=== PATIENT | male | born 1960 | race Caucasian/White ===

== ENCOUNTER 2021-11-12 06:33 | Outpatient (CLI) | payer BC, SELFPAY ==
--- NOTE | 2021-11-12 06:37 | USCV_ITS ---
Tk Ledesma Age: 61 Gender: M : 1960 Exam Date: 11/12/2021 07:12 Ordering Phys: Bella Ledesma MD Technologist: Balaji Luna Exam Location: [facility] [place] Indication: dizziness Risk Factors: Previous Vascular Surgery: Right Brachial BP: / Left Brachial BP: / Right Left Velocity (cm/s) Spectral Plaque Velocity (cm/s) Spectral Plaque Syst/Diast Broadening Syst/Diast Broadening 35.80/ 11.20 Prox CCA 63.70 / 26.40 39.10/ 11.50 Mid CCA 56.70 / 33.40 28.60/ 9.50 Distal CCA 63.70 / 28.70 / Prox ICA 62.90 / 22.50 / Mid ICA 59.00 / 25.60 / Distal ICA 129.00/ 65.10 100.80 ECA 76.90 ICA/CCA 1.04 Antegrade Vertebral Antegrade 53.00/ 24.80 cm/s 50.60/ 23.00 cm/s Tri Subclavian Tri 69.10 96.30 FINDINGS Comparison: none available. Complete occlusion right ICA with soft plaque. Mild diffuse common carotid plaque on the right. Mild diffuse left carotid atherosclerosis. No high grade stenosis. Bilateral antegrade vertebral arteries. CONCLUSIONS Complete occlusion right ICA. Mild diffuse left carotid atherosclerosis. Left ICA stenosis < 50%. Dr. Melina Morales DO (Electronically Signed) Final Date: 12 November 2021 09:16 S
== END 2021-11-12 06:34 | disposition home or self-care (01) ==
PROVIDERS: PCP Family Medicine; Visit Provider Family Medicine
DX: I65.23 Occlusion and stenosis of bilateral carotid arteries (principal); R42 Dizziness and giddiness; R94.8 Abnormal results of function studies of other organs and systems
CPT/HCPCS: 93880

== ENCOUNTER 2023-04-23 09:44 | Day surgery (SDC) | payer BC, SELFPAY ==
[2023-04-22 10:09] VITALS: BMI 27.0
--- NOTE | 2023-04-23 10:07 | SC_ITS ---
WS: [id number] Insertion of left infusion port., 04/23/2023 Clinical Data: Port-a-cath placement Comparison: None. Findings: Dr. Nuñez inserted a left infusion port. Impression: Insertion left infusion port.
[2023-04-23 10:16] VITALS: BP 169/114; PULSE 65; RESP 16; TEMP 36.8; O2SAT 97
[2023-04-23] MEDS: sodium chloride 0.9% 1,000 ML 30 ML IV (10:28)
[2023-04-23 11:47] VITALS: RESP 16; O2SAT 97
[2023-04-23] MEDS: fentaNYL 50 mcg/mL INJ 2mL IVP (11:47)
--- NOTE | 2023-04-23 12:03 | P.HPUD_ITS ---
Surgery/Procedure H&P Update DATE OF PROCEDURE: April 23, 2023 DATE H&P PERFORMED: 04/14/23 H&P UPDATE INFORMATION: I have reviewed H&P completed within last 30 days, I have examined patient prior to procedure, No changes to prior documentation and H&P is in [facility] EMR on date indicated PLANNED PROCEDURE: Operation Date: 04/23/23 11:40 Proposed Procedures p [id number] Placement of port a cath C09.8(Not Applicable) - Mau Baer MD
[2023-04-23] MEDS: ceFAZolin 2,000 MG in sodium chloride 0.9% (plus) 50 ML 100 MG IV (13:00)
[2023-04-23] MEDS: BUPivacaine 0.25% INJ 30 mL 20 ML INJECTION (13:14)
[2023-04-23] MEDS: lidocaine-epi 1% 20 mL INJ INJECTION (13:14)
[2023-04-23] MEDS: heparin, porcine 1,000 unit/mL INJ 10 mL 10000 UNIT INJECTION (13:27)
[2023-04-23 13:49] VITALS: BP 144/96; PULSE 64; RESP 16; O2SAT 94
--- NOTE | 2023-04-23 13:49 | PM.OP ---
Operative Report Date of procedure: April 23, 2023 Pre-op diagnosis: Recurrent neck cancer Post-op diagnosis: same Procedure done: Left subclavian port-a cath placement Implants: Port-a-cath subcutaneous port Surgeon: Dr. Baer, Dr. Wilkins Complications: none Findings: normal vascular anatomy. catheter positioned on the superior vena cava Brief History: this is a 62 y/o M who presents for port placement for chemotherapy due to recurrent tonsil cancer. patient has a very high risk profile, has received neck radiation and has occlusion of the right carotid artery. after discussion of the risks and benefits we have decided to proceed with left subclavian port placement. Procedure: All bony prominences were padded. She was given IV sedation and monitored throughout the case by the anesthesia personnel. SCDs were placed and turned on. The arms were tucked to the side. Patient received Ancef 2 g preoperatively IV. The bilateral chest wall was prepped and draped in usual sterile fashion using chlorhexidine base prep. Sterile drapes were applied. We did procedure pause prior to beginning. An 18 gauge needle was placed in the left subclavian vein. Dark, nonpulsatile blood was aspirated. A guidewire was placed through the needle centrally toward the atrial/vena caval junction. Fluoroscopy visualized good placement. The needle was removed and the guidewire was clipped to the drape with a hemostat. Further local anesthetic was infiltrated in the soft tissues of the left chest wall and a #15 blade was used to make a horizontal skin incision. A subcutaneous Mediport pocket was created using Bovie cautery, dissecting down through the skin and subcutaneous tissues. Meticulous hemostasis was achieved. The Mediport was sutured in position using 3-0 vicryl suture x2 stitches. A #15 blade was used to make a small skin arturo around the guidewire insertion area. The Mediport tubing was tunneled through the subcutaneous tissues up to the needle insertion location. A dilator with a peel-away sheath was placed over the guidewire and placed centrally. After measuring the Mediport tubing was cut to length so that the tip would end at the superior vena cava. The inner cannula and the guidewire were removed, leaving the dilator sheath in place. The Mediport was flushed. The tip of the catheter was inserted through the peel-away sheath and the peel-away sheath removed in the standard fashion. The Mediport was accessed with a straight Beasley needle and dark, nonpulsatile blood was aspirated and flushed using heparinized saline to hep-lock the Mediport. Final fluoroscopy visualization showed no kink in the catheter and the tip of the Mediport tubing in the superior vena cava. Both skin incisions were thoroughly irrigated and suctioned dry. Meticulous hemostasis noted. The dermis was approximated with 3-0 Vicryl in an interrupted fashion. Skin was closed with Dermabond. Patient was awakened from anesthesia and transferred via her cart to the recovery room in stable condition. All needle, sponge, and instrument counts were correct per the operating personnel x2 counts.
[2023-04-23 13:54] VITALS: BP 154/98; PULSE 65; RESP 16; O2SAT 95
[2023-04-23 13:56] VITALS: BP 152/88; PULSE 62; RESP 17; TEMP 36.6; O2SAT 94
[2023-04-23 14:11] VITALS: BP 139/89; PULSE 84; RESP 16; O2SAT 99
--- NOTE | 2023-04-23 14:15 | ANES.PREANE2 ---
Pre-Anesthetic Assessment Height/Weight: Height 1.85 m Weight 92.986 kg Temp Pulse Resp BP Pulse Ox O2 Del Method 97.8 F 62 17 152/88 94 Room Air 04/23/23 13:56 04/23/23 13:56 04/23/23 13:56 04/23/23 13:56 04/23/23 13:56 04/23/23 13:56 Operation Date: 04/23/23 11:40 Proposed Procedures p [id number] Placement of port a cath C09.8(Not Applicable) - Mau Baer MD Familial anesthetic complications: none Was Beta Pancho taken within 24 hours: N/A Was Clonidine taken within 24 hours: N/A Last intake: Intake Last Liquid Date 04/22/23 Last Liquid Time 22:00 Last Solid Date 04/22/23 Last Solid Time 17:30 Social No alcohol and No tobacco (h/o smoking) Exam alert, oriented x 3 and regular rate & rhythm Airway Submandibular: within normal limits Cervical ROM: within normal limits Mallampati: Class I Dentition: chipped Comments: Comments: Very poor dentition, hoarseness Pulmonary Chronic Obstructive Pulmonary Disease Metabolic Thyroid Disease Anesthetic Plan ASA status: 3 Anesthesia: MAC Medications/Allergies Home Medications Medication Instructions Recorded Confirmed Last Taken Type ergocalciferol (vitamin D2) 1,250 1,250 mcg PO .weekly #4 caps 04/09/23 04/22/23 1 Day Ago Rx mcg (50,000 unit) capsule ~04/21/23 thyroid (pork) 180 mg tablet 180 mg PO DAILY #30 tabs 04/09/23 04/22/23 1 Day Ago Rx (Bath Thyroid) ~04/21/23 prochlorperazine maleate 10 mg 10 mg PO Q4H PRN Mild Nausea #30 04/17/23 04/22/23 1 Day Ago Rx tablet (Compazine) tabs ~04/21/23 meloxicam 7.5 mg tablet 7.5 mg PO DAILY #5 tabs 04/23/23 Unknown Rx Allergies Allergy/AdvReac Type Severity Reaction Status Date / Time No Known Allergies Allergy Verified 04/22/23 10:07 Current Medications Generic Name Dose Route Start Last Admin Trade Name Freq PRN Reason Stop Dose Admin Fentanyl 50 mcg 04/23/23 10:06 04/23/23 11:47 Fentanyl 50 Mcg/Ml Inj 2ml IVP 25 mcg ONCE PRN Administration Preop Pain Sodium Chloride 1,000 mls @ 30 mls/hr 04/23/23 10:15 04/23/23 10:28 Sodium Chloride 0.9% IV 04/24/23 10:14 30 mls/hr .Q24H RENETTA Administration PFSH Anesthesia Medical History Hypothyroidism Squamous cell carcinoma of left tonsil Surgical History (Updated 04/14/23 @ 13:06 by Isaura Chun, CT) History of oral surgery (12/16/18) 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
--- NOTE | 2023-04-23 14:41 | ANE.PACU2 ---
Inpatient post-anesthesia follow up: Airway intact: Yes Vital signs: Temperature 97.8 F Pulse Rate 62 Respiratory Rate 17 Blood Pressure 152/88 Pulse Oximetry 94 Oxygen Delivery Me thod Room Air Oxygen Flow Rate Fraction of Inspir ed Oxygen Hydration adequate: Yes Nausea and vomiting: No Pain level: 2 Mental status: Baseline
== END 2023-04-23 14:30 | disposition home or self-care (01) ==
PROVIDERS: PCP Family Medicine; Visit Provider Surgery
PROC: (CPT 36561; principal; 2023-04-23 11:30)
DX: C76.0 Malignant neoplasm of head, face and neck (principal); Z45.2 Encounter for adjustment and management of vascular access device; Z87.891 Personal history of nicotine dependence
CPT/HCPCS: 36561; 77001; C1788; J0690; J1644; J2704; J3010; J3490; J7030

== ENCOUNTER 2023-04-28 07:30 | Oncology outpatient (recurring) (ONCR) | payer BC, SELFPAY ==
[2023-04-28 07:39] VITALS: BMI 26.6
[2023-04-28 07:40] VITALS: BP 143/81; PULSE 86; RESP 18; TEMP 37; O2SAT 93
[2023-04-28 08:06] LABS: Basophils % 0.4 %; Eosinophils # 0.4 10^3/uL (0.0-0.8); Eosinophils % 4.9 %; Hematocrit 41.3 % (42.0-52.0); Hemoglobin 13.5 g/dL (11.7-16.6); Lymphocytes # 0.6 10^3/uL (0.8-4.8); Lymphocytes % 7.9 %; Mean Corpuscular HGB Conc 32.7 g/dL (30.0-36.0); Mean Corpuscular Hemoglobin 28.7 pg (28.0-34.0); Mean Corpuscular Volume 87.9 fl (80-94); Mean Platelet Volume 8.5 fL (7.4-10.4); Monocytes # 0.4 10^3/uL (0.2-0.9); Monocytes % 5.1 %; Neutrophils # 6.52 10^3/uL (1.8-7.7); Neutrophils % 81.4 %; Nucleated Red Blood Cells % 0 %; Platelet Count 249 10^3/cmm (130-400); Red Cell Distribution Width 12.7 % (12.1-15.1)
[2023-04-28 08:31] LABS: Alanine Aminotransferase 11 U/L (0-41); Albumin Level 3.9 g/dL (3.5-5.2); Alkaline Phosphatase 81 U/L (40-130); Anion Gap 14.1 (5-19); Aspartate Amino Transferase 15 U/L (0-40); Blood Urea Nitrogen 15 mg/dL (8-23); Calcium 9.1 mg/dL (8.5-10.5); Carbon Dioxide 29 mmol/L (22-29); Chloride 102 mmol/L (98-107); Cortisol Random 12.99 ug/dL (2.47-19.5); Globulin 2.9 g/dL (1.3-4.6); Glomerular Filtration Rate 98.6 mL/min (90-130); Glucose 150 mg/dL (65-115); Immunoglobulin IGG 979 mg/dL (700-1600); Osmolality Calculated 296 mOsm/kg (285-295); Potassium 4.1 mmol/L (3.5-5.1); Sodium 141 mmol/L (136-145); Total Bilirubin 0.6 mg/dL (0.15-1.2); Total Protein 6.8 g/dL (6.6-8.7)
[2023-04-28 09:55] LABS: Thyroid Stimulating Hormone 0.98 uIU/mL (0.27-4.20)
[2023-04-28 10:12] LABS: Hepatitis A Antibody IgM Non-Reactive (Nonreactive); Hepatitis B Core AB, Total Non-Reactive (Nonreactive); Hepatitis B Surface Antigen Non-Reactive (Nonreactive); Hepatitis C Virus Antibody Non-Reactive (Nonreactive)
[2023-04-28 10:15] LABS: Hepatitis B Surface AB < 3.5 (11.5-1000)
[2023-04-28] MEDS: sodium chloride 0.9% 250 ML 75 ML IV (11:17)
[2023-04-28] MEDS: acetaminophen 325 mg Tablet 650 MG PO (11:20)
[2023-04-28] MEDS: OLANZapine 5 mg TABLET PO (11:20)
[2023-04-28] MEDS: diphenhydrAMINE 50 mg/mL SDV 1mL 25 MG IVP (11:22)
[2023-04-28] MEDS: palonosetron 0.25 mg/5 mL SDV IVP (11:24)
[2023-04-28] MEDS: famotidine 20 mg/2 mL INJ IVP (11:25)
[2023-04-28] MEDS: fosaprepitant 150 MG in sodium chloride 0.9% 150 ML 300 MG IV (11:29)
[2023-04-28] MEDS: pembrolizumab 200 MG in sodium chloride 0.9% 250 ML 516 MG IV (12:34)
[2023-04-28] MEDS: DOCEtaxeL 140 MG in sodium chloride 0.9%(non-DEHP) 250 ML 257 MG IV (13:20)
[2023-04-28] MEDS: CARBOplatin 750 MG in sodium chloride 0.9% 500 ML 575 MG IV (14:28)
[2023-04-28 15:45] VITALS: BP 131/88; PULSE 78; RESP 16; TEMP 36.5; O2SAT 93
== END 2023-04-28 23:59 | disposition home or self-care (01) ==
PROVIDERS: Nurse Practitioner Family; PCP Family Medicine; Visit Provider Internal Medicine Medical Oncology
DX: Z51.11 Encounter for antineoplastic chemotherapy (principal); C09.8 Malignant neoplasm of overlapping sites of tonsil
CPT/HCPCS: 80053; 82533; 82784; 84443; 85025; 86705; 86706; 86709; 86803; 87340; 96367; 96375; 96413; 96417; J1100; J1200; J1453; J1642; J2469; J3490; J7040; J7050; J9045; J9171; J9271

== ENCOUNTER 2023-05-07 15:03 | Oncology outpatient (recurring) (ONCR) | payer BC, SELFPAY ==
--- NOTE | 2023-04-29 17:11 | PC.NURSE ---
Called pt for Post new treatment, no answer. MAC
[2023-05-05 10:46] LABS: Basophils % 1.8 %; Eosinophils # 0.1 10^3/uL (0.0-0.8); Hematocrit 41.4 % (37-53); Lymphocytes # 0.6 10^3/uL (0.8-4.8); Lymphocytes % 24.2 %; Mean Corpuscular HGB Conc 33.1 g/dL (30-55); Mean Corpuscular Hemoglobin 28.8 pg (27-33); Monocytes # 0.1 10^3/uL (0.2-0.9); Monocytes % 4.8 %; Neutrophils # 1.47 10^3/uL (1.8-7.7); Neutrophils % 64.8 %; Nucleated Red Blood Cells % 0 %; Platelet Count 210 10^3/cmm (157-399); Red Blood Count 4.76 10^6/uL (3.85-5.65); Red Cell Distribution Width 12.3 % (12.1-15.1); White Blood Count 2.27 10^3/uL (3.29-11.43)
[2023-05-05 11:14] LABS: Alanine Aminotransferase 39 U/L (0-41); Albumin Level 3.9 g/dL (3.5-5.2); Alkaline Phosphatase 78 U/L (40-130); Anion Gap 13.4 (5-19); Aspartate Amino Transferase 20 U/L (0-40); Blood Urea Nitrogen 20 mg/dL (8-23); Calcium 8.5 mg/dL (8.5-10.5); Carbon Dioxide 26 mmol/L (22-29); Chloride 100 mmol/L (98-107); Glomerular Filtration Rate 86.1 mL/min (90-130); Glucose 132 mg/dL (65-115); Osmolality Calculated 284 mOsm/kg (285-295); Potassium 4.4 mmol/L (3.5-5.1); Sodium 135 mmol/L (136-145); Total Bilirubin 0.8 mg/dL (0.15-1.2); Total Protein 6.9 g/dL (6.6-8.7)
[2023-05-07] MEDS: sodium chloride 0.9% 1,000 ML 999 ML IV (15:11)
[2023-05-07] MEDS: alteplase 1 mg/mL SDV 2 mL 2 MG INTRACATH (15:42)
[2023-05-07 17:44] VITALS: BP 191/101; PULSE 68; RESP 70; TEMP 36.8; O2SAT 96
--- NOTE | 2023-05-07 17:44 | PC.NURSE ---
Patient had hydration and post hydration patient's B/P was elevated. Patient had no s/s of having a headache or blurry vision. Patient did not feel the need to be evaluated at the ER. Patient educated in regards to his b/p and s/s of headaches and blurry vision. Patient's spouse is a doctor and he will let his know what his b/p was and they will monitor it at home.
== END 2023-05-08 23:59 | disposition home or self-care (01) ==
PROVIDERS: Nurse Practitioner Family; PCP Family Medicine; Visit Provider Internal Medicine Medical Oncology
DX: C09.8 Malignant neoplasm of overlapping sites of tonsil (principal)
CPT/HCPCS: 36591; 80053; 85025; J2997; J7030

== ENCOUNTER 2023-05-14 15:59 | Emergency (ER) | payer BC, SELFPAY ==
--- NOTE | 2023-05-14 16:05 | XRR_ITS ---
PROCEDURE INFORMATION: Exam: XR Chest Exam date and time: 05/14/2023 4:16 PM Age: 62 years old Clinical indication: Other: Weakness; Prior surgery; Surgery date: 6+ months; Surgery type: Port; Patient HX: HX of throat cancer TECHNIQUE: Imaging protocol: Radiologic exam of the chest. Views: 1 view. COMPARISON: No relevant prior studies available. FINDINGS: Tubes, catheters and devices: Left-sided Port-A-Cath. Lungs: Unremarkable. No consolidation. Pleural spaces: Unremarkable. No pleural effusion. No pneumothorax. Heart/Mediastinum: Unremarkable. No cardiomegaly. Bones/joints: Unremarkable. XR/XR chest 1V portable [id number] IMPRESSION: Negative for infiltrate.
[2023-05-14 16:06] VITALS: BP 91/61; PULSE 70; RESP 18; TEMP 36.4; O2SAT 97
[2023-05-14 16:42] LABS: Basophils % 0.5 %; Eosinophils % 0.2 %; Lymphocytes # 0.7 10^3/uL (0.8-4.8); Mean Corpuscular HGB Conc 32.7 g/dL (30-55); Mean Corpuscular Hemoglobin 28.4 pg (27-33); Mean Corpuscular Volume 86.9 fl (82-101); Mean Platelet Volume 8.2 fL (7.4-10.4); Monocytes # 0.4 10^3/uL (0.2-0.9); Monocytes % 5.6 %; Neutrophils # 5.49 10^3/uL (1.8-7.7); Neutrophils % 82.4 %; Nucleated Red Blood Cells % 0 %; Platelet Count 185 10^3/cmm (157-399); Red Blood Count 4.72 10^6/uL (3.85-5.65); Red Cell Distribution Width 12.7 % (12.1-15.1); White Blood Count 6.65 10^3/uL (3.29-11.43)
--- NOTE | 2023-05-14 16:42 | ECG_ITS ---
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 Measurements Intervals [place] Rate: 61 P: 56 NM: 147 QRS: 26 QRSD: 110 T: 44 QT: 401 QTc: 405 Interpretive Statements SINUS RHYTHM No previous ECG available for comparison Electronically Signed On 05-15-2023 21:18:31 CDT by Cory Pate M.D. [email or web address]
--- NOTE | 2023-05-14 16:43 | ED_ITS ---
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 He is undergoing chemo his last chemo was about 2 weeks ago he is scheduled for chemo next week. Last week he was in and seen oncology is very weak he required IV hydration. He is has a PEG tube in place where he gets all of his intake from him. States he is not able to keep anything down he has been lightheaded and dizzy difficult time walking. He denies chest or abdominal pain no shortness of breath no fever sweats or chills MD Complaint: generalized weakness Onset (ago): day(s) Migration: none Severity: mild Quality: tingling Relieving factors: none Exacerbating factors: none Context: new medication Associated symptoms: Denies chest pain, chills, confusion, melena, decreased appetite, diaphoresis, dysuria, easy bruising, fever(s), headache(s), myalgias, nausea, rash, short of breath, syncope or vomiting Review of Systems Const: Denies: fever(s), chills or diaphoresis Card: Denies: chest pain or syncope GI: Denies: nausea, vomiting or melena : Denies: dysuria Neuro: Denies: headache(s) or confusion Tacos/Lymph: Denies: easy bruising PFSH ED PFSH: Medical History Hypothyroidism Port-A-Cath in place 04/23/23 Dr Baer Squamous cell carcinoma of left tonsil Surgical History History of oral surgery (12/16/18) 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) Bilateral Family History Father Cancer Lung Diabetes Denies family history of CAD (coronary artery disease) Clotting disorder Dementia Hyperlipidemia Psychiatric illness Chronic kidney disease (CKD) Suicide Anesthesia complication Bleeding disorder Lung disease Hypertension Stroke Social History Smoking and tobacco status: former smoker Quit status (tobacco): has quit using tobacco Former quit date comment: smoked x 20 years Alcohol intake: never Physical Exam Const: GENERAL APPEARANCE: cooperative ORIENTATION/CONSCIOUSNESS: Yes awake, Yes oriented to person, Yes oriented to place and Yes oriented to time HENMT: COMMON NORMALS: normocephalic, atraumatic and hearing grossly normal bilaterally HEAD & SCALP: normocephalic and atraumatic Resp: COMMON NORMALS: normal respiratory effort, No retractions, No use of accessory muscles and clear to auscultation bilaterally AUSCULTATION: clear to auscultation bilaterally Cardio: COMMON NORMALS: regular rate, regular rhythm and No murmurs present (Cardio) RATE: regular rate RHYTHM: regular rhythm GI: COMMON NORMALS: Soft to palpation and No hepatosplenomegaly present AUSCULTATION: Yes normoactive bowel sounds PALPATION: Yes Soft to palpation, No Tenderness to palpation present (GI), No Guarding due to palpation present (GI) and Yes No hepatosplenomegaly present Extremity: COMMON NORMALS: normal to inspection, capillary refill normal, no clubbing, cyanosis or edema, no calf tenderness and no pedal edema Neuro: SENSORIUM/ORIENTATION: Yes oriented to person, Yes oriented to place and Yes oriented to time Skin: COMMON NORMALS: no rashes or lesions noted GENERAL SKIN EXAM: no rashes or lesions noted Course Vital Signs: Vital signs: Vital Signs Temperature 97.5 F L 05/14/23 16:06 Pulse Rate 58 L 05/14/23 18:00 Respiratory Rate 18 05/14/23 16:06 Blood Pressure 127/83 05/14/23 18:00 Pulse Oximetry 96 05/14/23 18:30 Oxygen Delivery Me thod Room Air 05/14/23 16:44 MDM - Weakness Medical Decision Making Care signed out to Dr. Boyer at change of shift. See final notes for diagnosis and disposition. Patient presents to the ER with complaints of weakness nausea vomiting and dehydration. Patient is undergoing treatment for squamous cell carcinoma of the pharyngeal area. Patient did have some low blood pressures in the 70s over 50s. Patient was bolused some normal saline as well as labs was obtained. Labs was essentially benign with no acute issues. Patient tolerated fluid well. Patient was walked after the fluid bolus and he did well. Patient be discharged home to follow-up with his oncologist and/or PCP. Lab Data 05/14/23 16:23 05/14/23 16: Radiology Impressions Chest X-Ray 05/14/23 16:05 IMPRESSION: Negative for infiltrate. Laboratory Results WBC 6.65 10^3/uL (3.29-11.43) 05/14/23 16: RBC 4.72 10^6/uL (3.85-5.65) 05/14/23 16:23 Hgb 13.40 g/dL (11.27-16.99) 05/14/23 16: Hct 41.0 % (37-53) 05/14/23 16: MCV 86.9 fl (82-101) 05/14/23 16: MCH 28.4 pg (27-33) 05/14/23 16: MCHC 32.7 g/dL (30-55) 05/14/23 16: RDW 12.7 % (12.1-15.1) 05/14/23 16: Plt Count 185 10^3/cmm (157-399) 05/14/23 16: MPV 8.2 fL (7.4-10.4) 05/14/23 16: Neut % (Auto) 82.4 % 05/14/23 16:23 Lymph % (Auto) 11.0 % 05/14/23 16:23 [place]aine % (Auto) 5.6 % 05/14/23 16:23 Eos % (Auto) 0.2 % 05/14/23 16:23 Baso % (Auto) 0.5 % 05/14/23 16:23 Neut # (Auto) 5.49 10^3/uL (1.8-7.7) 05/14/23 16:23 Lymph # (Auto) 0.7 10^3/uL (0.8-4.8) L 05/14/23 16:23 [place]aine # (Auto) 0.4 10^3/uL (0.2-0.9) 05/14/23 16:23 Eos # (Auto) 0.0 10^3/uL (0.0-0.8) 09/06/23 16:23 Baso # (Auto) 0.0 10^3/uL (0.0-0.1) 05/14/23 16:23 Nucleated RBC % (auto) 0 % 05/14/23 16:23 Nucleated RBCs # 0.0 /100WBC 05/14/23 16:23 Sodium 139 mmol/L (136-145) 05/14/23 16:23 Potassium 5.1 mmol/L (3.5-5.1) 05/14/23 16:23 Chloride 101 mmol/L (98-107) 05/14/23 16:23 Carbon Dioxide 28 mmol/L (22-29) 05/14/23 16:23 Anion Gap 15.1 (5-19) 05/14/23 16:23 BUN 15 mg/dL (8-23) 05/14/23 16:23 Creatinine 0.9 mg/dL (0.7-1.2) 05/14/23 16:23 GFR Calculation 86.1 mL/min (90-130) L 05/14/23 16:23 Glucose 123 mg/dL (65-115) H 05/14/23 16:23 Calculated Osmolality 290 mOsm/kg (285-295) 05/14/23 16:23 Calcium 9.1 mg/dL (8.5-10.5) 05/14/23 16:23 Total Bilirubin 0.5 mg/dL (0.15-1.2) 05/14/23 16:23 AST 14 U/L (0-40) 05/14/23 16:23 ALT 15 U/L (0-41) 05/14/23 16:23 Alkaline Phosphatase 83 U/L (40-130) 05/14/23 16:23 Total Protein 7.2 g/dL (6.6-8.7) 05/14/23 16:23 Albumin 4.1 g/dL (3.5-5.2) 05/14/23 16:23 Globulin 3.1 g/dL (1.3-4.6) 05/14/23 16:23 TSH 4.47 uIU/mL (0.27-4.20) H 05/14/23 16:23 Urine Color Shantelle (Yellow) 05/14/23 18:09 Urine Appearance Clear (CLEAR) 05/14/23 18:09 Urine pH 5 (5-7) 05/14/23 18:09 Ur Specific [place] 1.015 (1.005-1.030) 05/14/23 18:09 Urine Protein Trace (Negative) 05/14/23 18:09 Urine Glucose (UA) Norm (Normal) 05/14/23 18:09 Urine Ketones Negative (Negative) 05/14/23 18:09 Urine Blood Neg (Negative) 05/14/23 18:09 Urine Nitrate Negative (Negative) 05/14/23 18:09 Urine Bilirubin Neg (Negative) 05/14/23 18:09 Urine Urobilinogen 1 mg/dL (Negative) H 05/14/23 18:09 Ur Leukocyte Esterase Trace (Negative) H 05/14/23 18:09 Urine RBC 0-4 /hpf (0-2) H 05/14/23 18:09 Urine WBC 5-10 /hpf (0-5) H 05/14/23 18:09 Ur Squamous Epith Cells 0-4 /hpf (0-5) H 05/14/23 18:09 Amorphous Sediment 3+ /hpf 05/14/23 18:09 Urine Bacteria None /hpf (NONE) 05/14/23 18:09 Hyaline Casts 10-15 /lpf H 05/14/23 18:09 Coarse Granular Casts 0-4 /lpf H 05/14/23 18:09 Urine Mucus 4+ /hpf 05/14/23 18:09 Discharge Plan Discharge Patient Disposition: Home Clinical Impression: Dehydration Nausea & vomiting Qualifiers: Vomiting type: unspecified Qualified Code(s): R11.2 - Nausea with vomiting, u nspecified Condition: Stable Prescriptions: No Action ergocalciferol (vitamin D2) 1,250 mcg (50,000 unit) capsule 1,250 mcg PO .weekly Qty: 4 0RF [place] Thyroid 180 mg tablet 180 mg PO DAILY Qty: 30 0RF dexamethasone 4 mg tablet 8 mg PO BID Qty: 36 2RF Rx Instructions: take on the day before treatment, day of treatment (hold morning dose day of treatment), and day after treatment lorazepam 1 mg tablet 0.5 - 1 mg PO Q6H PRN (Reason: Severe Nausea) Qty: 30 3RF ondansetron 8 mg tablet,disintegrating 8 mg PO Q8H PRN (Reason: nausea and vomiting) Qty: 30 2RF meloxicam 7.5 mg tablet 7.5 mg PO DAILY Qty: 5 0RF Discharge Orders: Discharge ED (Routine); Ordered 05/14/23 Ordered By: Gato Boyer Referrals: Bella Ledesma MD [Primary Care Provider] - 1 week Patient Instructions: Dehydration (ED), Acute Nausea and Vomiting (DC) Activity Restrictions/Additional Instructions: Please push plenty of fluids. Please follow-up with your oncologist and/or primary care doctor in the next 7 days or sooner as needed. Please return to the ER if your symptoms worsen or continue. Coding Level of Care Code ED Tricot Knitter for Chg Fwd Documented by User: Gato Boyer DO 05/14/23 18:32 HPI - Weakness General: Chief complaint: Weakness Stated complaint: weakness Time Seen by Provider: 05/14/23 16:36 PFSH ED PFSH: Medical History Hypothyroidism Port-A-Cath in place 04/23/23 Dr Baer Squamous cell carcinoma of left tonsil Surgical History History of oral surgery (12/16/18) 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) Bilateral Family History Father Cancer Lung Diabetes Denies family history of CAD (coronary artery disease) Clotting disorder Dementia Hyperlipidemia Psychiatric illness Chronic kidney disease (CKD) Suicide Anesthesia complication Bleeding disorder Lung disease Hypertension Stroke Social History Smoking and tobacco status: former smoker Quit status (tobacco): has quit using tobacco Former quit date comment: smoked x 20 years Alcohol intake: never Course Vital Signs: Vital signs: Vital Signs Temperature 97.5 F L 05/14/23 16:06 Pulse Rate 58 L 05/14/23 18:00 Respiratory Rate 18 05/14/23 16:06 Blood Pressure 127/83 05/14/23 18:00 Pulse Oximetry 96 05/14/23 18:30 Oxygen Delivery Me thod Room Air 05/14/23 16:44 MDM - Weakness Medical Decision Making Patient presents to the ER with complaints of weakness nausea vomiting and dehydration. Patient is undergoing treatment for squamous cell carcinoma of the pharyngeal area. Patient did have some low blood pressures in the 70s over 50s. Patient was bolused some normal saline as well as labs was obtained. Labs was essentially benign with no acute issues. Patient tolerated fluid well. Patient was walked after the fluid bolus and he did well. Patient be discharged home to follow-up with his oncologist and/or PCP. Lab Data 05/14/23 16:23 05/14/23 16:23 Radiology Impressions Chest X-Ray 05/14/23 16:05 IMPRESSION: Negative for infiltrate. Laboratory Results WBC 6.65 10^3/uL (3.29-11.43) 05/14/23 16: RBC 4.72 10^6/uL (3.85-5.65) 05/14/23 16:23 Hgb 13.40 g/dL (11.27-16.99) 05/14/23 16:23 Hct 41.0 % (37-53) 05/14/23 16:23 MCV 86.9 fl (82-101) 05/14/23 16:23 MCH 28.4 pg (27-33) 05/14/23 16: MCHC 32.7 g/dL (30-55) 05/14/23 16:23 RDW 12.7 % (12.1-15.1) 05/14/23 16:23 Plt Count 185 10^3/cmm (157-399) 05/14/23 16:23 MPV 8.2 fL (7.4-10.4) 05/14/23 16:23 Neut % (Auto) 82.4 % 05/14/23 16:23 Lymph % (Auto) 11.0 % 05/14/23 16:23 Blaine % (Auto) 5.6 % 05/14/23 16:23 Eos % (Auto) 0.2 % 05/14/23 16:23 Baso % (Auto) 0.5 % 05/14/23 16:23 Neut # (Auto) 5.49 10^3/uL (1.8-7.7) 05/14/23 16:23 Lymph # (Auto) 0.7 10^3/uL (0.8-4.8) L 05/14/23 16:23 [place] # (Auto) 0.4 10^3/uL (0.2-0.9) 05/14/23 16:23 Eos # (Auto) 0.0 10^3/uL (0.0-0.8) 05/14/23 16:23 Baso # (Auto) 0.0 10^3/uL (0.0-0.1) 05/14/23 16: Nucleated RBC % (auto) 0 % 05/14/23 16: Nucleated RBCs # 0.0 /100WBC 05/14/23 16:23 Sodium 139 mmol/L (136-145) 05/14/23 16:23 Potassium 5.1 mmol/L (3.5-5.1) 05/14/23 16:23 Chloride 101 mmol/L (98-107) 05/14/23 16:23 Carbon Dioxide 28 mmol/L (22-29) 05/14/23 16:23 Anion Gap 15.1 (5-19) 05/14/23 16:23 BUN 15 mg/dL (8-23) 05/14/23 16:23 Creatinine 0.9 mg/dL (0.7-1.2) 05/14/23 16:23 GFR Calculation 86.1 mL/min (90-130) L 05/14/23 16:23 Glucose 123 mg/dL (65-115) H 05/14/23 16:23 Calculated Osmolality 290 mOsm/kg (285-295) 05/14/23 16:23 Calcium 9.1 mg/dL (8.5-10.5) 05/14/23 16:23 Total Bilirubin 0.5 mg/dL (0.15-1.2) 05/14/23 16:23 AST 14 U/L (0-40) 05/14/23 16:23 ALT 15 U/L (0-41) 05/14/23 16:23 Alkaline Phosphatase 83 U/L (40-130) 05/14/23 16:23 Total Protein 7.2 g/dL (6.6-8.7) 05/14/23 16:23 Albumin 4.1 g/dL (3.5-5.2) 05/14/23 16:23 Globulin 3.1 g/dL (1.3-4.6) 05/14/23 16:23 TSH 4.47 uIU/mL (0.27-4.20) H 05/14/23 16:23 Urine Color [place]elle (Yellow) 05/14/23 18:09 Urine Appearance Clear (CLEAR) 05/14/23 18:09 Urine pH 5 (5-7) 05/14/23 18:09 Ur Specific [place] 1.015 (1.005-1.030) 05/14/23 18:09 Urine Protein Trace (Negative) 05/14/23 18:09 Urine Glucose (UA) Norm (Normal) 05/14/23 18:09 Urine Ketones Negative (Negative) 05/14/23 18:09 Urine Blood Neg (Negative) 05/14/23 18:09 Urine Nitrate Negative (Negative) 05/14/23 18:09 Urine Bilirubin Neg (Negative) 05/14/23 18:09 Urine Urobilinogen 1 mg/dL (Negative) H 05/14/23 18:09 Ur Leukocyte Esterase Trace (Negative) H 05/14/23 18:09 Urine RBC 0-4 /hpf (0-2) H 05/14/23 18:09 Urine WBC 5-10 /hpf (0-5) H 05/14/23 18:09 Ur Squamous Epith Cells 0-4 /hpf (0-5) H 05/14/23 18:09 Amorphous Sediment 3+ /hpf 05/14/23 18:09 Urine Bacteria None /hpf (NONE) 05/14/23 18:09 Hyaline Casts 10-15 /lpf H 05/14/23 18:09 Coarse Granular Casts 0-4 /lpf H 05/14/23 18:09 Urine Mucus 4+ /hpf 05/14/23 18:09 Discharge Plan Discharge Patient Disposition: Home Clinical Impression: Dehydration Nausea & vomiting Qualifiers: Vomiting type: unspecified Qualified Code(s): R11.2 - Nausea with vomiting, unspecified Condition: Stable Prescriptions: No Action ergocalciferol (vitamin D2) 1,250 mcg (50,000 unit) capsule 1,250 mcg PO .weekly Qty: 4 0RF [place] Thyroid 180 mg tablet 180 mg PO DAILY Qty: 30 0RF dexamethasone 4 mg tablet 8 mg PO BID Qty: 36 2RF Rx Instructions: take on the day before treatment, day of treatment (hold morning dose day of treatment), and day after treatment lorazepam 1 mg tablet 0.5 - 1 mg PO Q6H PRN (Reason: Severe Nausea) Qty: 30 3RF ondansetron 8 mg tablet,disintegrating 8 mg PO Q8H PRN (Reason: nausea and vomiting) Qty: 30 2RF meloxicam 7.5 mg tablet 7.5 mg PO DAILY Qty: 5 0RF Discharge Orders: Discharge ED (Routine); Ordered 05/14/23 Ordered By: Gato Boyer Referrals: Bella Ledesma MD [Primary Care Provider] - 1 week Patient Instructions: Dehydration (ED), Acute Nausea and Vomiting (DC) Activity Restrictions/Additional Instructions: Please push plenty of fluids. Please follow-up with your oncologist and/or primary care doctor in the next 7 days or sooner as needed. Please return to the ER if your symptoms worsen or continue. Coding Level of Care Code ED Tricot Knitter for Sabrina Montoya
[2023-05-14 16:44] VITALS: BP 75/53; PULSE 69; O2SAT 90
[2023-05-14] MEDS: sodium chloride 0.9% 1,000 ML 999 ML IV ×2 (16:57→17:47)
[2023-05-14 17:14] VITALS: BP 79/58; PULSE 66; O2SAT 91
[2023-05-14 17:18] LABS: Alanine Aminotransferase 15 U/L (0-41); Albumin Level 4.1 g/dL (3.5-5.2); Alkaline Phosphatase 83 U/L (40-130); Anion Gap 15.1 (5-19); Aspartate Amino Transferase 14 U/L (0-40); Blood Urea Nitrogen 15 mg/dL (8-23); Calcium 9.1 mg/dL (8.5-10.5); Carbon Dioxide 28 mmol/L (22-29); Chloride 101 mmol/L (98-107); Globulin 3.1 g/dL (1.3-4.6); Glomerular Filtration Rate 86.1 mL/min (90-130); Glucose 123 mg/dL (65-115); Osmolality Calculated 290 mOsm/kg (285-295); Potassium 5.1 mmol/L (3.5-5.1); Sodium 139 mmol/L (136-145); Thyroid Stimulating Hormone 4.47 uIU/mL (0.27-4.20); Total Bilirubin 0.5 mg/dL (0.15-1.2); Total Protein 7.2 g/dL (6.6-8.7)
[2023-05-14 17:30] VITALS: BP 90/63; PULSE 62; O2SAT 91
[2023-05-14 18:00] VITALS: BP 127/83; PULSE 58; O2SAT 93
[2023-05-14 18:22] LABS: Add Urine Microscopic? YES; Bilirubin Urine Neg (Negative); Blood Urine Neg (Negative); Glucose Urine UA Norm (Normal); Ketones Urine Negative (Negative); Leukocyte Esterase Urine Trace (Negative); Nitrate Urine Negative (Negative); Protein Urine Trace (Negative); Specific Gravity, Urine 1.015 (1.005-1.030); Urine Appearance Clear (CLEAR); Urine Color Amber (Yellow); Urobilinogen Urine 1 mg/dL (Negative); pH Urine 5 (5-7)
[2023-05-14 18:23] LABS: Add Urine Culture? No; Amorphous Sediment Urine 3+ /hpf; Coarse Granular Casts Urine 0-4 /lpf; Mucus Urine 4+ /hpf; RBC Urine 0-4 /hpf (0-2); Squamous Epithelial Cell Urine 0-4 /hpf (0-5)
[2023-05-14 18:30] VITALS: O2SAT 96
== END 2023-05-14 18:44 | disposition home or self-care (01) ==
PROVIDERS: Emergency Medicine; Emergency Provider Family Medicine; PCP Family Medicine
DX: R11.2 Nausea with vomiting, unspecified (principal); E86.0 Dehydration; Z87.891 Personal history of nicotine dependence; Z85.89 Personal history of malignant neoplasm of other organs and systems
CPT/HCPCS: 71045; 80053; 81001; 84443; 85025; 93005; 96360; 96361; 99285; J7030

== ENCOUNTER 2023-05-19 09:55 | Oncology outpatient (recurring) (ONCR) | payer BC, SELFPAY ==
[2023-05-19 09:57] VITALS: BMI 25.7
[2023-05-19 10:00] VITALS: BP 144/82; PULSE 82; RESP 18; TEMP 36.5; O2SAT 97
[2023-05-19 10:22] LABS: Basophils % 0.3 %; Eosinophils % 0.6 %; Hematocrit 38.1 % (37-53); Lymphocytes # 0.7 10^3/uL (0.8-4.8); Lymphocytes % 10.2 %; Mean Corpuscular HGB Conc 33.3 g/dL (30-55); Mean Corpuscular Hemoglobin 28.9 pg (27-33); Mean Corpuscular Volume 86.6 fl (82-101); Mean Platelet Volume 8.4 fL (7.4-10.4); Monocytes # 0.3 10^3/uL (0.2-0.9); Monocytes % 4.5 %; Neutrophils # 5.44 10^3/uL (1.8-7.7); Neutrophils % 83.9 %; Nucleated Red Blood Cells % 0 %; Platelet Count 157 10^3/cmm (157-399); Red Cell Distribution Width 13.3 % (12.1-15.1); White Blood Count 6.48 10^3/uL (3.29-11.43)
[2023-05-19 10:43] LABS: Alanine Aminotransferase 12 U/L (0-41); Albumin Level 3.7 g/dL (3.5-5.2); Alkaline Phosphatase 80 U/L (40-130); Blood Urea Nitrogen 14 mg/dL (8-23); Calcium 8.8 mg/dL (8.5-10.5); Carbon Dioxide 27 mmol/L (22-29); Chloride 97 mmol/L (98-107); Globulin 3.1 g/dL (1.3-4.6); Glucose 132 mg/dL (65-115); Osmolality Calculated 284 mOsm/kg (285-295); Sodium 136 mmol/L (136-145); Total Bilirubin 0.4 mg/dL (0.15-1.2); Total Protein 6.8 g/dL (6.6-8.7)
[2023-05-19 10:49] LABS: Anion Gap 16.4 (5-19); Aspartate Amino Transferase 14 U/L (0-40); Potassium 4.4 mmol/L (3.5-5.1)
[2023-05-19] MEDS: sodium chloride 0.9% 250 ML 100 ML IV (11:47)
[2023-05-19] MEDS: acetaminophen 325 mg Tablet 650 MG PO (11:48)
[2023-05-19] MEDS: palonosetron 0.25 mg/5 mL SDV IVP (11:49)
[2023-05-19] MEDS: OLANZapine 5 mg TABLET PO (11:49)
[2023-05-19] MEDS: diphenhydrAMINE 50 mg/mL SDV 1mL 25 MG IVP (11:50)
[2023-05-19] MEDS: famotidine 20 mg/2 mL INJ IVP (11:50)
[2023-05-19] MEDS: dexamethasone 20 MG in sodium chloride 0.9% 50 ML 188 MG IV (11:57)
[2023-05-19] MEDS: fosaprepitant 150 MG in sodium chloride 0.9% 150 ML 300 MG IV (12:14)
[2023-05-19] MEDS: pembrolizumab 200 MG in sodium chloride 0.9% 250 ML 516 MG IV (12:53)
[2023-05-19] MEDS: CARBOplatin 750 MG in sodium chloride 0.9% 500 ML 575 MG IV (14:41)
[2023-05-19 15:51] VITALS: BP 137/68; PULSE 80; TEMP 36.5; O2SAT 94
== END 2023-05-19 23:59 | disposition home or self-care (01) ==
PROVIDERS: Nurse Practitioner Family; PCP Family Medicine; Visit Provider Internal Medicine Medical Oncology
DX: Z51.11 Encounter for antineoplastic chemotherapy (principal); C09.8 Malignant neoplasm of overlapping sites of tonsil
CPT/HCPCS: 80053; 85025; 96367; 96375; 96413; 96417; J1100; J1200; J1453; J1642; J2469; J3490; J7040; J7050; J9045; J9171; J9271

== ENCOUNTER 2023-05-28 06:53 | Outpatient (CLI) | payer BC, SELFPAY ==
--- NOTE | 2023-05-28 07:15 | CT_ITS ---
WS: [id number] CT NECK TECHNIQUE: Contrast-enhanced CT of the neck with coronal and sagittal reformatted images. CLINICAL INFORMATION: follow up COMPARISON: None. DLP: 161.[address] scans at [facility] use at least one of these dose optimization techniques: automated e xposure control; mA and/or kV adjustment per patient size (includes targeted exams where dose is matc hed to clinical indication); or iterative reconstruction. FINDINGS: No preoperative imaging available. No prior imaging available for comparison. Postoperative changes neck dissection with surgical clips in the neck bilaterally. Bilateral neck dis section. Postoperative asymmetry involving the tongue base. RIGHT ICA appears occluded or ligated. So ft tissue thickening with small blush of enhancement involving the RIGHT retropharyngeal space. This may be postoperative or related to treatment-related changes. PET/CT could be utilized to evaluate fo r active disease. Treatment related changes in the neck bilaterally with thickening of the platysma. Parotid glands are normal. Submandibular glands have been resected. LEFT carotid is patent. Mild mucosal thickening in the RIGHT greater than LEFT maxillary sinus. Mastoid air cells are well aerated. Partially visualized intracranial contents are normal. Lung apices are well aerated.Ballooning of the RIGHT laryngeal ventricle suspicious for RIGHT vocal c ord paralysis with rotation of the RIGHT arytenoid. IMPRESSION: 1. Prior postoperative changes bilateral neck dissection. 2. Soft tissue thickening involving the RIGHT retropharyngeal space with a small blush of enhancemen t which may be vascular. FDG-PET can be utilized to evaluate for active disease in this location. Are a of soft tissue thickening measures 2.4 x 1.7 cm. 3. Occlusion or ligation of the RIGHT ICA. LEFT ICA is patent. 4. Mild mucosal thickening in the maxillary sinuses. 5. Treatment-related changes in the neck bilaterally Ballooning of the RIGHT laryngeal ventricle andrey picious for RIGHT vocal cord paralysis.
[2023-05-28] MEDS: iohexol 350 mg/mL 500 mL Btl (per mL) IV (07:30)
== END 2023-05-28 06:54 | disposition home or self-care (01) ==
LOC: RAD 06:55
PROVIDERS: PCP Family Medicine; Visit Provider Internal Medicine Medical Oncology
DX: C09.8 Malignant neoplasm of overlapping sites of tonsil (principal); Z98.890 Other specified postprocedural states; Z90.09 Acquired absence of other part of head and neck; I65.21 Occlusion and stenosis of right carotid artery; R93.89 Abnormal findings on diagnostic imaging of other specified body structures
CPT/HCPCS: 70491; Q9967

== ENCOUNTER 2023-06-02 13:45 | Oncology outpatient (recurring) (ONCR) | payer BC, SELFPAY ==
[2023-05-26 11:48] LABS: Basophils % 2.7 %; Eosinophils % 1.8 %; Hematocrit 38.4 % (37-53); Lymphocytes # 0.4 10^3/uL (0.8-4.8); Lymphocytes % 39.6 %; Mean Corpuscular HGB Conc 33.6 g/dL (30-55); Mean Corpuscular Hemoglobin 28.7 pg (27-33); Mean Corpuscular Volume 85.5 fl (82-101); Mean Platelet Volume 8.6 fL (7.4-10.4); Monocytes # 0.1 10^3/uL (0.2-0.9); Monocytes % 9.9 %; Nucleated Red Blood Cells % 0 %; Platelet Count 216 10^3/cmm (157-399); Red Blood Count 4.49 10^6/uL (3.85-5.65); White Blood Count 1.11 10^3/uL (3.29-11.43)
[2023-05-26 11:50] LABS: Neutrophils # 0.51 10^3/uL (1.8-7.7)
[2023-05-26 11:52] VITALS: BP 89/62; PULSE 78; RESP 17; TEMP 37.1; O2SAT 96
[2023-05-26] MEDS: sodium chloride 0.9% 1,000 ML 999 ML IV (12:01)
[2023-05-26 12:13] LABS: Alanine Aminotransferase 42 U/L (0-41); Albumin Level 3.9 g/dL (3.5-5.2); Alkaline Phosphatase 82 U/L (40-130); Anion Gap 11.4 (5-19); Aspartate Amino Transferase 34 U/L (0-40); Blood Urea Nitrogen 22 mg/dL (8-23); Calcium 8.8 mg/dL (8.5-10.5); Carbon Dioxide 29 mmol/L (22-29); Chloride 98 mmol/L (98-107); Globulin 2.8 g/dL (1.3-4.6); Glomerular Filtration Rate 98.6 mL/min (90-130); Glucose 185 mg/dL (65-115); Osmolality Calculated 286 mOsm/kg (285-295); Potassium 4.4 mmol/L (3.5-5.1); Sodium 134 mmol/L (136-145); Total Bilirubin 0.7 mg/dL (0.15-1.2); Total Protein 6.7 g/dL (6.6-8.7)
[2023-05-26 13:15] VITALS: BP 104/70; PULSE 71; RESP 16; TEMP 37; O2SAT 92
[2023-06-02 13:27] VITALS: BP 107/74; PULSE 85; RESP 16; TEMP 36.4; O2SAT 92
[2023-06-02 13:43] LABS: Basophils % 0.5 %; Eosinophils % 0.2 %; Hematocrit 35.7 % (37-53); Lymphocytes # 0.8 10^3/uL (0.8-4.8); Lymphocytes % 14.1 %; Mean Corpuscular HGB Conc 33.3 g/dL (30-55); Mean Corpuscular Volume 86.9 fl (82-101); Mean Platelet Volume 8.3 fL (7.4-10.4); Monocytes # 0.7 10^3/uL (0.2-0.9); Monocytes % 11.8 %; Neutrophils # 4.03 10^3/uL (1.8-7.7); Neutrophils % 72.9 %; Nucleated Red Blood Cells % 0 %; Platelet Count 215 10^3/cmm (157-399); Red Blood Count 4.11 10^6/uL (3.85-5.65); Red Cell Distribution Width 13.2 % (12.1-15.1); White Blood Count 5.53 10^3/uL (3.29-11.43)
[2023-06-02 14:03] LABS: Alanine Aminotransferase 15 U/L (0-41); Albumin Level 3.7 g/dL (3.5-5.2); Alkaline Phosphatase 77 U/L (40-130); Anion Gap 13.7 (5-19); Aspartate Amino Transferase 12 U/L (0-40); Blood Urea Nitrogen 15 mg/dL (8-23); Calcium 8.7 mg/dL (8.5-10.5); Carbon Dioxide 28 mmol/L (22-29); Chloride 101 mmol/L (98-107); Globulin 3.1 g/dL (1.3-4.6); Glomerular Filtration Rate 98.6 mL/min (90-130); Glucose 96 mg/dL (65-115); Osmolality Calculated 287 mOsm/kg (285-295); Potassium 4.7 mmol/L (3.5-5.1); Sodium 138 mmol/L (136-145); Total Bilirubin 0.4 mg/dL (0.15-1.2); Total Protein 6.8 g/dL (6.6-8.7)
== END 2023-06-07 23:59 | disposition home or self-care (01) ==
PROVIDERS: PCP Family Medicine; Visit Provider Internal Medicine Medical Oncology
DX: C09.8 Malignant neoplasm of overlapping sites of tonsil (principal)
CPT/HCPCS: 36591; 80053; 85025; 96360; J1642; J7030

== ENCOUNTER 2023-06-16 09:02 | Oncology outpatient (recurring) (ONCR) | payer BC, SELFPAY ==
[2023-06-16 09:55] VITALS: BP 104/60; PULSE 82; RESP 17; TEMP 37; O2SAT 94; BMI 24.7
[2023-06-16 10:15] LABS: Basophils % 0.2 %; Hematocrit 38.7 % (37-53); Lymphocytes # 0.6 10^3/uL (0.8-4.8); Lymphocytes % 9.8 %; Mean Corpuscular HGB Conc 32.3 g/dL (30-55); Mean Corpuscular Hemoglobin 29.1 pg (27-33); Monocytes # 0.3 10^3/uL (0.2-0.9); Monocytes % 5.6 %; Neutrophils # 5.14 10^3/uL (1.8-7.7); Neutrophils % 84.1 %; Nucleated Red Blood Cells % 0 %; Platelet Count 332 10^3/cmm (157-399); Red Cell Distribution Width 14.6 % (12.1-15.1); White Blood Count 6.11 10^3/uL (3.29-11.43)
[2023-06-16 10:46] LABS: Alanine Aminotransferase 10 U/L (0-41); Albumin Level 3.5 g/dL (3.5-5.2); Alkaline Phosphatase 71 U/L (40-130); Aspartate Amino Transferase 14 U/L (0-40); Blood Urea Nitrogen 15 mg/dL (8-23); Calcium 8.7 mg/dL (8.5-10.5); Carbon Dioxide 30 mmol/L (22-29); Chloride 97 mmol/L (98-107); Glomerular Filtration Rate 98.6 mL/min (90-130); Glucose 219 mg/dL (65-115); Osmolality Calculated 286 mOsm/kg (285-295); Sodium 134 mmol/L (136-145); Thyroid Stimulating Hormone 5.75 uIU/mL (0.27-4.20); Total Bilirubin 0.2 mg/dL (0.15-1.2); Total Protein 6.5 g/dL (6.6-8.7)
[2023-06-16] MEDS: OLANZapine 5 mg TABLET PO (11:32)
[2023-06-16] MEDS: acetaminophen 325 mg Tablet 650 MG PO (11:32)
[2023-06-16] MEDS: sodium chloride 0.9% 250 ML 75 ML IV (11:33)
[2023-06-16] MEDS: diphenhydrAMINE 50 mg/mL SDV 1mL 25 MG IVP (11:37)
[2023-06-16] MEDS: famotidine 20 mg/2 mL INJ IVP (11:42)
[2023-06-16] MEDS: palonosetron 0.25 mg/5 mL SDV IVP (11:47)
[2023-06-16] MEDS: fosaprepitant 150 MG in sodium chloride 0.9% 150 ML 300 MG IV (12:10)
[2023-06-16] MEDS: pembrolizumab 200 MG in sodium chloride 0.9% 250 ML 516 MG IV (12:49)
[2023-06-16 16:19] VITALS: BP 126/81; PULSE 77
== END 2023-06-16 23:59 | disposition home or self-care (01) ==
PROVIDERS: PCP Family Medicine; Visit Provider Internal Medicine Medical Oncology
DX: C09.8 Malignant neoplasm of overlapping sites of tonsil (principal); Z79.899 Other long term (current) drug therapy; Z51.11 Encounter for antineoplastic chemotherapy
CPT/HCPCS: 80053; 84443; 85025; 96367; 96375; 96413; 96417; J1100; J1200; J1453; J1642; J2469; J3490; J7040; J7050; J9045; J9171; J9271

== ENCOUNTER 2023-07-07 08:53 | Oncology outpatient (recurring) (ONCR) | payer BC, SELFPAY ==
[2023-07-07 09:26] LABS: Basophils % 0.3 %; Hematocrit 35.4 % (37-53); Lymphocytes # 0.4 10^3/uL (0.8-4.8); Lymphocytes % 5.8 %; Mean Corpuscular HGB Conc 33.1 g/dL (30-55); Mean Corpuscular Hemoglobin 29.9 pg (27-33); Mean Corpuscular Volume 90.5 fl (82-101); Mean Platelet Volume 8.8 fL (7.4-10.4); Monocytes # 0.1 10^3/uL (0.2-0.9); Monocytes % 2.1 %; Neutrophils % 91.1 %; Nucleated Red Blood Cells % 0 %; Platelet Count 163 10^3/cmm (157-399); Red Blood Count 3.91 10^6/uL (3.85-5.65); Red Cell Distribution Width 14.9 % (12.1-15.1)
[2023-07-07 09:55] LABS: Alanine Aminotransferase 11 U/L (0-41); Alkaline Phosphatase 78 U/L (40-130); Anion Gap 15.8 (5-19); Aspartate Amino Transferase 12 U/L (0-40); Blood Urea Nitrogen 20 mg/dL (8-23); Calcium 9.5 mg/dL (8.5-10.5); Carbon Dioxide 27 mmol/L (22-29); Chloride 96 mmol/L (98-107); Globulin 3.1 g/dL (1.3-4.6); Glucose 244 mg/dL (65-115); Osmolality Calculated 289 mOsm/kg (285-295); Potassium 4.8 mmol/L (3.5-5.1); Sodium 134 mmol/L (136-145); Thyroid Stimulating Hormone 2.12 uIU/mL (0.27-4.20); Total Bilirubin 0.2 mg/dL (0.15-1.2); Total Protein 7.1 g/dL (6.6-8.7)
[2023-07-07] MEDS: sodium chloride 0.9% 250 ML 75 ML IV (11:19)
[2023-07-07] MEDS: OLANZapine 5 mg TABLET PO (11:23)
[2023-07-07] MEDS: acetaminophen 325 mg Tablet 650 MG PO (11:23)
[2023-07-07] MEDS: diphenhydrAMINE 50 mg/mL SDV 1mL 25 MG IVP (11:25)
[2023-07-07] MEDS: famotidine 20 mg/2 mL INJ IVP (11:27)
[2023-07-07] MEDS: palonosetron 0.25 mg/5 mL SDV IVP (11:29)
[2023-07-07] MEDS: fosaprepitant 150 MG in sodium chloride 0.9% 150 ML 300 MG IV (11:54)
[2023-07-07] MEDS: pembrolizumab 200 MG in sodium chloride 0.9% 250 ML 516 MG IV (12:57)
[2023-07-07] MEDS: CARBOplatin 750 MG in sodium chloride 0.9% 500 ML 575 MG IV (14:58)
[2023-07-07 16:30] VITALS: BP 125/76; PULSE 75; RESP 16; O2SAT 96
== END 2023-07-07 23:59 | disposition home or self-care (01) ==
PROVIDERS: PCP Family Medicine; Visit Provider Internal Medicine Medical Oncology
DX: C09.8 Malignant neoplasm of overlapping sites of tonsil (principal); Z79.899 Other long term (current) drug therapy; Z51.11 Encounter for antineoplastic chemotherapy
CPT/HCPCS: 80053; 84443; 85025; 96367; 96375; 96413; 96417; J1100; J1200; J1453; J1642; J2469; J3490; J7040; J7050; J9045; J9171; J9271

== ENCOUNTER 2023-07-17 14:28 | Outpatient (CLI) | payer BC, SELFPAY ==
--- NOTE | 2023-07-17 15:00 | CT_ITS ---
WS: [id number] CT NECK TECHNIQUE: Contrast-enhanced CT of the neck with coronal and sagittal reformatted images. CLINICAL INFORMATION: surveillance COMPARISON: CT 05/28/2023 and MRI 03/26/2023 DLP: 231.[address] scans at [facility] use at least one of these dose optimization techniques: automated e xposure control; mA and/or kV adjustment per patient size (includes targeted exams where dose is matc hed to clinical indication); or iterative reconstruction. FINDINGS: Postoperative changes bilateral neck dissection Postoperative asymmetry involving the tongue base. RIGHT ICA appears occluded or ligated unchanged fr om previous. Heterogeneous soft tissue thickening with small blush of enhancement involving RIGHT retropharyngeal space. This may be postoperative or related to treatment-related changes and is unchanged from previo us. Consider PET/CT to evaluate for active disease. Treatment related changes in the neck bilaterally with thickening of the platysma. Ballooning of the RIGHT laryngeal ventricle suspicious for RIGHT vocal cord paralysis with rotation R IGHT arytenoid unchanged. A few partially visualized small opacities in the lung apices. This is inde terminate and recommend chest CT in further evaluation. Several normal size lymph nodes at the thorac ic inlet largest measuring approximately 8 mm appear relatively stable from previous. Parotid glands are normal. Submandibular glands have been resected. LEFT carotid is patent. Mild muco kita thickening in the RIGHT greater than LEFT maxillary sinus. Mastoid air cells are well aerated. IMPRESSION: 1. Prior postoperative changes bilateral neck dissection. 2. Heterogeneous soft tissue thickening involving the RIGHT retropharyngeal space with a small blush of enhancement is unchanged compared to previous. Consider FDG-PET to evaluate for active disease in this location. 3. Occlusion or ligation of the RIGHT ICA. LEFT ICA is patent. 4. Unchanged ballooning of the RIGHT laryngeal ventricle compatible with RIGHT vocal cord paralysis. 5. A few partially visualized small opacities in the lung apices. This is indeterminate and recommen d chest CT in further evaluation.
[2023-07-17] MEDS: iohexol 350 mg/mL 500 mL Btl (per mL) IV (15:08)
== END 2023-07-17 14:29 | disposition home or self-care (01) ==
LOC: RAD 14:29
PROVIDERS: PCP Family Medicine; Visit Provider Nurse Practitioner Family
DX: C09.8 Malignant neoplasm of overlapping sites of tonsil (principal); Z90.09 Acquired absence of other part of head and neck; R93.89 Abnormal findings on diagnostic imaging of other specified body structures; J38.7 Other diseases of larynx; R91.8 Other nonspecific abnormal finding of lung field
CPT/HCPCS: 70491; Q9967

== ENCOUNTER 2023-07-28 07:41 | Oncology outpatient (recurring) (ONCR) | payer BC, SELFPAY ==
[2023-07-15 12:10] VITALS: BP 91/61; PULSE 83; RESP 17; TEMP 36.3; O2SAT 96
[2023-07-15] MEDS: sodium chloride 0.9% 1,000 ML 700 ML IV (12:12)
[2023-07-15 12:15] LABS: Basophils % 0.8 %; Hematocrit 33.4 % (37-53); Lymphocytes # 0.5 10^3/uL (0.8-4.8); Lymphocytes % 41.6 %; Mean Corpuscular HGB Conc 34.1 g/dL (30-55); Mean Corpuscular Hemoglobin 29.8 pg (27-33); Mean Corpuscular Volume 87.2 fl (82-101); Mean Platelet Volume 9.2 fL (7.4-10.4); Monocytes # 0.5 10^3/uL (0.2-0.9); Monocytes % 36.8 %; Nucleated Red Blood Cells % 0 %; Platelet Count 201 10^3/cmm (157-399); Red Blood Count 3.83 10^6/uL (3.85-5.65); Red Cell Distribution Width 14.5 % (12.1-15.1); White Blood Count 1.25 10^3/uL (3.29-11.43)
[2023-07-15 12:35] LABS: Alanine Aminotransferase 26 U/L (0-41); Albumin Level 3.8 g/dL (3.5-5.2); Alkaline Phosphatase 74 U/L (40-130); Anion Gap 15.8 (5-19); Aspartate Amino Transferase 15 U/L (0-40); Blood Urea Nitrogen 21 mg/dL (8-23); Calcium 8.6 mg/dL (8.5-10.5); Carbon Dioxide 27 mmol/L (22-29); Chloride 92 mmol/L (98-107); Globulin 2.8 g/dL (1.3-4.6); Glomerular Filtration Rate 98.6 mL/min (90-130); Glucose 124 mg/dL (65-115); Osmolality Calculated 276 mOsm/kg (285-295); Potassium 3.8 mmol/L (3.5-5.1); Sodium 131 mmol/L (136-145); Total Bilirubin 1.2 mg/dL (0.15-1.2); Total Protein 6.6 g/dL (6.6-8.7)
[2023-07-15 12:40] LABS: Neutrophils # 0.25 10^3/uL (1.8-7.7)
[2023-07-15 12:42] LABS: Slide Review Slide Review Perform
[2023-07-15] MEDS: filgrastim-sndz 480 mcg/0.8 mL Syringe SUBCUT (14:02)
[2023-07-15 14:15] VITALS: BP 89/61; PULSE 87; RESP 18; TEMP 36.1; O2SAT 95
[2023-07-16] MEDS: sodium chloride 0.9% 1,000 ML 999 ML IV (13:57)
[2023-07-16] MEDS: filgrastim-sndz 480 mcg/0.8 mL Syringe SUBCUT (14:02)
[2023-07-17] MEDS: folic acid 1 MG, multivitamin inj 10 ML, thiamine 100 MG in sodium chloride 0.9% 1,000 ML 252.8 MG IV (10:19)
[2023-07-17] MEDS: filgrastim-sndz 480 mcg/0.8 mL Syringe SUBCUT (14:22)
[2023-07-17 14:30] VITALS: BP 110/75; PULSE 68; RESP 18; TEMP 36.2; O2SAT 97
[2023-07-28 07:52] VITALS: BP 100/65; PULSE 94; RESP 16; TEMP 36.1; O2SAT 94
[2023-07-28 08:08] LABS: Basophils % 0.3 %; Hematocrit 28.9 % (37-53); Lymphocytes # 0.4 10^3/uL (0.8-4.8); Lymphocytes % 6.9 %; Mean Corpuscular HGB Conc 33.2 g/dL (30-55); Mean Corpuscular Hemoglobin 30.9 pg (27-33); Mean Corpuscular Volume 92.9 fl (82-101); Mean Platelet Volume 9.2 fL (7.4-10.4); Monocytes # 0.3 10^3/uL (0.2-0.9); Monocytes % 4.4 %; Neutrophils # 5.64 10^3/uL (1.8-7.7); Neutrophils % 87.9 %; Nucleated Red Blood Cells % 0 %; Platelet Count 170 10^3/cmm (157-399); Red Blood Count 3.11 10^6/uL (3.85-5.65); Red Cell Distribution Width 17.1 % (12.1-15.1); White Blood Count 6.41 10^3/uL (3.29-11.43)
[2023-07-28 08:39] LABS: Alanine Aminotransferase 13 U/L (0-41); Albumin Level 3.6 g/dL (3.5-5.2); Alkaline Phosphatase 69 U/L (40-130); Anion Gap 17.4 (5-19); Aspartate Amino Transferase 23 U/L (0-40); Blood Urea Nitrogen 22 mg/dL (8-23); Calcium 9.3 mg/dL (8.5-10.5); Carbon Dioxide 26 mmol/L (22-29); Chloride 94 mmol/L (98-107); Globulin 3.1 g/dL (1.3-4.6); Glomerular Filtration Rate 98.3 mL/min (90-130); Glucose 195 mg/dL (65-115); Osmolality Calculated 285 mOsm/kg (285-295); Potassium 4.4 mmol/L (3.5-5.1); Sodium 133 mmol/L (136-145); Thyroid Stimulating Hormone 4.76 uIU/mL (0.27-4.20); Total Bilirubin 0.3 mg/dL (0.15-1.2); Total Protein 6.7 g/dL (6.6-8.7)
[2023-07-28] MEDS: pembrolizumab 200 MG in sodium chloride 0.9% 250 ML 516 MG IV (09:52)
== END 2023-07-28 23:59 | disposition home or self-care (01) ==
PROVIDERS: Nurse Practitioner Family; PCP Family Medicine; Visit Provider Internal Medicine Medical Oncology
DX: Z51.11 Encounter for antineoplastic chemotherapy (principal); C09.8 Malignant neoplasm of overlapping sites of tonsil; D70.1 Agranulocytosis secondary to cancer chemotherapy; Z79.899 Other long term (current) drug therapy; Z51.12 Encounter for antineoplastic immunotherapy
CPT/HCPCS: 70491; 80053; 84443; 85025; 96365; 96366; 96372; 96413; J1642; J3411; J3490; J7030; J7050; J9271; Q5101; Q9967

== ENCOUNTER 2023-08-06 10:59 | Oncology outpatient (recurring) (ONCR) | payer BC, SELFPAY ==
[2023-08-06 11:29] VITALS: BP 101/70; PULSE 92; RESP 20; TEMP 36.6; O2SAT 93
[2023-08-06] MEDS: sodium chloride 0.9% 1,000 ML 999 ML IV (11:40)
== END 2023-08-07 23:59 | disposition home or self-care (01) ==
PROVIDERS: PCP Family Medicine; Visit Provider Internal Medicine Medical Oncology
DX: Z53.9 Procedure and treatment not carried out, unspecified reason (principal); C09.8 Malignant neoplasm of overlapping sites of tonsil; D70.1 Agranulocytosis secondary to cancer chemotherapy; Z95.828 Presence of other vascular implants and grafts
CPT/HCPCS: 96365; J7030

== ENCOUNTER 2023-08-18 07:50 | Oncology outpatient (recurring) (ONCR) | payer BC, SELFPAY ==
[2023-08-18 07:55] VITALS: BP 122/81; PULSE 90; RESP 16; TEMP 36.2; O2SAT 91
[2023-08-18 08:14] LABS: Basophils # 0.1 10^3/uL (0.0-0.1); Basophils % 0.7 %; Eosinophils # 0.3 10^3/uL (0.0-0.8); Eosinophils % 4.3 %; Hematocrit 33.1 % (37-53); Lymphocytes # 1.1 10^3/uL (0.8-4.8); Lymphocytes % 16.9 %; Mean Corpuscular HGB Conc 31.7 g/dL (30-55); Mean Corpuscular Hemoglobin 30.4 pg (27-33); Mean Corpuscular Volume 95.9 fl (82-101); Mean Platelet Volume 7.9 fL (7.4-10.4); Monocytes # 0.6 10^3/uL (0.2-0.9); Monocytes % 8.2 %; Neutrophils # 4.68 10^3/uL (1.8-7.7); Neutrophils % 69.6 %; Nucleated Red Blood Cells % 0 %; Platelet Count 301 10^3/cmm (157-399); Red Blood Count 3.45 10^6/uL (3.85-5.65); Red Cell Distribution Width 16.9 % (12.1-15.1); White Blood Count 6.73 10^3/uL (3.29-11.43)
[2023-08-18 08:47] LABS: Alanine Aminotransferase 7 U/L (0-41); Albumin Level 3.5 g/dL (3.5-5.2); Alkaline Phosphatase 68 U/L (40-130); Anion Gap 13.1 (5-19); Aspartate Amino Transferase 13 U/L (0-40); Blood Urea Nitrogen 11 mg/dL (8-23); Calcium 8.7 mg/dL (8.5-10.5); Carbon Dioxide 28 mmol/L (22-29); Chloride 99 mmol/L (98-107); Globulin 3.4 g/dL (1.3-4.6); Glomerular Filtration Rate 98.3 mL/min (90-130); Glucose 137 mg/dL (65-115); Osmolality Calculated 284 mOsm/kg (285-295); Potassium 4.1 mmol/L (3.5-5.1); Sodium 136 mmol/L (136-145); Thyroid Stimulating Hormone 32.21 uIU/mL (0.27-4.20); Total Bilirubin 0.5 mg/dL (0.15-1.2); Total Protein 6.9 g/dL (6.6-8.7)
[2023-08-18] MEDS: pembrolizumab 200 MG in sodium chloride 0.9% 250 ML 516 MG IV (10:41)
== END 2023-08-18 23:59 | disposition home or self-care (01) ==
PROVIDERS: PCP Family Medicine; Visit Provider Internal Medicine Medical Oncology
DX: Z76.89 Persons encountering health services in other specified circumstances (principal); C09.8 Malignant neoplasm of overlapping sites of tonsil; D70.1 Agranulocytosis secondary to cancer chemotherapy; Z95.828 Presence of other vascular implants and grafts; Z79.899 Other long term (current) drug therapy; Z51.12 Encounter for antineoplastic immunotherapy; E03.9 Hypothyroidism, unspecified
CPT/HCPCS: 80053; 84443; 85025; 96413; J1642; J7050; J9271

== ENCOUNTER 2023-08-19 10:58 | Outpatient (CLI) | payer BC, SELFPAY ==
--- NOTE | 2023-08-19 14:20 | OP.DCCON ---
Reason for Visit: 25649 C09.8 Person Interviewed: Patient Height: 6 ft 1 in Weight: 182 lb BMI: 24.1 kg/m2 UBW: Tk said that he weighed 263 lbs in February of 2023. Weight History: Since February of 2023, Tk has lost 81 lbs or 31% of UBW in 6 mos which is severe wt loss. Concerns and Goals: The formula, [employer] 1.4 Plain, was giving Tk an upset stomach, emesis at times, diarrhea and gas. He has been buying Boost Plus chocolate and it hasn't caused any GI issues. GI Symptoms: Nausea, Vomiting, Abdominal Pain, Constipation and Diarrhea Other Feeding Issues: Tk has a PEG tube, but is able to and prefers drinking the Boost Plus supplements. He said he does put water through his PEG tube, but if it is anything thick it won't go through. Food Allergies and Sensitivities: None other then [employer] at this time. 24 Hour Recall: Breakfast Time: Snack Time: Lunch Time: Snack Time: Dinner Time: Snack Time: Additional Comments: [employer], his insurance company, needed a note from a dietitian to change his formula from [employer] 1.4 to Boost Plus. I called and spoke with a pharmacist, Bobby, who said there are supply chain issues with Boost Plus, but he would change it to that. He recommended having additional choices and we decided on Nutren 1.5, Jevity 1.5, and Isosource 1.5 as other possible supplements when they cannot get Boost Plus chocolate flavor. Typically he sends a 2-3 week supply and Tk thought that was enough time to figure out if it agreed with him or not. I faxed the recommendation, and then I faxed it again with options when they are unable to find Boost Plus. Recommendations: Assessment: Tk would like Josie to switch his formula from [employer] to Boost Plus chocolate flavor. Diagnosis: Evidence of protein calorie malnutrition r/t chronic illness (cancer) AEB severe wt loss in past 6 mos and eating <75% of estimated energy requirement. Intervention: Talked with Bobby, a pharmacist with [employer], who recommended I fax my recommendations to him @ [phone]. My recommendation was for 8 cartons a day of Boost Plus (chocolate flavor) using the following regimen: 2 cartons each @ 8am/ noon/ 4pm/ 8pm. The regimen can be tweaked to fit Tk's schedule. Tk said he has 3 x 20 ounces water each day through gravity feed in his PEG tube. Monitoring and Evaluation: 8 cartons Boost Plus a day provides: 2880 kcals or 99% Pt's estimated calorie needs (which are 9941-1808 kcals or 35 to 40 kcals/kg) and 112 grams protein or 90% Pt's estimated protein needs (which are 100-125 grams protein or1.2 to 1.5 g/kg IBW). Please call [phone] ext [phone] or email [email or web address] if I can help in any way in the future. Coding Level of Care Code Nutrition/Individ/Init 15 min Time Spent (min) 20
== END 2023-08-19 10:59 | disposition home or self-care (01) ==
LOC: DIET 10:59
PROVIDERS: PCP Family Medicine; Visit Provider Internal Medicine Medical Oncology
DX: C09.8 Malignant neoplasm of overlapping sites of tonsil (principal); Z93.1 Gastrostomy status; R63.4 Abnormal weight loss; Z68.24 Body mass index [BMI] 24.0-24.9, adult; E46 Unspecified protein-calorie malnutrition
CPT/HCPCS: 97802

== ENCOUNTER 2023-09-09 07:44 | Oncology outpatient (recurring) (ONCR) | payer BC, SELFPAY ==
[2023-09-09 08:05] VITALS: BP 123/76; PULSE 91; RESP 16; TEMP 36.9; O2SAT 95
[2023-09-09 08:16] LABS: Basophils % 0.3 %; Eosinophils # 0.3 10^3/uL (0.0-0.8); Eosinophils % 3.9 %; Hematocrit 33.4 % (37-53); Lymphocytes # 1.2 10^3/uL (0.8-4.8); Lymphocytes % 13.5 %; Mean Corpuscular HGB Conc 32.3 g/dL (30-55); Mean Platelet Volume 8.5 fL (7.4-10.4); Monocytes # 0.7 10^3/uL (0.2-0.9); Monocytes % 7.9 %; Neutrophils # 6.45 10^3/uL (1.8-7.7); Neutrophils % 74.1 %; Nucleated Red Blood Cells % 0 %; Platelet Count 238 10^3/cmm (157-399); Red Blood Count 3.48 10^6/uL (3.85-5.65); Red Cell Distribution Width 14.3 % (12.1-15.1); White Blood Count 8.72 10^3/uL (3.29-11.43)
[2023-09-09 08:53] LABS: Alanine Aminotransferase 7 U/L (0-41); Albumin Level 3.6 g/dL (3.5-5.2); Alkaline Phosphatase 66 U/L (40-130); Aspartate Amino Transferase 11 U/L (0-40); Blood Urea Nitrogen 21 mg/dL (8-23); Calcium 9.1 mg/dL (8.5-10.5); Carbon Dioxide 28 mmol/L (22-29); Chloride 100 mmol/L (98-107); Globulin 3.7 g/dL (1.3-4.6); Glomerular Filtration Rate 98.3 mL/min (90-130); Glucose 124 mg/dL (65-115); Osmolality Calculated 292 mOsm/kg (285-295); Sodium 139 mmol/L (136-145); Thyroid Stimulating Hormone 0.24 uIU/mL (0.27-4.20); Total Bilirubin 0.4 mg/dL (0.15-1.2); Total Protein 7.3 g/dL (6.6-8.7)
[2023-09-09] MEDS: pembrolizumab 200 MG in sodium chloride 0.9% 250 ML 516 MG IV (09:53)
[2023-09-09 10:46] VITALS: BP 96/64; PULSE 92; RESP 17; TEMP 36.1; O2SAT 96
== END 2023-09-09 23:59 | disposition home or self-care (01) ==
PROVIDERS: Nurse Practitioner Family; PCP Family Medicine; Visit Provider Internal Medicine Medical Oncology
DX: Z51.11 Encounter for antineoplastic chemotherapy (principal); C09.8 Malignant neoplasm of overlapping sites of tonsil; D70.1 Agranulocytosis secondary to cancer chemotherapy; Z95.828 Presence of other vascular implants and grafts
CPT/HCPCS: 80053; 84443; 85025; 96413; J1642; J7050; J9271

== ENCOUNTER 2023-09-30 07:58 | Oncology outpatient (recurring) (ONCR) | payer BC, SELFPAY ==
[2023-09-30 08:19] VITALS: BMI 22.9
[2023-09-30 08:20] VITALS: BP 91/62; PULSE 105; RESP 18; TEMP 36.9; O2SAT 97
[2023-09-30 08:46] LABS: Basophils # 0.1 10^3/uL (0.0-0.1); Eosinophils # 0.6 10^3/uL (0.0-0.8); Eosinophils % 8.2 %; Hematocrit 39.2 % (37-53); Lymphocytes # 1.1 10^3/uL (0.8-4.8); Lymphocytes % 14.9 %; Mean Corpuscular HGB Conc 32.1 g/dL (30-55); Mean Corpuscular Volume 93.3 fl (82-101); Mean Platelet Volume 8.5 fL (7.4-10.4); Monocytes # 0.5 10^3/uL (0.2-0.9); Monocytes % 7.2 %; Neutrophils # 4.86 10^3/uL (1.8-7.7); Neutrophils % 68.4 %; Nucleated Red Blood Cells % 0 %; Platelet Count 290 10^3/cmm (157-399); Red Cell Distribution Width 13.2 % (12.1-15.1)
[2023-09-30 09:04] LABS: Alanine Aminotransferase 10 U/L (0-41); Albumin Level 3.8 g/dL (3.5-5.2); Alkaline Phosphatase 73 U/L (40-130); Aspartate Amino Transferase 13 U/L (0-40); Blood Urea Nitrogen 15 mg/dL (8-23); Calcium 9.7 mg/dL (8.5-10.5); Carbon Dioxide 28 mmol/L (22-29); Chloride 97 mmol/L (98-107); Globulin 3.7 g/dL (1.3-4.6); Glomerular Filtration Rate 98.3 mL/min (90-130); Glucose 149 mg/dL (65-115); Osmolality Calculated 286 mOsm/kg (285-295); Sodium 136 mmol/L (136-145); Thyroid Stimulating Hormone 2.44 uIU/mL (0.27-4.20); Total Bilirubin 0.6 mg/dL (0.15-1.2); Total Protein 7.5 g/dL (6.6-8.7)
[2023-09-30] MEDS: pembrolizumab 200 MG in sodium chloride 0.9% 250 ML 516 MG IV (10:19)
[2023-09-30 10:59] VITALS: BP 111/77; PULSE 92; RESP 16; TEMP 37; O2SAT 92
== END 2023-09-30 23:59 | disposition home or self-care (01) ==
PROVIDERS: Nurse Practitioner Family; PCP Family Medicine; Visit Provider Internal Medicine Medical Oncology
DX: Z51.11 Encounter for antineoplastic chemotherapy (principal); C09.8 Malignant neoplasm of overlapping sites of tonsil; D70.1 Agranulocytosis secondary to cancer chemotherapy; Z95.828 Presence of other vascular implants and grafts; Z79.899 Other long term (current) drug therapy
CPT/HCPCS: 80053; 84443; 85025; 96413; J1642; J7050; J9271

== ENCOUNTER 2023-10-10 16:14 | Outpatient (CLI) | payer BC, SELFPAY ==
--- NOTE | 2023-10-10 16:18 | CTR_ITS ---
PROCEDURE INFORMATION: Exam: CT Neck With Contrast Exam date and time: 10/10/2023 4:29 PM Age: 63 years old Clinical indication: Condition or disease; Other: Malignant neoplasm of overlapping sites of tonsil; Prior surgery; Surgery date: 6+ months; Surgery type: Throat TECHNIQUE: Imaging protocol: Computed tomography of the neck with contrast. Radiation optimization: All CT scans at this facility use at least one of these dose optimization techniques: automated exposure control; mA and/or kV adjustment per patient size (includes targeted exams where dose is matched to clinical indication); or iterative reconstruction. Contrast material: OMNI 350; Contrast volume: 80 ml; Contrast route: INTRAVENOUS (IV); COMPARISON: CT neck w con* [id number] 07/17/2023 3:03 PM RADIATION DOSE METRICS: Total DLP (mGy-cm): 254.66 FINDINGS: Pharynx: See Soft tissues finding. Larynx: Unremarkable. Epiglottis is normal. Prevertebral and retropharyngeal spaces: Unremarkable. Salivary glands: Normal. Glands are normal in size. Thyroid: Normal. No enlarged or calcified nodules. Lymph nodes: Unremarkable. No lymphadenopathy. Trachea: Visualized trachea is unremarkable. Lungs: There is nodular infiltrate in the right lung apex. Bones/joints: Unremarkable. No acute fracture. Vasculature: There is occlusion involving the right internal carotid artery. Soft tissues: There is a rounded area of poorly defined soft tissue mass effect in the right upper neck. This area lies just above the tonsillar bed at the level of the C1-C2 joint. This mass effect has increased in size over the past few months. CT/CT neck w con* [id number] IMPRESSION: 1. An area of mass effect in the right upper neck appears to have enlarged since 07/17/2023 2. Chronic right ICA occlusion
[2023-10-10] MEDS: iohexol 350 mg/mL 500 mL Btl (per mL) IV (16:31)
== END 2023-10-10 16:15 | disposition home or self-care (01) ==
LOC: RAD 16:14
PROVIDERS: PCP Family Medicine; Visit Provider Internal Medicine
DX: C09.8 Malignant neoplasm of overlapping sites of tonsil (principal); R22.1 Localized swelling, mass and lump, neck; I65.21 Occlusion and stenosis of right carotid artery
CPT/HCPCS: 70491; Q9967

== ENCOUNTER 2023-10-13 15:35 | Outpatient (CLI) | payer BC, SELFPAY ==
--- NOTE | 2023-10-13 16:00 | CTR_ITS ---
PROCEDURE INFORMATION: Exam: CT Chest With Contrast; Diagnostic Exam date and time: 10/13/2023 4:56 PM Age: 63 years old Clinical indication: Condition or disease; Other: Restaging; Other: Thoat cancer follow up; Prior surgery; Surgery date: 6+ months; Surgery type: Throat TECHNIQUE: Imaging protocol: Diagnostic computed tomography of the chest with contrast. Radiation optimization: All CT scans at this facility use at least one of these dose optimization techniques: automated exposure control; mA and/or kV adjustment per patient size (includes targeted exams where dose is matched to clinical indication); or iterative reconstruction. Contrast material: [id number]; Contrast volume: 3 ml; Contrast route: INTRAVENOUS (IV); COMPARISON: CR XR chest 1V portable [id number] 05/14/2023 4:16 PM RADIATION DOSE METRICS: Total DLP (mGy-cm): 696.62 FINDINGS: Lungs: Multifocal nodular ground-glass opacities worst in the right upper lobe. Peribronchial thickening. Pleural spaces: No pneumothorax or pleural effusion. Heart: No significant coronary calcifications. No pericardial effusion. Lymph nodes: No enlarged lymph nodes. Vasculature: No aortic aneurysm. Bones/joints: No acute findings Soft tissues: No acute findings. PROCEDURE INFORMATION: Exam: CT Abdomen And Pelvis With Contrast Exam date and time: 10/13/2023 4:56 PM Age: 63 years old Clinical indication: Condition or disease; Other: Restaging; Other: Thoat cancer follow up; Prior surgery; Surgery date: 6+ months; Surgery type: Throat TECHNIQUE: Imaging protocol: Computed tomography of the abdomen and pelvis with contrast. Radiation optimization: All CT scans at this facility use at least one of these dose optimization techniques: automated exposure control; mA and/or kV adjustment per patient size (includes targeted exams where dose is matched to clinical indication); or iterative reconstruction. Contrast material: [id number]; Contrast volume: 3 ml; Contrast route: INTRAVENOUS (IV); COMPARISON: CR XR chest 1V portable [id number] 05/14/2023 4:16 PM RADIATION DOSE METRICS: Total DLP (mGy-cm): 696.62 FINDINGS: Liver: 2.3 cm central hepatic simple cyst and other tiny subcentimeter hypodensities which are too small to definitively characterize but appear similar and are likely cysts as well. Gallbladder and bile ducts: No acute findings. Pancreas: No ductal dilation. Spleen: No splenomegaly. Adrenal glands: Tiny 8 mm left adrenal nodule series 5, image 19 too small to characterize. Kidneys and ureters: No stones or hydronephrosis. Stomach and bowel: No obstruction. Appendix: No evidence of appendicitis. Intraperitoneal space: No free air. No significant fluid collection. Vasculature: No abdominal aortic aneurysm. Lymph nodes: No enlarged lymph nodes. Urinary bladder: No acute findings. Reproductive: No acute findings. Bones/joints: No acute findings. Soft tissues: No acute findings. CT/CT chest abdpel w/*[id number] IMPRESSION: Multifocal nodular ground-glass opacities likely infectious/inflammatory. Recommend short-term follow-up to ensure resolution encase these findings obscure underlying suspicious nodule. IMPRESSION: No evidence of intra-abdominal metastasis. Tiny 8 mm left adrenal nodules too small to definitively characterize. Attention on follow-up recommended to ensure stability.
[2023-10-13] MEDS: iohexol 350 mg/mL 500 mL Btl (per mL) PO (16:27)
[2023-10-13] MEDS: iohexol 350 mg/mL 500 mL Btl (per mL) IV (16:59)
== END 2023-10-13 15:36 | disposition home or self-care (01) ==
LOC: RAD 15:35
PROVIDERS: PCP Family Medicine; Visit Provider Internal Medicine
DX: C09.8 Malignant neoplasm of overlapping sites of tonsil (principal); R91.8 Other nonspecific abnormal finding of lung field; E27.9 Disorder of adrenal gland, unspecified
CPT/HCPCS: 71260; 74177; Q9967

== ENCOUNTER 2023-10-14 08:22 | Outpatient (CLI) | payer BC, SELFPAY ==
--- NOTE | 2023-10-14 08:30 | PETR_ITS ---
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 Then, PET images were obtained. Attenuation corrected images were constructed using the CT scan. Fused images of PET and CT were reviewed. The standardized uptake values (SUV) reported below are maximum values within a region of interest, expressed in gm/ml. Exam includes orbital meatal line to mid-thigh. Radiopharmaceutical: 12.53 mCi F-18 FDG (Fluorodeoxyglucose), IV. Time of imaging post radiopharmaceutical administration: 1 hour Injection site: Right antecubital COMPARISON: CT chest abdpel w/*[id number] 10/13/2023 4:56 PM, CT neck 10/10/2023 FINDINGS: Tubes, catheters and devices: A left subclavian central venous port catheter terminates in the proximal SVC. A percutaneous gastrostomy tube balloon terminates in the lumen of the stomach. Brain: Visualized brain has normal physiologic uptake. Paranasal sinuses: Non radiotracer avid mild left and moderate right-sided maxillary sinus mucosal thickening is noted consistent with benign sinusitis. Salivary glands: The submandibular glands appear to have been surgically resected. Oral cavity: There is elevated uptake in the anterior tongue without a correlating lesion on the CT images which is likely physiologic in nature. Pharynx: Abnormal uptake is identified within the soft tissues in the posterior nasopharynx extending from the level of C1 to the base of C2, SUV max 12.2. This is in the region of previously noted soft tissue prominence on the CT neck of 10/10/2023. Larynx: No abnormal uptake. Lungs, pleura and trachea: Ill-defined areas of patchy and nodular density in the right upper lobe appear morphologically similar compared with 10/13/2023 and demonstrate elevated activity, SUV max 5.4, greatest in a cluster of solid-appearing nodules in the anterior right upper lobe measuring approximately 1.6 x 1.4 cm on series 3 image 137. Mild dependent streaky density in the lungs is consistent with atelectasis. Heart: Normal physiologic uptake. Mediastinal space: No abnormal uptake. Liver: No abnormal uptake. Numerous rounded low-density lesions in the liver are without elevated uptake measuring up to 2.2 cm in diameter on series 3, image 168. Gallbladder and bile ducts: No abnormal uptake. Pancreas: No abnormal uptake. Spleen: No abnormal uptake. Adrenal glands: A previously noted 8 mm nodule in the left adrenal gland on series 3, image 172 is not radiotracer avid. Unremarkable right adrenal gland. Kidneys and ureters: Normal physiologic uptake. Stomach and bowel: No abnormal uptake. Urinary bladder: Radiodense material consistent with recently administered intravenous contrast material is noted in the lumen of the urinary bladder. Vasculature: Elevated uptake is identified in the right internal carotid artery in the proximal neck, SUV max 6.2. This uptake is in the region of known chronic occlusion noted on the prior CT of 10/10/2023. Diffuse atherosclerotic changes are noted. Lymph nodes: An inferior right paratracheal lymph node measures 1.4 x 0.9 cm on series 3, image 118, SUV max 3.1. Elevated uptake in the right hilar region is noted within an ill-defined lymph node, SUV max 3.6 on series 3, image 127. Bones/joints: No abnormal uptake. Soft tissues: No abnormal uptake in the visualized head, neck, chest, abdomen, pelvis, and extremities. METRICS: Mediastinal blood pool: SUV max 2.1 [facility] [id number] IMPRESSION: 1. Elevated uptake within the superior right neck corresponding to the area of asymmetric soft tissue prominence on the CT of 10/10/2023 is noted (SUV max 12.2) compatible with malignancy. 2. Elevated uptake is identified in the region of the right internal carotid artery in the region of known chronic occlusion. This uptake may be inflammatory in nature. 3. Radiotracer avid mediastinal and right hilar lymph nodes are noted consistent with metastases. 4. Multifocal regions of patchy and nodular density in the right lung are noted in the upper lobes with elevated uptake. While this appearance may be related to atypical infectious involvement, malignancy cannot be entirely excluded. 5. Non radiotracer avid low-density lesions in the liver are present, compatible with benign cysts or hemangiomas. 6. A previously noted small left adrenal nodule is not radiotracer avid favoring a benign etiology. 7. Additional nonurgent findings as detailed above.
== END 2023-10-14 08:23 | disposition home or self-care (01) ==
LOC: RAD 08:22
PROVIDERS: PCP Family Medicine; Visit Provider Internal Medicine Medical Oncology
DX: C09.8 Malignant neoplasm of overlapping sites of tonsil (principal); I65.21 Occlusion and stenosis of right carotid artery; R93.89 Abnormal findings on diagnostic imaging of other specified body structures; R91.8 Other nonspecific abnormal finding of lung field; E27.9 Disorder of adrenal gland, unspecified
CPT/HCPCS: 78815; A9552

== ENCOUNTER 2023-10-21 10:43 | Oncology outpatient (recurring) (ONCR) | payer BC, SELFPAY ==
[2023-10-21 11:05] LABS: Basophils % 0.6 %; Eosinophils # 0.6 10^3/uL (0.0-0.8); Eosinophils % 8.1 %; Hematocrit 39.3 % (37-53); Lymphocytes % 14.3 %; Mean Corpuscular HGB Conc 32.3 g/dL (30-55); Mean Corpuscular Hemoglobin 29.7 pg (27-33); Mean Corpuscular Volume 91.8 fl (82-101); Mean Platelet Volume 8.6 fL (7.4-10.4); Monocytes # 0.5 10^3/uL (0.2-0.9); Neutrophils # 4.66 10^3/uL (1.8-7.7); Neutrophils % 68.9 %; Nucleated Red Blood Cells % 0 %; Platelet Count 257 10^3/cmm (157-399); Red Blood Count 4.28 10^6/uL (3.85-5.65); Red Cell Distribution Width 13.3 % (12.1-15.1); White Blood Count 6.77 10^3/uL (3.29-11.43)
[2023-10-21 11:30] LABS: Alanine Aminotransferase 8 U/L (0-41); Albumin Level 3.7 g/dL (3.5-5.2); Alkaline Phosphatase 64 U/L (40-130); Aspartate Amino Transferase 13 U/L (0-40); Blood Urea Nitrogen 10 mg/dL (8-23); Calcium 8.8 mg/dL (8.5-10.5); Carbon Dioxide 28 mmol/L (22-29); Chloride 97 mmol/L (98-107); Globulin 3.8 g/dL (1.3-4.6); Glomerular Filtration Rate 85.8 mL/min (90-130); Glucose 122 mg/dL (65-115); Osmolality Calculated 282 mOsm/kg (285-295); Sodium 136 mmol/L (136-145); Thyroid Stimulating Hormone 25.63 uIU/mL (0.27-4.20); Total Bilirubin 0.4 mg/dL (0.15-1.2); Total Protein 7.5 g/dL (6.6-8.7)
[2023-10-21] MEDS: pembrolizumab 200 MG in sodium chloride 0.9% 250 ML 516 MG IV (12:47)
[2023-10-21 13:25] VITALS: BP 112/76; PULSE 88; TEMP 36.7; O2SAT 91
== END 2023-10-21 23:59 | disposition home or self-care (01) ==
PROVIDERS: Internal Medicine; PCP Family Medicine; Visit Provider Internal Medicine Medical Oncology
DX: Z53.9 Procedure and treatment not carried out, unspecified reason (principal); C09.8 Malignant neoplasm of overlapping sites of tonsil; Z51.12 Encounter for antineoplastic immunotherapy
CPT/HCPCS: 80053; 84443; 85025; 96413; J1642; J7050; J9271

== ENCOUNTER 2023-11-04 11:22 | Oncology outpatient (recurring) (ONCR) | payer BC, SELFPAY ==
[2023-11-04] MEDS: sodium chloride 0.9% 1,000 ML 999 ML IV (12:50)
[2023-11-04 12:52] LABS: Basophils # 0.1 10^3/uL (0.0-0.1); Basophils % 0.7 %; Eosinophils % 0.4 %; Lymphocytes # 0.8 10^3/uL (0.8-4.8); Lymphocytes % 9.3 %; Mean Corpuscular HGB Conc 33.3 g/dL (30-55); Mean Corpuscular Hemoglobin 28.9 pg (27-33); Mean Corpuscular Volume 86.7 fl (82-101); Mean Platelet Volume 8.4 fL (7.4-10.4); Monocytes # 0.9 10^3/uL (0.2-0.9); Monocytes % 10.4 %; Neutrophils # 7.09 10^3/uL (1.8-7.7); Neutrophils % 78.9 %; Nucleated Red Blood Cells % 0 %; Platelet Count 297 10^3/cmm (157-399); Red Blood Count 4.15 10^6/uL (3.85-5.65)
[2023-11-04 13:14] LABS: Alanine Aminotransferase 7 U/L (0-41); Albumin Level 3.1 g/dL (3.5-5.2); Alkaline Phosphatase 64 U/L (40-130); Anion Gap 15.7 (5-19); Aspartate Amino Transferase 8 U/L (0-40); Blood Urea Nitrogen 15 mg/dL (8-23); Calcium 9.1 mg/dL (8.5-10.5); Carbon Dioxide 27 mmol/L (22-29); Chloride 95 mmol/L (98-107); Creatinine Clr Calc Pharmacy 106.8107; Globulin 4.4 g/dL (1.3-4.6); Glomerular Filtration Rate 98.3 mL/min (90-130); Glucose 117 mg/dL (65-115); Osmolality Calculated 280 mOsm/kg (285-295); Potassium 3.7 mmol/L (3.5-5.1); Sodium 134 mmol/L (136-145); Total Bilirubin 0.3 mg/dL (0.15-1.2); Total Protein 7.5 g/dL (6.6-8.7)
[2023-11-04 13:46] LABS: Slide Review Slide Review Perform
--- NOTE | 2023-11-04 14:11 | XR_ITS ---
WS: [id number] Exam: XR chest 2V* [id number] Date/Time of Exam: 11/04/2023 2:19 PM Reason For Exam: shortness of breath; cough Comparison 05/14/2023. Patchy infiltrates noted throughout the RIGHT lung. There is also infiltrate in the LEFT lower lobe. No pleural effusions or pneumothorax. Normal cardiomediastinal silhouette. A LEFT subclavian port is noted with the tip directed cephalad probably ending in the superior aspect of the SVC. Surgical clip s in the RIGHT and LEFT neck. Bony structures appear normal. IMPRESSION: 1. Infiltrate noted throughout the RIGHT lung and also of the LEFT lower lobe suggesting pneumonia. S ignificant change since last exam.
== END 2023-11-06 23:59 | disposition home or self-care (01) ==
PROVIDERS: PCP Family Medicine; Visit Provider Internal Medicine Medical Oncology
DX: Z53.9 Procedure and treatment not carried out, unspecified reason (principal); C09.8 Malignant neoplasm of overlapping sites of tonsil; D70.1 Agranulocytosis secondary to cancer chemotherapy; Z95.828 Presence of other vascular implants and grafts
CPT/HCPCS: 71046; 80053; 85025; 96360; J1642; J7030

== ENCOUNTER 2023-11-10 15:47 | Inpatient (IN) | payer BC, SELFPAY ==
[2023-11-10] VITALS (7 sets, daily range): BP systolic 127–146; BP diastolic 80–91; PULSE 90–106; RESP 18–20; TEMP 36.7–36.9; O2SAT 88–93; BMI 22.6
[2023-11-10 17:03] LABS: Basophils % 0.2 %; Eosinophils % 0.2 %; Hematocrit 38.6 % (37-53); Lymphocytes # 0.7 10^3/uL (0.8-4.8); Lymphocytes % 5.6 %; Mean Corpuscular HGB Conc 31.9 g/dL (30-55); Mean Corpuscular Hemoglobin 28.5 pg (27-33); Mean Corpuscular Volume 89.6 fl (82-101); Mean Platelet Volume 8.5 fL (7.4-10.4); Monocytes # 0.7 10^3/uL (0.2-0.9); Monocytes % 6.2 %; Neutrophils # 10.38 10^3/uL (1.8-7.7); Neutrophils % 87.2 %; Nucleated Red Blood Cells % 0 %; Platelet Count 461 10^3/cmm (157-399); Red Blood Count 4.31 10^6/uL (3.85-5.65); Red Cell Distribution Width 14.2 % (12.1-15.1)
[2023-11-10] MEDS: azithromycin 250 mg Tablet 500 MG PO (17:11)
[2023-11-10] MEDS: cefTRIAXone 1,000 MG in sodium chloride 0.9% (plus) 50 ML 100 MG IV (17:11)
[2023-11-10] MEDS: pantoprazole 40 mg SDV IVP (17:11)
[2023-11-10] MEDS: heparin 5,000 unit/mL INJ 1 mL 5000 UNIT SUBCUT (17:11)
[2023-11-10] MEDS: sodium chloride 0.9% 1,000 ML 75 ML IV (17:12)
[2023-11-10 17:15] LABS: D Dimer 1.23 ug/mLFEU (0-0.59)
--- NOTE | 2023-11-10 17:16 | P.HP_ITS ---
Providers/Chief Complaint 2 Admitting Physician: Pete Sharp MD Primary Care Provider: Bella Ledesma MD Chief Complaint: pneumonia respiratory distress History of Present Illness Tk Ledesma is a 63 year old male with past medical history of squamous cell carcinoma of the tonsil, 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 As the symptoms did not improve he presented back to his outpatient oncologist who requested for direct admit. Patient has been complaining of cough which has been getting worse for last 2 months more acutely last 2 weeks along with high-grade fever up to 10 2-1 03 for last 2 weeks as well. Patient has a sick contact in son. Patient has been complaining of difficulty in breathing only with cough and runny nose. Denies any nausea, vomiting, headache. Review of Systems 2 General: Reports: 10 or more systems reviewed and unremarkable except in HPI and below Const: Denies: fever(s), chills, body aches, change in appetite, change in weight, malaise, night sweats, diaphoresis, change in sleep pattern, daytime sleepiness or snoring Eyes: Denies: change in vision, blurry vision, photophobia, eye discomfort or eye discharge ENMT: Denies: throat pain, enlarged tonsils, hoarseness, mouth pain, oral sores, dry mouth, tinnitus, nasal congestion or post nasal drip Card: Denies: chest pain, palpitations, irregular heart rhythm, edema, swelling of feet/ankles, lightheadedness, syncope, pre-syncope, dyspnea on exertion, orthopnea, leg pain with exertion or acrocyanosis Resp: Denies: dyspnea, productive cough, non-productive cough, wheezing, stridor, pain on inspiration, change in phlegm color, hemoptysis or chest congestion GI: Denies: abdominal pain, nausea, vomiting, hematemesis, coffee ground emesis, dysphagia, heartburn, diarrhea, constipation, bloating, GI cramping, change in bowel habits, pain on defecation, hematochezia or melena : Denies: flank pain, difficulty urinating, dysuria, urinary frequency, urinary urgency, urinary hesitancy, urinary dribbling, difficulty starting urination, change in urine stream, nocturia or hematuria Musc: Denies: neck pain, back pain, extremity pain, joint pain, joint swelling, joint redness, joint stiffness or limited range of motion Neuro: Denies: headache(s), numbness in extremities, weakness in extremities, sensory changes, lack of coordination, difficulty walking, frequent falls, dizziness, vertigo, confusion, Slurred speech present, difficulty communicating thoughts or seizure-like activity Psych: Denies: anxiety, depression, mood swings, panic attacks, hopelessness or irritability Endo: Denies: polyuria, polydipsia, tired all the time, cold intolerance, excessive sweating, flushing or heat intolerance Tacos/Lymph: Denies: easy bruising or easy bleeding All/Imm: Denies: tongue swelling, facial swelling or acute wheezing Medications/Allergies Home Medications Medication Instructions Recorded Confirmed Last Taken Type ergocalciferol (vitamin D2) 1,250 1,250 mcg PO .weekly #4 caps 04/09/23 11/04/23 1 Day Ago Rx mcg (50,000 unit) capsule ~04/21/23 thyroid (pork) 180 mg tablet 180 mg PO DAILY #30 tabs 04/09/23 11/04/23 1 Day Ago Rx ([place] Thyroid) ~04/21/23 dexamethasone 4 mg tablet 8 mg (2 x 4 mg) PO BID #36 tabs 04/28/23 11/04/23 Unknown Rx lorazepam 1 mg tablet 0.5 - 1 mg (0.5 - 1 x 1 mg) PO Q6H 04/28/23 11/04/23 Unknown Rx PRN Severe Nausea #30 tabs ondansetron 8 mg disintegrating 8 mg PO Q8H PRN nausea and 04/28/23 11/04/23 Unknown Rx tablet vomiting #30 tabs thyroid (pork) 30 mg tablet 30 mg PO DAILY #90 tabs 05/20/23 11/04/23 Unknown Rx ([place] Thyroid) acetaminophen 500 mg capsule 500 mg PO Q6H PRN 06/16/23 11/04/23 Unknown History guaifenesin 1,200 mg tablet, 1,200 mg PO .Q6HR 06/16/23 11/04/23 Unknown History extended release 12 hr (Mucinex) ibuprofen 200 mg tablet 200 mg PO Q6H PRN 06/16/23 11/04/23 Unknown History meloxicam 7.5 mg tablet 7.5 mg PO DAILY PRN 06/16/23 11/04/23 Unknown History metoclopramide HCl 10 mg tablet 10 mg PO QID PRN nausea and 06/16/23 11/04/23 Unknown Rx (Reglan) vomiting #120 tabs levofloxacin 500 mg tablet 500 mg PO DAILY #7 tabs 07/15/23 11/04/23 Unknown Rx Enteral Feeding Pump and supplies #1 ea 09/10/23 11/04/23 Unknown Rx Booost plus #240 ea 10/14/23 11/04/23 Unknown Rx Kangaroo Feeding pump and supplies #1 ea 10/14/23 11/04/23 Unknown Rx cefdinir 250 mg/5 mL oral 500 mg (10 mL) PO BID 14 days #280 11/04/23 11/04/23 Unknown Rx suspension mL fluconazole 40 mg/mL oral 100 mg (2.5 mL) PO DAILY 14 days 11/04/23 11/04/23 Unknown Rx suspension #35 mL Allergies Allergy/AdvReac Type Severity Reaction Status Date / Time No Known Allergies Allergy Verified 11/04/23 12:03 PFSH Acute 2 PFSH: Medical History (Updated 11/10/23 @ 17:26 by Pete Sharp MD) Squamous cell carcinoma of left tonsil Hypothyroidism Surgical History (Updated 11/07/23 @ 17:03 by Abhay Verdugo MD) Port-A-Cath in place 04/23/23 Dr Baer S/P percutaneous endoscopic gastrostomy (PEG) tube placement Hx of rotator cuff surgery right side Hx of colonoscopy with polypectomy 2021 History of oral surgery (12/16/18) 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) Bilateral Family History Father Cancer Lung Diabetes Denies family history of CAD (coronary artery disease) Clotting disorder Dementia Hyperlipidemia Psychiatric illness Chronic kidney disease (CKD) Suicide Anesthesia complication Bleeding disorder Lung disease Hypertension Stroke Social History Smoking and tobacco/nicotine status: former use of tobacco/nicotine Quit status (tobacco/nicotine): has quit using Year quit tobacco: 2013 Former quit date comment: smoked x 20 years Alcohol intake: never Vitals/I&O/Wt Last Vital Signs Pulse 92 11/10/23 16:53 Resp 20 H 11/10/23 16:53 Pulse Ox 92 11/10/23 16:53 O2 Del Method Nasal Cannula 11/10/23 16:53 O2 Flow Rate 4 11/10/23 16:53 Weight last 48 hrs Weight 78.018 kg Physical Exam 2 Narrative: General: No acute distress, AO x3, sick appearing, communicates in soft speech HEENT: PERRLA, pupils bilaterally equal and reactive Chest: Normal vesicular breath sounds, coarse crackles bilateral lower zone right more than left, equal good air entry bilaterally CVS: S1-S2 regular, no murmurs, no tachycardia, no gallops, no rubs Abdomen: Soft, nontender, no organomegaly, bowel sounds present Neuro: No focal deficits, no facial deformity, AO x3, power 5/5 in all limbs Data 11/10/23 16:42 11/10/23 16:42 Micro: Microbiology 11/10/23 16:42 Blood Culture - Preliminary Blood SPECIMEN COLLECTED A&P Assessment and plan (1) Pneumonia: Concerns for aspiration pneumonia. Patient has been taking orally till 2 weeks ago. Patient is immunocompromised. Failure of outpatient treatment. Check sputum culture, MRSA swab, blood culture, procalcitonin, urine Legionella, bacterial antigen. Await CBC and CMP. Depending on the CMP will plan for CT chest versus CTA. Check D-dimer. Check respiratory viral panel. Oxygen supplementation keeping saturation of 90%. Start on IV ceftriaxone and azithromycin to cover for community-acquired pneumonia. Keep n.p.o. for now. Normal saline at 75 cc/h. Restart PEG tube feeds after dietitian consult in AM. (2) Hypoxia: Oxygen supplementation keeping saturation over 90%. DuoNebs every 6 hour, Pulmicort twice daily. 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 Post chemoradiation therapy. Last chemotherapy in August 2023. (4) Port-A-Cath in place: (5) S/P percutaneous endoscopic gastrostomy (PEG) tube placement: (6) Hypothyroidism: Check TSH. Restart home dose of levothyroxine. (7) Aleksandra infection, oral: Nystatin swish and swallow. Fluconazole 200 mg oral daily for next 7 days. (8) Protein malnutrition: (9) Immunocompromised: (10) Failure of outpatient treatment: Plan CODE STATUS: Discussed in detail with the patient. Full code. will be the DPOA. NPO. Protonix for PUD prophylaxis Heparin 5000 every 12 hourly for DVT prophylaxis. Restart home medications once medical reconciliation completed. Attestations 2 Medical Necessity Statement*: Admission for more than 2 midnights for management of community-acquired pneumonia with failure of outpatient treatment in a patient who is immunocompromised. 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
[2023-11-10 17:35] LABS: Slide Review Slide Review Perform
[2023-11-10 17:40] LABS: Procalcitonin 0.83 ng/mL (0-0.5); Thyroid Stimulating Hormone 4.23 uIU/mL (0.27-4.20); Vitamin B12 1389 pg/mL (232-1245)
[2023-11-10 17:52] LABS: Alanine Aminotransferase 13 U/L (0-41); Albumin Level 2.6 g/dL (3.5-5.2); Alkaline Phosphatase 72 U/L (40-130); Anion Gap 16.2 (5-19); Aspartate Amino Transferase 14 U/L (0-40); Blood Urea Nitrogen 28 mg/dL (8-23); Calcium 9.5 mg/dL (8.5-10.5); Carbon Dioxide 30 mmol/L (22-29); Chloride 93 mmol/L (98-107); Creatinine Clr Calc Pharmacy 108.5526; Globulin 4.2 g/dL (1.3-4.6); Glomerular Filtration Rate 98.3 mL/min (90-130); Glucose 148 mg/dL (65-115); Iron 10 ug/dL (59-158); Osmolality Calculated 286 mOsm/kg (285-295); Percent Saturation 6.8 % (20-50); Potassium 5.2 mmol/L (3.5-5.1); Sodium 134 mmol/L (136-145); Total Bilirubin 0.3 mg/dL (0.15-1.2); Total Iron Binding Capacity 147 mcg/dl; Total Protein 6.8 g/dL (6.6-8.7); Unsaturated Iron Binding 137 ug/dL (112-347)
[2023-11-10] MEDS: acetaminophen 325 mg Tablet 650 MG PO (20:05)
[2023-11-10 20:46] LABS: Bilirubin Urine Neg (Negative); Blood Urine 2+ (Negative); Glucose Urine UA Norm (Normal); Ketones Urine Negative (Negative); Leukocyte Esterase Urine Negative (Negative); Nitrate Urine Negative (Negative); Protein Urine Neg (Negative); Specific Gravity, Urine 1.015 (1.005-1.030); Urine Appearance Clear (CLEAR); Urine Color Yellow (Yellow); Urobilinogen Urine Norm (Negative); pH Urine 5 (5-7)
[2023-11-10 20:47] LABS: Add Urine Culture? No; Add Urine Microscopic? YES; Bacteria Urine TRACE /hpf; Squamous Epithelial Cell Urine 0-4 /hpf (0-5); WBC Urine 0-4 /hpf (0-5)
[2023-11-10] MEDS: budesonide 0.5 mg/2 mL Neb INHALATION (21:25)
[2023-11-10] MEDS: ipratropium-albuterol 3 mL Neb INHALATION (21:25)
--- NOTE | 2023-11-10 22:02 | CTR_ITS ---
PROCEDURE INFORMATION: Exam: CTA Chest With Contrast Exam date and time: 11/10/2023 10:33 PM Age: 63 years old Clinical indication: Dyspnea; Additional info: Hypoxia, pna TECHNIQUE: Imaging protocol: Computed tomographic angiography of the chest with contrast. Exam focused on the arteries. 3D rendering (Not supervised by radiologist): MIP and/or 3D reconstructed images were created by the technologist. Radiation optimization: All CT scans at this facility use at least one of these dose optimization techniques: automated exposure control; mA and/or kV adjustment per patient size (includes targeted exams where dose is matched to clinical indication); or iterative reconstruction. Contrast material: OMNI 350; Contrast volume: 100 ml; Contrast route: INTRAVENOUS (IV); COMPARISON: PT PET [facility] INITIAL [id number] 10/14/2023 9:32 AM RADIATION DOSE METRICS: Total DLP (mGy-cm): 424.81 FINDINGS: Pulmonary arteries: The pulmonary artery are adequately visualized to the segmental level. There are few subsegmental left lower lobe branches which are not well opacified and pulmonary embolism is difficult to exclude no central or segmental pulmonary emboli are seen. The main pulmonary artery is normal in size. There is no evidence of right heart strain. Aorta: Unremarkable. No aortic aneurysm. No aortic dissection. Lungs: New large dense right posterior lower lobe consolidation and [id number] areas of consolidation in the posterior left lower lobe. Worsening tree-in-bud opacities in the right upper lobe and left lower lobe. Nodularity of the major and minor fissures on the right.. Pleural spaces: New trace right pleural effusion, likely loculated. Heart: See Pulmonary arteries finding. Lymph nodes: Enlarged mediastinal lymph nodes are increased in size compared to prior PET-CT. A precarinal lymph node measures 16 x 21 mm. A subcarinal lymph node measures 13 x 20 1 mL. There are newly apparent bilateral enlarged hilar lymph nodes. No enlarged axillary lymph nodes are seen. Liver: Hepatic hypodensities not well assessed though appear grossly stable and likely reflects cysts. Bones/joints: Unremarkable. No acute fracture. Soft tissues: Unremarkable. CT/CT angio chest PE protcl [id number] IMPRESSION: 1. No evidence pulmonary embolism to the segmental level. Left lower lobe subsegmental pulmonary emboli difficult to exclude. No definitive emboli are identified. 2. Enlarging mediastinal and hilar lymph nodes. 3. Marked progression of pulmonary disease is nonspecific and may represent progression of neoplastic and/or infectious etiology.
[2023-11-10 22:15] LABS: Adenovirus Not Detected (NOT DETECT); Chlamydia Pneumoniae Not Detected (NOT DETECT); Coronavirus 229E,HKU1,NL63,OC4 Not Detected (NOT DETECT); Human Metapneumovirus Not Detected (NOT DETECT); Human Rhinovirus/Enterovirus Not Detected (NOT DETECT); Influenza A Not Detected (NOT DETECT); Influenza A H1 Not Detected (NOT DETECT); Influenza A H1-2009 Not Detected (NOT DETECT); Influenza A H3 Not Detected (NOT DETECT); Influenza B Not Detected (NOT DETECT); Mycoplasma Pneumoniae Not Detected (NOT DETECT); Parainfluenza Virus Type 1 Not Detected (NOT DETECT); Parainfluenza Virus Type 2 Not Detected (NOT DETECT); Parainfluenza Virus Type 3 Not Detected (NOT DETECT); Parainfluenza Virus Type 4 Not Detected (NOT DETECT); Respiratory Syncytial Virus A Not Detected (NOT DETECT); Respiratory Syncytial Virus B Not Detected (NOT DETECT); SARS-COV-2 Not Detected (NOT DETECT)
[2023-11-10] MEDS: iohexol 350 mg/mL 500 mL Btl (per mL) IV (22:39)
[2023-11-11] VITALS (16 sets, daily range): BP systolic 134–158; BP diastolic 79–93; PULSE 93–116; RESP 15–22; TEMP 36.3–37.7; O2SAT 90–94; BMI 22.9
[2023-11-11] MEDS: ondansetron 2 mg/ML SDV 2 mL 4 MG IVP ×2 (01:24→13:07)
[2023-11-11] MEDS: ipratropium-albuterol 3 mL Neb INHALATION ×4 (02:43→19:45)
[2023-11-11] MEDS: acetaminophen 325 mg Tablet 650 MG PO (02:57)
[2023-11-11] MEDS: heparin 5,000 unit/mL INJ 1 mL 5000 UNIT SUBCUT ×2 (04:23→16:06)
[2023-11-11] MEDS: sodium chloride 0.9% 1,000 ML 75 ML IV ×2 (06:00→17:36)
[2023-11-11 06:02] LABS: Basophils # 0.1 10^3/uL (0.0-0.1); Basophils % 0.9 %; Eosinophils % 0.1 %; Hematocrit 34.4 % (37-53); Lymphocytes # 0.8 10^3/uL (0.8-4.8); Lymphocytes % 6.1 %; Mean Corpuscular HGB Conc 31.7 g/dL (30-55); Mean Corpuscular Hemoglobin 28.5 pg (27-33); Mean Corpuscular Volume 90.1 fl (82-101); Mean Platelet Volume 8.8 fL (7.4-10.4); Monocytes # 0.9 10^3/uL (0.2-0.9); Monocytes % 6.9 %; Neutrophils # 10.82 10^3/uL (1.8-7.7); Neutrophils % 85.4 %; Nucleated Red Blood Cells % 0 %; Platelet Count 338 10^3/cmm (157-399); Red Blood Count 3.82 10^6/uL (3.85-5.65); Red Cell Distribution Width 14.7 % (12.1-15.1); White Blood Count 12.68 10^3/uL (3.29-11.43)
[2023-11-11 06:20] LABS: Estmated Average Glucose 137; Hemoglobin A1C 6.4 % (4.0-6.0)
[2023-11-11 06:25] LABS: Alanine Aminotransferase 11 U/L (0-41); Albumin Level 2.3 g/dL (3.5-5.2); Alkaline Phosphatase 68 U/L (40-130); Anion Gap 14.8 (5-19); Aspartate Amino Transferase 12 U/L (0-40); Blood Urea Nitrogen 21 mg/dL (8-23); Calcium 8.7 mg/dL (8.5-10.5); Carbon Dioxide 29 mmol/L (22-29); Chloride 95 mmol/L (98-107); Chol HDL Ratio 3.35 mg/dL (1.0-5.00); Cholesterol 77 mg/dL (0-200); Creatinine Clr Calc Pharmacy 109.0749; Glomerular Filtration Rate 98.3 mL/min (90-130); Glucose 135 mg/dL (65-115); HDL Cholesterol 23 mg/dL (60-100); LDL Cholesterol Calculated 32 mg/dL (50-129); LDL HDL Ratio 1.39 RATIO (0.00-3.22); Magnesium 1.5 mg/dL (1.7-2.3); Osmolality Calculated 283 mOsm/kg (285-295); Phosphorus 4.4 mg/dL (2.5-4.5); Potassium 4.8 mmol/L (3.5-5.1); Sodium 134 mmol/L (136-145); Total Bilirubin 0.3 mg/dL (0.15-1.2); Total Protein 6.3 g/dL (6.6-8.7); Triglycerides 112 mg/dL (0-150)
[2023-11-11 06:29] LABS: Slide Review Slide Review Perform
[2023-11-11] MEDS: budesonide 0.5 mg/2 mL Neb INHALATION ×2 (08:15→19:45)
[2023-11-11] MEDS: azithromycin 250 mg Tablet 500 MG PO (09:38)
--- NOTE | 2023-11-11 09:58 | PC.CHAP ---
Pastoral Care Encounter/Spiritual Assessment Type of Contact [] Declined medical coding technician visit [] Patient/Family/Request visit [] Outpatient visit [] Follow-up visit [] Physician referral [] Code/Alert [] Routine visit [] Staff referral [] Actively dying [x] Patient sleeping [] Family support [] [] Out of room [] Palliative care [] [] Receiving care in room [] Pre-surgical visit [] Trauma [] Long length of stay [] ICU visit [] Other: Relational/Emotional Strength [] Patient feels connected with others/family/visitors/staff [] Distress [] Loneliness/isolation [] Abandonment Spirituality of Patient [] Person of [place] [] Attends Alevism of their [place] [] Believes in Prayer [] Reads Bible or Jain materials [] There are Spiritual issues to be addressed Glass Sagger Interventions [] Prayer [] Active listening [] Non-anxious presence [] Spiritual/emotional support [] Crisis/trauma care [] Spiritual counseling [] Bereavement support [] Provided bereavement packet [] Provided Bible/devotional materials [] Provided toy/stuffed animal, coloring book to patient or family member [] Provided Communion [] Anointing/[place] [] Salvation [] Completed spiritual assessment [] Other: Impact on Illness or Injury [] Angry [] Fearful [] Anxious [] Often cries [] Exhaustion [] Unable to work [] Unable to attend nondenominational [] Unable to walk/stand [] Unable to read [] Unable to drive [] Unable to eat/drink [] Unable to sleep [] Unable to be with family [] Patient intubated [] Other: Summary Time spent with patient
[2023-11-11 10:03] LABS: Folate Level > 20.0 ng/mL (4.5-32.2)
[2023-11-11] MEDS: fluconazole 100 mg Tablet 200 MG PO (10:54)
[2023-11-11] MEDS: piperacillin-tazobactam 3.375 GM in sodium chloride 0.9% (plus) 50 ML IV ×2 (10:54→17:37)
--- NOTE | 2023-11-11 11:22 | PC.NUTR ---
08/19/23: in an outpatient visit documented in the EMR, I recommended 8 cartons Boost Plus chocolate, 2 cartons to be given 4x/day @ 8am/noon/4pm/8pm, or tweaked to fit Tk's schedule. At that time Tk reported losing 81lbs from February til August of 2023, which was extreme wt loss and classified him for severe PCM. His current wt of 174lbs indicates he weighs an additional 8lbs less. While Tk is inpatient, recommend Jevity 1.5, given at 8am/noon/4pm/8pm beginning with 120mls at those 4 intervals, increasing as tolerated to 480mls at each interval, with FWF 50mls before and after. At goal rate, this will provide 120 grams protein or 96% Pt's estimated protein needs, 2240mls or 81% Pt's estimated fluid needs and 2840 kcals or 102% Pt's estimated calorie needs. Details in RD assessment.
--- NOTE | 2023-11-11 15:00 | P.PN_ITS ---
Subjective 2 Subjective: No acute events overnight. Patient has been short of breath overnight. Today morning on oxygen mask with 5 L of oxygen supplementation saturating more than 90%. Slightly tachycardic. Otherwise blood pressure stable. Has remained afebrile. Vitals/I&O/Wt Last Vital Signs Temp 98.3 F 11/11/23 11:22 Pulse 113 H 11/11/23 14:22 Resp 21 H 11/11/23 13:45 BP 158/93 11/11/23 11:22 Pulse Ox 93 11/11/23 13:45 O2 Del Method Oxymask 11/11/23 13:45 O2 Flow Rate 5 11/11/23 13:45 11/11/23 11/11/23 11/11/23 06:59 14:59 22:59 Intake Total 960 / 1490 220 / 220 Output Total 200 / 200 600 / 600 Balance 760 / 1290 -380 / -380 Weight last 48 hrs Weight 78.97 kg Weight 78.97 kg Weight 78.018 kg Physical Exam 2 Narrative: General: No acute distress, AO x3, sick appearing, communicates in soft speech HEENT: PERRLA, pupils bilaterally equal and reactive Chest: Normal vesicular breath sounds, Coarse crackles bilaterally more on the left zone than right lower zone CVS: S1-S2 regular, no murmurs, no tachycardia, no gallops, no rubs Abdomen: Soft, nontender, no organomegaly, bowel sounds present Neuro: No focal deficits, no facial deformity, AO x3, power 5/5 in all limbs Data 11/11/23 05:46 11/11/23 05:53 Micro: Microbiology 11/10/23 16:58 Gram Stain - Final Sputum - Expectorated Sputum Sputum Culture - Preliminary Yeast species 11/10/23 21:29 Bacterial Antigens - Final Urine Kidney 11/10/23 20:20 Legionella Urinary Antigen - Final Unknown Source 11/10/23 20:55 Blood Culture - Preliminary Blood SPECIMEN COLLECTED 11/10/23 16:42 Blood Culture - Preliminary Blood SPECIMEN COLLECTED A&P Assessment and plan (1) Pneumonia: Concerns for aspiration pneumonia. Patient has been taking orally till 2 weeks ago. Patient is immunocompromised. Failure of outpatient treatment. Urine Legionella, bacterial antigen negative. Sputum culture, MRSA swab, blood culture pending. Appreciate CTA chest results. Negative for pulmonary embolism. Respiratory viral panel negative. Oxygen supplementation keeping saturation of 90%. Oxygen requirements have gone up. Will continue with azithromycin. Will switch from IV ceftriaxone to IV vancomycin renally dosed for now. Keep n.p.o. for now. Normal saline at 75 cc/h. (2) Hypoxia: Oxygen supplementation keeping saturation over 90%. DuoNebs every 6 hour, Pulmicort twice daily. 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 Post chemoradiation therapy. Last chemotherapy in August 2023. (4) Port-A-Cath in place: (5) S/P percutaneous endoscopic gastrostomy (PEG) tube placement: (6) Hypothyroidism: Appreciate TSH. Restart home dose of levothyroxine. (7) Aleksandra infection, oral: Nystatin swish and swallow. Fluconazole 200 mg oral daily for next 7 days. (8) Protein malnutrition: (9) Immunocompromised: (10) Failure of outpatient treatment: Plan High blood pressure: No documented history of hypertension. Goal blood pressure less than 140/90 mmHg. Patient slightly tachycardic. Start on metoprolol 25 mg twice daily. CODE STATUS: Discussed in detail with the patient. Full code. will be the DPOA. NPO. Protonix for PUD prophylaxis Heparin 5000 every 12 hourly for DVT prophylaxis. Restart home medications once medical reconciliation completed. Attestations 2 Medical Necessity Statement*: Requires further hospitalization for management of hypoxic respiratory failure in setting of left lower lobe pneumonia with concerns for aspiration pneumonia Diagnoses Pneumonia J18.9 Hypoxia R09.02 Malignant neoplasm of overlapping sites of tonsil C09.8 Port-A-Cath in place Z95.828 S/P percutaneous endoscopic gastrostomy (PEG) tube placement Z93.1 Hypothyroidism E03.9 Aleksandra infection, oral B37.0 Protein malnutrition E46 Immunocompromised D84.9 Failure of outpatient treatment Z78.9
[2023-11-11] MEDS: pantoprazole 40 mg SDV IVP (16:06)
[2023-11-11] MEDS: metoprolol tartrate 25 mg Tablet PO ×2 (16:06→20:47)
[2023-11-12] VITALS (14 sets, daily range): BP systolic 114–165; BP diastolic 74–93; PULSE 81–101; RESP 16–22; TEMP 36.7–37.3; O2SAT 90–95; BMI 22.8
[2023-11-12] MEDS: piperacillin-tazobactam 3.375 GM in sodium chloride 0.9% (plus) 50 ML IV ×3 (02:18→17:42)
[2023-11-12] MEDS: ipratropium-albuterol 3 mL Neb INHALATION ×4 (02:48→20:21)
[2023-11-12] MEDS: heparin 5,000 unit/mL INJ 1 mL 5000 UNIT SUBCUT ×2 (03:49→15:14)
[2023-11-12 05:45] LABS: Basophils % 0.4 %; Eosinophils % 0.3 %; Hematocrit 32.9 % (37-53); Lymphocytes # 0.8 10^3/uL (0.8-4.8); Lymphocytes % 7.4 %; Mean Corpuscular HGB Conc 31.6 g/dL (30-55); Mean Corpuscular Hemoglobin 27.7 pg (27-33); Mean Corpuscular Volume 87.7 fl (82-101); Mean Platelet Volume 8.8 fL (7.4-10.4); Monocytes # 0.8 10^3/uL (0.2-0.9); Monocytes % 7.7 %; Neutrophils # 8.96 10^3/uL (1.8-7.7); Neutrophils % 83.6 %; Nucleated Red Blood Cells % 0 %; Platelet Count 426 10^3/cmm (157-399); Red Blood Count 3.75 10^6/uL (3.85-5.65); Red Cell Distribution Width 14.5 % (12.1-15.1)
[2023-11-12 06:12] LABS: Slide Review Slide Review Perform
[2023-11-12 06:18] LABS: Alanine Aminotransferase 11 U/L (0-41); Albumin Level 2.1 g/dL (3.5-5.2); Alkaline Phosphatase 74 U/L (40-130); Anion Gap 15.8 (5-19); Aspartate Amino Transferase 16 U/L (0-40); Blood Urea Nitrogen 17 mg/dL (8-23); Calcium 8.6 mg/dL (8.5-10.5); Carbon Dioxide 29 mmol/L (22-29); Chloride 96 mmol/L (98-107); Creatinine Clr Calc Pharmacy 108.8011; Globulin 4.1 g/dL (1.3-4.6); Glomerular Filtration Rate 98.3 mL/min (90-130); Glucose 100 mg/dL (65-115); Osmolality Calculated 284 mOsm/kg (285-295); Potassium 4.8 mmol/L (3.5-5.1); Sodium 136 mmol/L (136-145); Total Bilirubin 0.3 mg/dL (0.15-1.2); Total Protein 6.2 g/dL (6.6-8.7)
[2023-11-12] MEDS: acetaminophen 325 mg Tablet 650 MG PO (06:22)
[2023-11-12] MEDS: budesonide 0.5 mg/2 mL Neb INHALATION ×2 (07:49→20:21)
[2023-11-12] MEDS: azithromycin 250 mg Tablet 500 MG PO (08:08)
[2023-11-12] MEDS: fluconazole 100 mg Tablet 200 MG PO (08:08)
[2023-11-12] MEDS: thyroid 60 mg Tablet 180 MG PO (08:08)
[2023-11-12] MEDS: metoprolol tartrate 25 mg Tablet PO ×2 (08:09→20:49)
[2023-11-12] MEDS: sodium chloride 0.9% 1,000 ML 75 ML IV (08:09)
[2023-11-12] MEDS: FUROsemide 10 mg/mL SDV 4mL 40 MG IVP (10:56)
--- NOTE | 2023-11-12 14:06 | P.PN_ITS ---
Subjective 2 Subjective: Today morning patient seen sitting in the chair. As per nurse on getting from bed to chair patient had extreme shortness of breath and had an episode of desaturation as well. He continues to remain on a simple mask up to 5 L of oxygen supplementation saturating more than 90%. Patient states he is feeling slightly better and stronger today. Denies any changing in breathing effort. Continues to have more cough especially during conversation. Vitals/I&O/Wt Last Vital Signs Temp 98.3 F 11/12/23 11:14 Pulse 95 11/12/23 13:10 Resp 22 H 11/12/23 11:37 BP 114/74 11/12/23 11:14 Pulse Ox 91 11/12/23 11:37 O2 Del Method Simple Mask 11/12/23 11:14 O2 Flow Rate 45 11/12/23 11:37 FiO2 50 11/12/23 11:37 11/11/23 11/12/23 11/12/23 22:59 06:59 14:59 Intake Total 1090 / 1310 1050 / 2360 200 / 200 Output Total 1750 / 2350 1500 / 1500 Balance 1090 / 710 -700 / 10 -1300 / -1300 Weight last 48 hrs Weight 78.471 kg Weight 78.471 kg Weight 78.97 kg Weight 78.97 kg Weight 78.018 kg Physical Exam 2 Narrative: General: No acute distress, AO x3, sick appearing, communicates in soft speech HEENT: PERRLA, pupils bilaterally equal and reactive Chest: Normal vesicular breath sounds, Coarse crackles bilaterally more on the left zone than right lower zone CVS: S1-S2 regular, no murmurs, no tachycardia, no gallops, no rubs Abdomen: Soft, nontender, no organomegaly, bowel sounds present Neuro: No focal deficits, no facial deformity, AO x3, power 5/5 in all limbs Data 11/12/23 05:18 11/12/23 05:18 Micro: Microbiology 11/10/23 20:55 Blood Culture - Preliminary Blood NEGATIVE TO DATE 11/10/23 16:42 Blood Culture - Preliminary Blood NEGATIVE TO DATE 11/10/23 16:58 Gram Stain - Final Sputum - Expectorated Sputum Sputum Culture - Preliminary Yeast species 11/10/23 21:29 Bacterial Antigens - Final Urine Kidney A&P Assessment and plan (1) Pneumonia: Concerns for aspiration pneumonia. Patient has been taking orally till 2 weeks ago. Patient is immunocompromised. Failure of outpatient treatment. Urine Legionella, bacterial antigen negative. Sputum culture, MRSA swab, blood culture pending. Appreciate CTA chest results. Negative for pulmonary embolism. Respiratory viral panel negative. Oxygen supplementation keeping saturation of 90%. Oxygen requirements have gone up. Will continue with azithromycin. Will switch from IV ceftriaxone to IV vancomycin renally dosed for now. Keep n.p.o. for now. Normal saline at 75 cc/h. (2) Hypoxia: Oxygen supplementation keeping saturation over 90%. DuoNebs every 6 hour, Pulmicort twice daily. 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 Post chemoradiation therapy. Last chemotherapy in August 2023. (4) Port-A-Cath in place: (5) S/P percutaneous endoscopic gastrostomy (PEG) tube placement: (6) Hypothyroidism: Appreciate TSH. Restart home dose of levothyroxine. (7) Aleksandra infection, oral: Nystatin swish and swallow. Fluconazole 200 mg oral daily for next 7 days. (8) Protein malnutrition: (9) Immunocompromised: (10) Failure of outpatient treatment: Plan High blood pressure: No documented history of hypertension. Goal blood pressure less than 140/90 mmHg. Patient slightly tachycardic. Start on metoprolol 25 mg twice daily. CODE STATUS: Discussed in detail with the patient. Full code. will be the DPOA. NPO. Protonix for PUD prophylaxis Heparin 5000 every 12 hourly for DVT prophylaxis. Plan for today: Patient continues to remain in severe respiratory distress. Continue with IV Zosyn. MRSA swab pending. If positive will plan for vancomycin. Patient has remained hemodynamically stable and afebrile with resolution of leukocytosis though his breathing effort remains poor. Oxygen supplementation keeping saturation over 88 to 90%. Switch to heated high flow to decrease respiratory effort. Given patient being on Keytruda and worsening respiratory status will check for atypicals including histoplasma, cryptococcus, coccidiomycosis, blastomycosis. Check Fungitell as well. Check QuantiFERON. Continue aggressive pulmonary toilet. Stop IV fluids. One-time Lasix 40 mg ordered. Will try to keep patient as net negative as possible given high oxygen requirements. Treatment plan discussed in detail with patient at bedside. All the questions were answered. Attestations 2 Medical Necessity Statement*: Requires further hospitalization for management of respiratory distress and hypoxic respiratory failure in setting of aspiration pneumonia in a patient is immunocompromised Diagnoses Pneumonia J18.9 Hypoxia R09.02 Malignant neoplasm of overlapping sites of tonsil C09.8 Port-A-Cath in place Z95.828 S/P percutaneous endoscopic gastrostomy (PEG) tube placement Z93.1 Hypothyroidism E03.9 Aleksandra infection, oral B37.0 Protein malnutrition E46 Immunocompromised D84.9 Failure of outpatient treatment Z78.9
[2023-11-12 14:58] LABS: Methicillin-Resist S.aureu PCR NOT DETECTED (NOT DETECTED)
[2023-11-12] MEDS: pantoprazole 40 mg SDV IVP (15:14)
--- NOTE | 2023-11-12 17:04 | PC.NURSE ---
Urine sent to lab for sent out lab tests ordered by Dr. Sharp.
[2023-11-13] VITALS (25 sets, daily range): BP systolic 121–132; BP diastolic 75–88; PULSE 82–99; RESP 16–20; TEMP 36.3–36.8; O2SAT 90–97
[2023-11-13] MEDS: ipratropium-albuterol 3 mL Neb INHALATION ×7 (00:56→23:45)
[2023-11-13] MEDS: piperacillin-tazobactam 3.375 GM in sodium chloride 0.9% (plus) 50 ML IV ×3 (02:29→18:03)
[2023-11-13] MEDS: heparin 5,000 unit/mL INJ 1 mL 5000 UNIT SUBCUT ×2 (03:58→18:03)
[2023-11-13 05:22] LABS: Basophils % 0.4 %; Eosinophils # 0.1 10^3/uL (0.0-0.8); Eosinophils % 0.6 %; Hematocrit 34.9 % (37-53); Mean Corpuscular HGB Conc 31.8 g/dL (30-55); Mean Corpuscular Volume 88.1 fl (82-101); Mean Platelet Volume 8.6 fL (7.4-10.4); Monocytes # 0.7 10^3/uL (0.2-0.9); Monocytes % 7.8 %; Neutrophils # 7.59 10^3/uL (1.8-7.7); Neutrophils % 80.4 %; Nucleated Red Blood Cells % 0 %; Platelet Count 446 10^3/cmm (157-399); Red Blood Count 3.96 10^6/uL (3.85-5.65); Red Cell Distribution Width 14.3 % (12.1-15.1); White Blood Count 9.46 10^3/uL (3.29-11.43)
[2023-11-13 06:22] LABS: Alanine Aminotransferase 11 U/L (0-41); Albumin Level 2.4 g/dL (3.5-5.2); Alkaline Phosphatase 61 U/L (40-130); Anion Gap 17.2 (5-19); Aspartate Amino Transferase 14 U/L (0-40); Blood Urea Nitrogen 21 mg/dL (8-23); Calcium 8.9 mg/dL (8.5-10.5); Carbon Dioxide 31 mmol/L (22-29); Chloride 92 mmol/L (98-107); Creatinine Clr Calc Pharmacy 95.0258; Globulin 4.3 g/dL (1.3-4.6); Glomerular Filtration Rate 85.8 mL/min (90-130); Glucose 83 mg/dL (65-115); Osmolality Calculated 284 mOsm/kg (285-295); Potassium 4.2 mmol/L (3.5-5.1); Sodium 136 mmol/L (136-145); Total Bilirubin 0.4 mg/dL (0.15-1.2); Total Protein 6.7 g/dL (6.6-8.7)
[2023-11-13] MEDS: budesonide 0.5 mg/2 mL Neb INHALATION ×2 (07:17→19:51)
[2023-11-13] MEDS: azithromycin 250 mg Tablet 500 MG PO (08:03)
[2023-11-13] MEDS: metoprolol tartrate 25 mg Tablet PO ×2 (08:03→21:19)
[2023-11-13] MEDS: fluconazole 100 mg Tablet 200 MG PO (08:03)
[2023-11-13] MEDS: thyroid 60 mg Tablet 180 MG PO (08:03)
[2023-11-13] MEDS: FUROsemide 10 mg/mL SDV 2mL 20 MG IVP (10:58)
[2023-11-13] MEDS: scopolamine 1.5 Patch 1 PATCH TRANSDERMA (13:08)
[2023-11-13] MEDS: acetaminophen 325 mg Tablet 650 MG PO (13:08)
--- NOTE | 2023-11-13 13:53 | P.PN_ITS ---
Subjective 2 Subjective: No acute events overnight. Today morning patient seen sitting up in the bed. Oxygen supplementation has been turned out to 30 L 30%. States he is feeling slightly better. Saturating in low 90s. Heart rate better controlled. Denies any nausea, vomiting, headache. Patient has been having multiple episodes of spitting which is a combination of both sputum and saliva. Vitals/I&O/Wt Last Vital Signs Temp 98.2 F 11/13/23 11:34 Pulse 91 11/13/23 11:34 Resp 16 11/13/23 11:34 BP 127/75 11/13/23 11:34 Pulse Ox 90 11/13/23 11:34 O2 Del Method Heated High Flow 11/13/23 11:34 O2 Flow Rate 40 11/13/23 11:10 FiO2 50 11/13/23 11:10 11/12/23 11/13/23 11/13/23 22:59 06:59 14:59 Intake Total 100 / 350 Output Total 200 / 2500 100 / 2600 200 / 200 Balance -200 / -2250 0 / -2250 -200 / -200 Weight last 48 hrs Weight 75.013 kg Weight 78.471 kg Weight 78.471 kg Physical Exam 2 Narrative: General: No acute distress, AO x3, sick appearing, communicates in soft speech HEENT: PERRLA, pupils bilaterally equal and reactive Chest: Normal vesicular breath sounds, Coarse crackles bilaterally more on the left zone than right lower zone CVS: S1-S2 regular, no murmurs, no tachycardia, no gallops, no rubs Abdomen: Soft, nontender, no organomegaly, bowel sounds present Neuro: No focal deficits, no facial deformity, AO x3, power 5/5 in all limbs Data 11/13/23 05:00 11/13/23 05:00 Micro: Microbiology 11/12/23 10:30 Gram Stain - Final Sputum - Expectorated Sputum Sputum Culture - Final Aleksandra krusei 11/10/23 16:58 Gram Stain - Final Sputum - Expectorated Sputum Sputum Culture - Final Aleksandra krusei A&P Assessment and plan (1) Pneumonia: Concerns for aspiration pneumonia. Patient has been taking orally till 2 weeks ago. Patient is immunocompromised. Failure of outpatient treatment. Respiratory viral panel negative. CTA negative for pulmonary embolism but consistent with left lower lobe pneumonia. Urine Legionella, bacterial antigen negative. MRSA swab negative. Sputum culture growing Aleksandra. Will ask lab to send for further extremities. Blood culture pending. Further workup for atypical pneumonia given patient being on Keytruda including blastomycosis, histoplasma, coccidiomycosis, cryptococcus pending. Continue with IV Zosyn. Stop azithromycin as patient has finished 3-day course of antibiotics. Continue with Pulmicort twice daily, ipratropium, Xopenex every 4 hour. Patient is having extreme amount of secretions. Will try with a patch of scopolamine. Keep n.p.o. for now. Will plan to start tube feeds through pump tomorrow. IV Lasix 20 mg one-time. (2) Hypoxia: Oxygen supplementation keeping saturation over 90%. Nebulization as above. 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 Post chemoradiation therapy. Last chemotherapy in August 2023. (4) Port-A-Cath in place: (5) S/P percutaneous endoscopic gastrostomy (PEG) tube placement: (6) Hypothyroidism: Appreciate TSH. Restart home dose of levothyroxine. (7) Aleksandra infection, oral: Nystatin swish and swallow. Fluconazole 200 mg oral daily for next 7 days. (8) Protein malnutrition: (9) Immunocompromised: (10) Failure of outpatient treatment: Plan High blood pressure: No documented history of hypertension. Goal blood pressure less than 140/90 mmHg. Continue with metoprolol 25 mg twice daily. Blood pressures and heart rate better controlled. CODE STATUS: Discussed in detail with the patient. Full code. will be the DPOA. NPO. Plan to start on tube feeds through pump tomorrow. Plan to start at 20 cc an hour and increase 10 cc every 4 hours. The goal is reached. Will confirm goal with dietitian. Protonix for PUD prophylaxis Heparin 5000 every 12 hourly for DVT prophylaxis. Treatment plan discussed in detail with patient at bedside and with over the phone. All the questions were answered. Attestations 2 Medical Necessity Statement*: Requires further hospitalization for management of hypoxic respiratory failure in setting of left lower lobe pneumonia with high concerns for aspiration pneumonia while atypical pneumonia is ruled out and patient remains high flow dependent. 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
[2023-11-13] MEDS: pantoprazole 40 mg SDV IVP (18:03)
--- NOTE | 2023-11-13 18:41 | PC.NURSE ---
SHIFT SUMMARY Patient has done very well today. Still NPO. Patient ambulated in the banks twice today on 8L oxymask and O2 saturation maintained 95%. Patient sat up in the chair most of the day. Pain well controlled with tylenol. Good urine output. Currently off of heated high flow and on 7L high flow, O2 saturation is 92%. Currently resting in bed.
[2023-11-14] VITALS (23 sets, daily range): BP systolic 113–152; BP diastolic 71–99; PULSE 79–100; RESP 16–19; TEMP 36.5–36.7; O2SAT 90–95
[2023-11-14] MEDS: piperacillin-tazobactam 3.375 GM in sodium chloride 0.9% (plus) 50 ML IV ×3 (02:15→17:31)
[2023-11-14] MEDS: ipratropium-albuterol 3 mL Neb INHALATION ×6 (03:44→23:44)
[2023-11-14 04:50] LABS: Basophils # 0.1 10^3/uL (0.0-0.1); Basophils % 0.8 %; Eosinophils # 0.1 10^3/uL (0.0-0.8); Eosinophils % 0.8 %; Hematocrit 36.2 % (37-53); Lymphocytes # 0.8 10^3/uL (0.8-4.8); Lymphocytes % 11.1 %; Mean Corpuscular HGB Conc 31.5 g/dL (30-55); Mean Corpuscular Hemoglobin 27.9 pg (27-33); Mean Corpuscular Volume 88.7 fl (82-101); Mean Platelet Volume 8.5 fL (7.4-10.4); Monocytes # 0.7 10^3/uL (0.2-0.9); Monocytes % 9.3 %; Neutrophils # 5.77 10^3/uL (1.8-7.7); Neutrophils % 76.9 %; Nucleated Red Blood Cells % 0 %; Platelet Count 464 10^3/cmm (157-399); Red Blood Count 4.08 10^6/uL (3.85-5.65); Red Cell Distribution Width 14.2 % (12.1-15.1)
[2023-11-14] MEDS: heparin 5,000 unit/mL INJ 1 mL 5000 UNIT SUBCUT ×2 (05:10→17:30)
[2023-11-14 05:18] LABS: Albumin Level 2.6 g/dL (3.5-5.2); Alkaline Phosphatase 70 U/L (40-130); Anion Gap 16.6 (5-19); Blood Urea Nitrogen 23 mg/dL (8-23); Carbon Dioxide 33 mmol/L (22-29); Chloride 93 mmol/L (98-107); Creatinine Clr Calc Pharmacy 94.5142; Globulin 4.4 g/dL (1.3-4.6); Glomerular Filtration Rate 85.8 mL/min (90-130); Glucose 117 mg/dL (65-115); Osmolality Calculated 291 mOsm/kg (285-295); Potassium 4.6 mmol/L (3.5-5.1); Sodium 138 mmol/L (136-145); Total Bilirubin 0.4 mg/dL (0.15-1.2)
[2023-11-14 05:30] LABS: Aspartate Amino Transferase 5 U/L (0-40)
[2023-11-14 05:36] LABS: Alanine Aminotransferase 11 U/L (0-41)
[2023-11-14] MEDS: acetaminophen 325 mg Tablet 650 MG PO (06:10)
[2023-11-14] MEDS: ondansetron 2 mg/ML SDV 2 mL 4 MG IVP ×3 (06:11→19:57)
[2023-11-14] MEDS: budesonide 0.5 mg/2 mL Neb INHALATION ×2 (08:01→20:35)
[2023-11-14] MEDS: metoprolol tartrate 25 mg Tablet PO ×2 (08:36→21:21)
[2023-11-14] MEDS: fluconazole 100 mg Tablet 200 MG PO (08:36)
[2023-11-14] MEDS: thyroid 60 mg Tablet 180 MG PO (08:36)
--- NOTE | 2023-11-14 10:58 | PC.NUTR ---
Recommend consideration of Jevity 1.5 beginning @ 20 mls/hr, increasing either 10mls/Q4H or 20 mls/Q8H as tolerated until goal rate of 70 mls/hr is reached, with FWF 100mls Q4H or per MD discretion. Details in RD assessment.
[2023-11-14] MEDS: morphine 4 mg/mL SDV 1 mL 2 MG IVP ×2 (11:43→21:20)
[2023-11-14] MEDS: FUROsemide 10 mg/mL SDV 2mL 20 MG IVP (11:44)
[2023-11-14 12:05] LABS: Quantiferon Mitogen 0.48 IU/mL; Quantiferon Nil 0.02 IU/mL; Quantiferon Plus TB1 <0.00 IU/mL; Quantiferon TB Gold INDETERMINATE (NEGATIVE)
[2023-11-14] MEDS: saliva stimulant spray 30 mL Btl 1 SPRAY MUCOUS MEM (14:19)
[2023-11-14] MEDS: lanolin oint 7 gm 1 APPLIC TOPICAL (14:44)
--- NOTE | 2023-11-14 16:37 | P.PN_ITS ---
Subjective 2 Subjective: No acute events overnight. As per the respiratory team patient was transitioned over to 6 L high flow nasal cannula last evening. Today morning on examination he 35 to 35% oxygen. He was transition back to 6 L. Saturating over 88%. Patient states he is feeling better but more tired and nauseated today. Seen with at bedside. Vitals/I&O/Wt Last Vital Signs Temp 97.7 F 11/14/23 11:27 Pulse 82 11/14/23 15:40 Resp 16 11/14/23 15:35 BP 127/80 11/14/23 11:27 Pulse Ox 91 11/14/23 15:35 O2 Del Method High Flow Nasal Cannula 11/14/23 15:35 O2 Flow Rate 6 11/14/23 15:35 FiO2 47 11/14/23 11:16 11/14/23 11/14/23 11/14/23 06:59 14:59 22:59 Intake Total 50 / 150 50 / 50 Output Total 825 / 825 Balance 50 / -850 -825 / -825 50 / -775 Weight last 48 hrs Weight 73.527 kg Weight 72.121 kg Weight 73.964 kg Weight 75.013 kg Physical Exam 2 Narrative: General: No acute distress, AO x3, sick appearing, communicates in soft speech HEENT: PERRLA, pupils bilaterally equal and reactive Chest: Normal vesicular breath sounds, Coarse crackles bilaterally more on the left zone than right lower zone CVS: S1-S2 regular, no murmurs, no tachycardia, no gallops, no rubs Abdomen: Soft, nontender, no organomegaly, bowel sounds present Neuro: No focal deficits, no facial deformity, AO x3, power 5/5 in all limbs Data 11/14/23 04:39 11/14/23 04:39 Micro: Microbiology 11/12/23 10:30 Gram Stain - Final Sputum - Expectorated Sputum Sputum Culture - Final Aleksandra krusei 11/10/23 16:58 Gram Stain - Final Sputum - Expectorated Sputum Sputum Culture - Final Aleksandra krusei A&P Assessment and plan (1) Pneumonia: Concerns for aspiration pneumonia. Patient has been taking orally till 2 weeks ago. Patient is immunocompromised. Failure of outpatient treatment. Respiratory viral panel negative. CTA negative for pulmonary embolism but consistent with left lower lobe pneumonia. Urine Legionella, bacterial antigen negative. MRSA swab negative. Sputum culture growing Aleksandra. Will ask lab to send for further extremities. Blood culture pending. Further workup for atypical pneumonia given patient being on Keytruda including blastomycosis, histoplasma, coccidiomycosis, cryptococcus pending. Continue with IV Zosyn. Stop azithromycin as patient has finished 3-day course of antibiotics. Continue with Pulmicort twice daily, ipratropium, Xopenex every 4 hour. Patient is having extreme amount of secretions. Will try with a patch of scopolamine. Keep n.p.o. for now. Will plan to start tube feeds through pump tomorrow. IV Lasix 20 mg one-time. (2) Hypoxia: Oxygen supplementation keeping saturation over 90%. Nebulization as above. 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 Post chemoradiation therapy. Last chemotherapy in August 2023. (4) Port-A-Cath in place: (5) S/P percutaneous endoscopic gastrostomy (PEG) tube placement: (6) Hypothyroidism: Appreciate TSH. Restart home dose of levothyroxine. (7) Aleksandra infection, oral: Nystatin swish and swallow. Fluconazole 200 mg oral daily for next 7 days. (8) Protein malnutrition: (9) Immunocompromised: (10) Failure of outpatient treatment: Plan High blood pressure: No documented history of hypertension. Goal blood pressure less than 140/90 mmHg. Continue with metoprolol 25 mg twice daily. Blood pressures and heart rate better controlled. CODE STATUS: Discussed in detail with the patient. Full code. will be the DPOA. NPO. Plan to start on tube feeds through pump today. Plan to start at 20 cc an hour and increase 10 cc every 6 hours. Goal of 50 cc/h. As per dietitian goal should be 70 cc but given concerns for aspiration will keep on lower rate for now. Protonix for PUD prophylaxis Heparin 5000 every 12 hourly for DVT prophylaxis. Plan for the day: Continue with current IV antibiotics. Follow-up cultures. Sputum culture consistent with Aleksandra Krusei. Continue with fluconazole. Continue with aggressive pulmonary toilet with incentive spirometry and flutter valve. Out of bed to chair. Continue to wean oxygen supplementation keeping saturation over 88%. Repeat IV Lasix 20 mg one-time today. Continue to monitor renal functions daily. Start on tube feeds today. Remove scopolamine patch as patient is nauseated. Will add Biotene mouth lubricant. Treatment plan discussed in detail with patient at bedside and with over the phone. All the questions were answered. 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
[2023-11-14] MEDS: pantoprazole 40 mg SDV IVP (17:30)
[2023-11-15] VITALS (19 sets, daily range): BP systolic 99–111; BP diastolic 63–79; PULSE 70–93; RESP 16–18; TEMP 36.5–37; O2SAT 86–95
--- NOTE | 2023-11-15 00:35 | PC.NURSE ---
Pt residual checked, 0 ml. Jevity increased to 40 ml/hr per orders.
[2023-11-15] MEDS: piperacillin-tazobactam 3.375 GM in sodium chloride 0.9% (plus) 50 ML IV ×3 (02:18→18:46)
[2023-11-15] MEDS: ipratropium-albuterol 3 mL Neb INHALATION ×5 (03:52→19:42)
[2023-11-15] MEDS: heparin 5,000 unit/mL INJ 1 mL 5000 UNIT SUBCUT ×2 (04:03→16:32)
[2023-11-15] MEDS: morphine 4 mg/mL SDV 1 mL 2 MG IVP ×2 (04:54→18:43)
[2023-11-15 05:06] LABS: Basophils # 0.1 10^3/uL (0.0-0.1); Basophils % 0.6 %; Eosinophils # 0.1 10^3/uL (0.0-0.8); Lymphocytes # 0.9 10^3/uL (0.8-4.8); Lymphocytes % 8.1 %; Mean Corpuscular HGB Conc 31.3 g/dL (30-55); Mean Corpuscular Hemoglobin 28.3 pg (27-33); Mean Corpuscular Volume 90.5 fl (82-101); Mean Platelet Volume 8.4 fL (7.4-10.4); Monocytes # 0.9 10^3/uL (0.2-0.9); Monocytes % 8.2 %; Neutrophils # 9.03 10^3/uL (1.8-7.7); Neutrophils % 80.8 %; Nucleated Red Blood Cells % 0 %; Platelet Count 552 10^3/cmm (157-399); Red Blood Count 4.31 10^6/uL (3.85-5.65); Red Cell Distribution Width 14.2 % (12.1-15.1); White Blood Count 11.18 10^3/uL (3.29-11.43)
[2023-11-15] MEDS: ondansetron 2 mg/ML SDV 2 mL 4 MG IVP ×2 (05:29→18:44)
[2023-11-15 05:49] LABS: Alanine Aminotransferase 13 U/L (0-41); Albumin Level 2.6 g/dL (3.5-5.2); Alkaline Phosphatase 55 U/L (40-130); Anion Gap 12.9 (5-19); Aspartate Amino Transferase 20 U/L (0-40); Blood Urea Nitrogen 24 mg/dL (8-23); Calcium 9.3 mg/dL (8.5-10.5); Carbon Dioxide 34 mmol/L (22-29); Chloride 92 mmol/L (98-107); Creatinine Clr Calc Pharmacy 77.1555; Globulin 4.5 g/dL (1.3-4.6); Glomerular Filtration Rate 68.1 mL/min (90-130); Glucose 159 mg/dL (65-115); Osmolality Calculated 287 mOsm/kg (285-295); Potassium 3.9 mmol/L (3.5-5.1); Sodium 135 mmol/L (136-145); Total Bilirubin 0.3 mg/dL (0.15-1.2); Total Protein 7.1 g/dL (6.6-8.7)
[2023-11-15] MEDS: budesonide 0.5 mg/2 mL Neb INHALATION ×2 (08:17→19:42)
[2023-11-15] MEDS: thyroid 60 mg Tablet 180 MG PO (08:40)
[2023-11-15] MEDS: fluconazole 100 mg Tablet 200 MG PO (08:40)
[2023-11-15] MEDS: acetaminophen 325 mg Tablet 650 MG PO ×2 (08:40→21:39)
[2023-11-15] MEDS: metoprolol tartrate 25 mg Tablet PO ×2 (08:41→21:40)
--- NOTE | 2023-11-15 10:47 | PC.NUTR ---
Consult received for PEG tube feeding. Current recommendation per MD: Jevity 1.5 beginning @ 20 mls/hr, increasing 10 mls Q6H as tolerated until goal rate of 50 mls/hr reached with FWF 100mls Q6H. When medically appropriate recommend consideration of advancing to Jevity 1.5 goal rate of 70 mls/hr with FWF 100mls Q6H to better meet estimated protein and calorie needs of Pt. Details in RD assessment.
--- NOTE | 2023-11-15 11:13 | XRR_ITS ---
PROCEDURE INFORMATION: Exam: XR Chest Exam date and time: 11/15/2023 12:15 PM Age: 63 years old Clinical indication: Condition or disease; Lung condition and disease; Pneumonia; Lobar; Additional info: Pna TECHNIQUE: Imaging protocol: Radiologic exam of the chest. Views: 1 view. COMPARISON: CT angio chest PE protcl [id number] 11/10/2023 10:33 PM FINDINGS: Tubes, catheters and devices: Unchanged position of left subclavian port Lungs: Improving [id number]-left lung opacities. Pleural spaces: No pleural effusion. No pneumothorax. Heart/Mediastinum: No cardiomegaly. Bones/joints: No acute findings. XR/XR chest 1V portable [id number] IMPRESSION: Improving fqpah-[id number]-[id number]-left lung opacities.
[2023-11-15] MEDS: magnesium hydroxide 30 mL UDC PO (12:41)
--- NOTE | 2023-11-15 13:55 | P.PN_ITS ---
Subjective 2 Subjective: No acute vents overnight. Today morning patient seen laying comfortably in bed on 5 L of high flow nasal cannula. States he is feeling better today. Denies any nausea, ting, headache. Tolerating tube feeds well at 50 cc/h. Holding complaining of mild fullness. Vitals/I&O/Wt Last Vital Signs Temp 98.6 F 11/15/23 12:00 Pulse 90 11/15/23 12:00 Resp 16 11/15/23 12:00 BP 109/79 11/15/23 12:00 Pulse Ox 92 11/15/23 12:00 O2 Del Method Nasal Cannula 11/15/23 12:00 O2 Flow Rate 6 11/15/23 11:07 FiO2 47 11/14/23 11:16 11/14/23 11/15/23 11/15/23 22:59 06:59 14:59 Intake Total 100 / 100 580 / 680 Output Total 325 / 1150 550 / 1700 Balance -225 / -1050 30 / -1020 Weight last 48 hrs Weight 72.121 kg Weight 73.527 kg Weight 72.121 kg Physical Exam 2 Narrative: General: No acute distress, AO x3, sick appearing, communicates in soft speech HEENT: PERRLA, pupils bilaterally equal and reactive Chest: Normal vesicular breath sounds, Coarse crackles bilaterally more on the left zone than right lower zone CVS: S1-S2 regular, no murmurs, no tachycardia, no gallops, no rubs Abdomen: Soft, nontender, no organomegaly, bowel sounds present Neuro: No focal deficits, no facial deformity, AO x3, power 5/5 in all limbs Data 11/15/23 04:52 11/15/23 04:52 A&P Assessment and plan (1) Pneumonia: Concerns for aspiration pneumonia. Patient has been taking orally till 2 weeks ago. Patient is immunocompromised. Failure of outpatient treatment. Respiratory viral panel negative. CTA negative for pulmonary embolism but consistent with left lower lobe pneumonia. Urine Legionella, bacterial antigen negative. MRSA swab negative. Sputum culture growing Aleksandra. Will ask lab to send for further extremities. Blood culture pending. Further workup for atypical pneumonia given patient being on Keytruda including blastomycosis, histoplasma, coccidiomycosis, cryptococcus pending. Continue with IV Zosyn. Stop azithromycin as patient has finished 3-day course of antibiotics. Continue with Pulmicort twice daily, ipratropium, Xopenex every 4 hour. Patient is having extreme amount of secretions. Will try with a patch of scopolamine. Keep n.p.o. for now. Will plan to start tube feeds through pump tomorrow. IV Lasix 20 mg one-time. (2) Hypoxia: Oxygen supplementation keeping saturation over 90%. Nebulization as above. 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 Post chemoradiation therapy. Last chemotherapy in August 2023. (4) Port-A-Cath in place: (5) S/P percutaneous endoscopic gastrostomy (PEG) tube placement: (6) Hypothyroidism: Appreciate TSH. Restart home dose of levothyroxine. (7) Aleksandra infection, oral: Nystatin swish and swallow. Fluconazole 200 mg oral daily for next 7 days. (8) Protein malnutrition: (9) Immunocompromised: (10) Failure of outpatient treatment: Plan High blood pressure: No documented history of hypertension. Goal blood pressure less than 140/90 mmHg. Continue with metoprolol 25 mg twice daily. Blood pressures and heart rate better controlled. CODE STATUS: Discussed in detail with the patient. Full code. will be the DPOA. NPO. Plan to start on tube feeds through pump today. Plan to start at 20 cc an hour and increase 10 cc every 6 hours. Goal of 50 cc/h. As per dietitian goal should be 70 cc but given concerns for aspiration will keep on lower rate for now. Protonix for PUD prophylaxis Heparin 5000 every 12 hourly for DVT prophylaxis. Plan for the day: Patient continues to improve. Continue with current IV antibiotics and fluconazole. Continue to wean oxygen supplementation keeping saturation over 88%. Continue with extensive pulmonary toilet. Out of bed to chair. Hold off on Lasix today. Continue with tube feeds at 50 cc/h. Will not increase further. Watch for nausea, vomiting or fullness. Patient has not had a bowel movement since few days. Will give milk of magnesia. Repeat chest x-ray. Treatment plan discussed in detail with patient at bedside and with over the phone. All the questions were answered. 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
[2023-11-15] MEDS: pantoprazole 40 mg SDV IVP (16:32)
[2023-11-16] VITALS (18 sets, daily range): BP systolic 95–110; BP diastolic 59–74; PULSE 67–87; RESP 16–22; TEMP 36.3–36.9; O2SAT 89–95; BMI 22.2
[2023-11-16] MEDS: ipratropium-albuterol 3 mL Neb INHALATION ×7 (00:27→23:32)
[2023-11-16] MEDS: piperacillin-tazobactam 3.375 GM in sodium chloride 0.9% (plus) 50 ML IV ×3 (03:42→18:30)
[2023-11-16] MEDS: heparin 5,000 unit/mL INJ 1 mL 5000 UNIT SUBCUT ×2 (03:43→16:43)
[2023-11-16 07:25] LABS: Basophils # 0.1 10^3/uL (0.0-0.1); Basophils % 0.5 %; Eosinophils # 0.2 10^3/uL (0.0-0.8); Eosinophils % 2.1 %; Hematocrit 35.6 % (37-53); Lymphocytes # 0.8 10^3/uL (0.8-4.8); Lymphocytes % 7.9 %; Mean Corpuscular HGB Conc 31.2 g/dL (30-55); Mean Corpuscular Hemoglobin 27.9 pg (27-33); Mean Corpuscular Volume 89.4 fl (82-101); Mean Platelet Volume 8.6 fL (7.4-10.4); Monocytes # 0.7 10^3/uL (0.2-0.9); Monocytes % 7.2 %; Neutrophils # 7.96 10^3/uL (1.8-7.7); Neutrophils % 81.4 %; Nucleated Red Blood Cells % 0 %; Platelet Count 531 10^3/cmm (157-399); Red Blood Count 3.98 10^6/uL (3.85-5.65); Red Cell Distribution Width 14.1 % (12.1-15.1); White Blood Count 9.78 10^3/uL (3.29-11.43)
[2023-11-16 07:58] LABS: Alanine Aminotransferase 17 U/L (0-41); Albumin Level 2.4 g/dL (3.5-5.2); Alkaline Phosphatase 51 U/L (40-130); Anion Gap 10.8 (5-19); Aspartate Amino Transferase 18 U/L (0-40); Blood Urea Nitrogen 21 mg/dL (8-23); Calcium 8.6 mg/dL (8.5-10.5); Carbon Dioxide 36 mmol/L (22-29); Chloride 92 mmol/L (98-107); Creatinine Clr Calc Pharmacy 95.6948; Globulin 4.3 g/dL (1.3-4.6); Glomerular Filtration Rate 85.8 mL/min (90-130); Glucose 170 mg/dL (65-115); Osmolality Calculated 287 mOsm/kg (285-295); Potassium 3.8 mmol/L (3.5-5.1); Sodium 135 mmol/L (136-145); Total Bilirubin 0.2 mg/dL (0.15-1.2); Total Protein 6.7 g/dL (6.6-8.7)
[2023-11-16] MEDS: budesonide 0.5 mg/2 mL Neb INHALATION ×2 (08:18→20:57)
[2023-11-16] MEDS: magnesium hydroxide 30 mL UDC PO ×2 (09:50→16:43)
[2023-11-16] MEDS: ondansetron 2 mg/ML SDV 2 mL 4 MG IVP (09:50)
[2023-11-16] MEDS: metoprolol tartrate 25 mg Tablet PO ×2 (09:51→20:37)
[2023-11-16] MEDS: fluconazole 100 mg Tablet 200 MG PO (09:51)
[2023-11-16] MEDS: acetaminophen 325 mg Tablet 650 MG PO ×3 (09:51→20:37)
[2023-11-16] MEDS: thyroid 60 mg Tablet 180 MG PO (09:51)
--- NOTE | 2023-11-16 12:58 | PC.NURSE ---
Jevity 1.5
--- NOTE | 2023-11-16 13:58 | P.PN_ITS ---
Subjective 2 Subjective: No acute events overnight. Patient has remained hemodynamically stable and afebrile. Denies any nausea, vomiting, headache. He is down to 4 L of oxygen supplementation. Laying comfortably in bed. Able to tolerate 50 cc/h of tube feedings. Vitals/I&O/Wt Last Vital Signs Temp 97.5 F L 11/16/23 12:29 Pulse 70 11/16/23 12:29 Resp 19 H 11/16/23 12:29 BP 103/68 11/16/23 12:29 Pulse Ox 93 11/16/23 12:29 O2 Del Method Nasal Cannula 11/16/23 12:29 O2 Flow Rate 4 11/16/23 11:22 FiO2 47 11/14/23 11:16 11/15/23 11/16/23 11/16/23 21:59 06:59 14:59 Intake Total 1914 Output Total Balance 1914 Weight last 48 hrs Weight 76.385 kg Weight 76.385 kg Weight 75.795 kg Weight 72.121 kg Physical Exam 2 Narrative: General: No acute distress, AO x3, sick appearing, communicates in soft speech HEENT: PERRLA, pupils bilaterally equal and reactive Chest: Normal vesicular breath sounds, Coarse crackles bilaterally more on the left zone than right lower zone CVS: S1-S2 regular, no murmurs, no tachycardia, no gallops, no rubs Abdomen: Soft, nontender, no organomegaly, bowel sounds present Neuro: No focal deficits, no facial deformity, AO x3, power 5/5 in all limbs Data 11/16/23 06:51 11/16/23 06:51 Micro: Microbiology 11/10/23 20:55 Blood Culture - Final Blood NO GROWTH AFTER 5 DAYS 11/10/23 16:42 Blood Culture - Final Blood NO GROWTH AFTER 5 DAYS A&P Assessment and plan (1) Pneumonia: Concerns for aspiration pneumonia. Patient has been taking orally till 2 weeks ago. Patient is immunocompromised. Failure of outpatient treatment. Respiratory viral panel negative. CTA negative for pulmonary embolism but consistent with left lower lobe pneumonia. Urine Legionella, bacterial antigen negative. MRSA swab negative. Sputum culture growing Aleksandra. Will ask lab to send for further extremities. Blood culture pending. Further workup for atypical pneumonia given patient being on Keytruda including blastomycosis, histoplasma, coccidiomycosis, cryptococcus pending. Continue with IV Zosyn. Stop azithromycin as patient has finished 3-day course of antibiotics. Continue with Pulmicort twice daily, ipratropium, Xopenex every 4 hour. Patient is having extreme amount of secretions. Will try with a patch of scopolamine. Keep n.p.o. for now. Will plan to start tube feeds through pump tomorrow. IV Lasix 20 mg one-time. (2) Hypoxia: Oxygen supplementation keeping saturation over 90%. Nebulization as above. 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 Post chemoradiation therapy. Last chemotherapy in August 2023. (4) Port-A-Cath in place: (5) S/P percutaneous endoscopic gastrostomy (PEG) tube placement: (6) Hypothyroidism: Appreciate TSH. Restart home dose of levothyroxine. (7) Aleksandra infection, oral: Nystatin swish and swallow. Fluconazole 200 mg oral daily for next 7 days. (8) Protein malnutrition: (9) Immunocompromised: (10) Failure of outpatient treatment: Plan High blood pressure: No documented history of hypertension. Goal blood pressure less than 140/90 mmHg. Continue with metoprolol 25 mg twice daily. Blood pressures and heart rate better controlled. CODE STATUS: Discussed in detail with the patient. Full code. will be the DPOA. NPO. Plan to start on tube feeds through pump today. Plan to start at 20 cc an hour and increase 10 cc every 6 hours. Goal of 50 cc/h. As per dietitian goal should be 70 cc but given concerns for aspiration will keep on lower rate for now. Protonix for PUD prophylaxis Heparin 5000 every 12 hourly for DVT prophylaxis. Plan for the day: Continue to wean oxygen supplementation keeping saturation over 90%. Continue with current IV antibiotics and oral fluconazole. Last dose of medications on 10/20 to finish a 7-day course. As per podiatry recommendation patient should be at 70 cc/h of tube feeds to maintain nutrition. Has been able to tolerate 50 cc/h well. Patient wants to do nightly tube feedings every 12 hours. Will try to increase up to 70 cc/h today to see if patient has any residuals tube feeding. If able to tolerate can go home on 70 cc/h for 12 hours at night. If not able to tolerate will try at 60 cc/h. Otherwise patient will be discharged on 50 cc/h of tube feeds for 12 hours at night. Patient is to remain strict NPO. Aggressive bowel regimen. 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
[2023-11-16] MEDS: pantoprazole 40 mg SDV IVP (16:43)
[2023-11-16] MEDS: sennosides-docusate Tablet 2 TAB PO (16:43)
--- NOTE | 2023-11-16 18:43 | PC.NURSE ---
jevity 1.5
[2023-11-16] MEDS: morphine 4 mg/mL SDV 1 mL 2 MG IVP (22:08)
[2023-11-17] VITALS (11 sets, daily range): BP systolic 98–108; BP diastolic 60–84; PULSE 70–104; RESP 15–20; TEMP 36.2–36.4; O2SAT 92–96
[2023-11-17] MEDS: piperacillin-tazobactam 3.375 GM in sodium chloride 0.9% (plus) 50 ML IV ×3 (02:20→18:25)
[2023-11-17 03:16] LABS: Basophils % 0.4 %; Eosinophils # 0.3 10^3/uL (0.0-0.8); Eosinophils % 3.1 %; Hematocrit 34.4 % (37-53); Lymphocytes # 0.8 10^3/uL (0.8-4.8); Lymphocytes % 10.1 %; Mean Corpuscular HGB Conc 30.8 g/dL (30-55); Mean Corpuscular Hemoglobin 27.5 pg (27-33); Mean Corpuscular Volume 89.1 fl (82-101); Mean Platelet Volume 8.5 fL (7.4-10.4); Monocytes # 0.7 10^3/uL (0.2-0.9); Neutrophils # 6.44 10^3/uL (1.8-7.7); Neutrophils % 77.6 %; Nucleated Red Blood Cells % 0 %; Platelet Count 521 10^3/cmm (157-399); Red Blood Count 3.86 10^6/uL (3.85-5.65); Red Cell Distribution Width 14.3 % (12.1-15.1)
[2023-11-17 03:54] LABS: Alanine Aminotransferase 15 U/L (0-41); Albumin Level 2.6 g/dL (3.5-5.2); Alkaline Phosphatase 47 U/L (40-130); Anion Gap 11.2 (5-19); Aspartate Amino Transferase 18 U/L (0-40); Blood Urea Nitrogen 22 mg/dL (8-23); Calcium 8.8 mg/dL (8.5-10.5); Carbon Dioxide 35 mmol/L (22-29); Chloride 93 mmol/L (98-107); Creatinine Clr Calc Pharmacy 95.6948; Globulin 3.8 g/dL (1.3-4.6); Glomerular Filtration Rate 85.8 mL/min (90-130); Glucose 165 mg/dL (65-115); Osmolality Calculated 287 mOsm/kg (285-295); Potassium 4.2 mmol/L (3.5-5.1); Sodium 135 mmol/L (136-145); Total Bilirubin 0.2 mg/dL (0.15-1.2); Total Protein 6.4 g/dL (6.6-8.7)
[2023-11-17] MEDS: heparin 5,000 unit/mL INJ 1 mL 5000 UNIT SUBCUT ×2 (04:19→16:51)
[2023-11-17] MEDS: ondansetron 2 mg/ML SDV 2 mL 4 MG IVP ×2 (06:51→16:51)
[2023-11-17] MEDS: budesonide 0.5 mg/2 mL Neb INHALATION ×2 (07:16→19:50)
[2023-11-17] MEDS: ipratropium-albuterol 3 mL Neb INHALATION ×4 (07:16→23:56)
[2023-11-17] MEDS: thyroid 60 mg Tablet 180 MG PO (08:12)
[2023-11-17] MEDS: fluconazole 100 mg Tablet 200 MG PO (08:12)
[2023-11-17] MEDS: acetaminophen 325 mg Tablet 650 MG PO ×2 (08:12→21:06)
[2023-11-17] MEDS: metoprolol tartrate 25 mg Tablet PO ×2 (08:13→21:06)
--- NOTE | 2023-11-17 13:26 | PC.NUTR ---
Trial EN formula change via open system following RD recs below. formula left at bedside -TwoCal HN @ 60ml/hr x12hrs (1440kcals & 60g protein) -TwoCal HN @ 120ml x 4x daily (960 kcals & 40g protein) -FWF @120 ml q4 See most recent RD note for details
--- NOTE | 2023-11-17 15:42 | PM.PN ---
Subjective Subjective: States he is doing okay today. No vomiting or regurgitation today. Vitals/I&O/Wt Last Vital Signs Temp 97.1 F L 11/17/23 11:32 Pulse 70 11/17/23 11:32 Resp 18 11/17/23 11:32 BP 104/67 11/17/23 11:32 Pulse Ox 95 11/17/23 11:32 O2 Del Method Nasal Cannula 11/17/23 11:32 O2 Flow Rate 5 11/17/23 11:24 FiO2 47 11/14/23 11:16 11/17/23 11/17/23 11/17/23 06:59 14:59 22:59 Intake Total 968 / 3543 Output Total 1125 / 1725 300 / 300 Balance -157 / 1818 -300 / -300 Weight last 48 hrs Weight 75.07 kg Weight 75.931 kg Weight 76.385 kg Weight 76.385 kg Physical Exam Const: COMMON NORMALS: patient oriented x3 and alert GENERAL APPEARANCE: cooperative ORIENTATION/CONSCIOUSNESS: Yes awake HENMT: COMMON NORMALS: oropharynx normal Neck/C-Spine: COMMON NORMALS: no JVD Resp: COMMON NORMALS: normal respiratory effort and clear to auscultation bilaterally AUSCULTATION: clear to auscultation bilaterally Cardio: COMMON NORMALS: no JVD, regular rhythm, S1 normal heart sound present, S2 normal heart sound present and No murmurs present (Cardio) RHYTHM: regular rhythm HEART SOUNDS: S1 normal heart sound present and S2 normal heart sound present GI: COMMON NORMALS: Normal to inspection, nondistended, normoactive bowel sounds present, Soft to palpation and non-tender PALPATION: Yes Soft to palpation OTHER: No redness or drainage around PEG insertion site. Extremity: COMMON NORMALS: no joint enlargement and no pedal edema Neuro: COMMON NORMALS: patient oriented x3 and moves all extremities SENSORIUM/ORIENTATION: Yes alert Skin: COMMON NORMALS: no rashes or lesions noted GENERAL SKIN EXAM: no rashes or lesions noted Data 11/17/23 02:39 11/17/23 02:39 A&P Assessment and plan (1) Pneumonia: Reviewed vitals, CBC, blood culture, sputum culture. Continue treatment with Diflucan. Continues on Zosyn empirically. Repeat BMP. Follow-up final culture results. Continue oxygen support, wean down as tolerating. Reviewed chest x-ray 11/14. Repeat CBC. Will likely need oxygen at discharge. Discussed with bilingual case manager. Concerns for aspiration pneumonia. Patient has been taking orally till 2 weeks ago. Patient is immunocompromised. Failure of outpatient treatment. Respiratory viral panel negative. CTA negative for pulmonary embolism but consistent with left lower lobe pneumonia. Urine Legionella, bacterial antigen negative. MRSA swab negative. Further workup for atypical pneumonia given patient being on Keytruda including blastomycosis, histoplasma, coccidiomycosis, cryptococcus pending. Continue with Pulmicort twice daily, ipratropium, Xopenex every 4 hour. Patient is having extreme amount of secretions. Will try with a patch of scopolamine. Keep n.p.o. Trial of tube feeds, with risk of aspiration, monitor in the hospital with trial. Discussed with scientific informatics project leader, at the moment not meeting nutritional needs. Concerned that increasing rate may further increase risk of aspiration. Discussed trial of more concentrated formula, risk of diarrhea. (2) Hypoxia: Oxygen supplementation keeping saturation over 90%. Nebulization as above. 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 Post chemoradiation therapy. Last chemotherapy in August 2023. (4) Port-A-Cath in place: (5) S/P percutaneous endoscopic gastrostomy (PEG) tube placement: (6) Hypothyroidism: Appreciate TSH. Restart home dose of levothyroxine. (7) Aleksandra infection, oral: Nystatin swish and swallow. Fluconazole 200 mg oral daily for next 7 days. (8) Protein malnutrition: (9) Immunocompromised: (10) Failure of outpatient treatment: Plan High blood pressure: Blood pressure soft, 99/64. Decrease metoprolol to 12.5 mg CODE STATUS: Full code. Attestations Medical Necessity Statement*: Continue admission for assessment management of pneumonia with hypoxia, aspiration, and gentleman with immunocompromise, tube feeding. 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
[2023-11-17] MEDS: pantoprazole 40 mg SDV IVP (16:51)
[2023-11-17 18:14] LABS: Fungitell 1-3-B Glucan Assay 37 pg/mL; Interpretation NEGATIVE
[2023-11-18] VITALS (9 sets, daily range): BP systolic 94–122; BP diastolic 65–68; PULSE 66–90; RESP 16–18; TEMP 36.4–36.7; O2SAT 86–97
[2023-11-18] MEDS: piperacillin-tazobactam 3.375 GM in sodium chloride 0.9% (plus) 50 ML IV (01:42)
--- NOTE | 2023-11-18 02:38 | PC.NURSE ---
Feeding pump tubing changed at 0235 with water and two ayaz hung and running at ordered rates, dosages, and frequencies. No residual was noted prior to new administration. Pt verbalized understanding and all questions answered.
[2023-11-18] MEDS: ipratropium-albuterol 3 mL Neb INHALATION ×3 (03:35→11:29)
[2023-11-18] MEDS: heparin 5,000 unit/mL INJ 1 mL 5000 UNIT SUBCUT (03:38)
[2023-11-18] MEDS: ondansetron 2 mg/ML SDV 2 mL 4 MG IVP (03:38)
[2023-11-18 05:54] LABS: Basophils # 0.1 10^3/uL (0.0-0.1); Basophils % 0.6 %; Eosinophils # 0.3 10^3/uL (0.0-0.8); Eosinophils % 3.8 %; Hematocrit 34.3 % (37-53); Lymphocytes # 0.8 10^3/uL (0.8-4.8); Lymphocytes % 9.2 %; Mean Corpuscular HGB Conc 31.2 g/dL (30-55); Mean Corpuscular Hemoglobin 27.9 pg (27-33); Mean Corpuscular Volume 89.6 fl (82-101); Mean Platelet Volume 8.6 fL (7.4-10.4); Monocytes # 0.7 10^3/uL (0.2-0.9); Monocytes % 7.6 %; Neutrophils # 6.83 10^3/uL (1.8-7.7); Nucleated Red Blood Cells % 0 %; Platelet Count 559 10^3/cmm (157-399); Red Blood Count 3.83 10^6/uL (3.85-5.65); Red Cell Distribution Width 14.5 % (12.1-15.1); White Blood Count 8.74 10^3/uL (3.29-11.43)
[2023-11-18 06:19] LABS: Anion Gap 12.5 (5-19); Blood Urea Nitrogen 20 mg/dL (8-23); Calcium 8.7 mg/dL (8.5-10.5); Carbon Dioxide 32 mmol/L (22-29); Chloride 94 mmol/L (98-107); Creatinine Clr Calc Pharmacy 94.9429; Glomerular Filtration Rate 85.8 mL/min (90-130); Glucose 183 mg/dL (65-115); Osmolality Calculated 285 mOsm/kg (285-295); Potassium 4.5 mmol/L (3.5-5.1); Sodium 134 mmol/L (136-145)
[2023-11-18] MEDS: budesonide 0.5 mg/2 mL Neb INHALATION (08:12)
[2023-11-18] MEDS: metoprolol tartrate 25 mg Tablet 12.5 MG PO (08:24)
[2023-11-18] MEDS: acetaminophen 325 mg Tablet 650 MG PO (08:24)
[2023-11-18] MEDS: fluconazole 100 mg Tablet 200 MG PO (08:24)
[2023-11-18] MEDS: thyroid 60 mg Tablet 180 MG PO (08:24)
--- NOTE | 2023-11-18 09:26 | XRR_ITS ---
PROCEDURE INFORMATION: Exam: XR Chest Exam date and time: 11/18/2023 10:21 AM Age: 63 years old Clinical indication: Dyspnea and shortness of breath; Prior surgery; Surgery date: 6+ months; Surgery type: Port; Additional info: Hypoxia TECHNIQUE: Imaging protocol: Radiologic exam of the chest. Views: 1 view. COMPARISON: CR (CHEST, ) 11/15/2023 12:15 PM FINDINGS: Tubes, catheters and devices: Unchanged appearance of left chest port. Its tip extends cephalad into the inferior portion of the right internal jugular vein. Lungs: Unchanged bilateral pulmonary abnormalities. Again, this is greater on the right. Pleural spaces: Unremarkable. No pleural effusion. No pneumothorax. Heart/Mediastinum: Unremarkable. No cardiomegaly. Bones/joints: Unchanged mild scoliosis. Otherwise, unremarkable. XR/XR chest 1V portable [id number] IMPRESSION: 1. Unchanged appearance of bilateral lung opacities. 2. Unchanged appearance of left chest port.
--- NOTE | 2023-11-18 12:14 | P.DS_ITS ---
Discharge Providers Date of Admission: 11/10/23 15:47 Date of Discharge: November 18, 2023 Attending Provider at Admission: Pete Sharp MD Attending Provider at Discharge: Jordan Barker Primary Care Provider: Bella Ledesma MD Diagnoses at Discharge Discharge Diagnosis (1) Pneumonia: Status: Acute (2) Hypoxia: Status: Acute (3) Malignant neoplasm of overlapping sites of tonsil: Status: Acute (4) Port-A-Cath in place: Status: Acute Permanent problem details: 04/23/23 Dr Baer (5) S/P percutaneous endoscopic gastrostomy (PEG) tube placement: Status: Acute (6) Hypothyroidism: Status: Acute (7) Aleksandra infection, oral: Status: Acute (8) Protein malnutrition: Status: Acute (9) Immunocompromised: Status: Acute (10) Failure of outpatient treatment: Status: Acute Reason for Visit Reason for Visit: pneumonia respiratory distress Brief History: Tk Ledesma is a 63 year old male with past medical history of squamous cell carcinoma of the tonsil, 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 As the symptoms did not improve he presented back to his outpatient oncologist who requested for direct admit. Patient has been complaining of cough which has been getting worse for last 2 months more acutely last 2 weeks along with high-grade fever up to 10 2-1 03 for last 2 weeks as well. Patient has a sick contact in son. Patient has been complaining of difficulty in breathing only with cough and runny nose. Denies any nausea, vomiting, headache. Hospital Course Hospital Course Was admitted and treated for respiratory failure with aspiration pneumonia, significant pneumonitis on lung imaging, requiring up to 80% heated high flow on presentation. Was treated with Zosyn, oxygen support gradually weaned down. Sputum cultures eventually also grew Aleksandra species, which he received Diflucan. At home he was taking oral intake and over the last 2 weeks is also started on PEG tube feeds. Oral intake was stopped with concern for aspiration, tube feeds were restarted. 2 lower chance of the aspiration was additionally assessed by registered dietitian, trialed on TwoCal which she has been tolerating so far with recommendation for 12 hours of infusion overnight at 60 mill per hour as well as 120 mL 4 times daily. Free water flushes 120 mL every 4 hours. Monitor for any developing diarrhea or intolerance. Zofran as needed for nausea, Reglan as needed for motility. Studies were also sent for atypical bugs including histoplasma, coccidial and to coccus due to immunocompromise with Keytruda. QuantiFERON was checked and was intermediate. Sputum cultures otherwise without bacterial growth. AFB were requested but looks like did not get collected. He otherwise has continued to gradually improve. Subjectively feeling much better and wants to return home. Oxygen supplementation set up for continued recovery at home along with nebulizer treatments. He knows to follow-up and otherwise seek medical attention in case of any worsening or new concerning symptoms. With acute transient blood pressure elevations he was also started on low-dose metoprolol 12.5 mg twice daily. Consider discontinuing NSAIDs. Physical Exam Const: COMMON NORMALS: patient oriented x3 and alert GENERAL APPEARANCE: cooperative ORIENTATION/CONSCIOUSNESS: Yes awake HENMT: COMMON NORMALS: oropharynx normal Neck/C-Spine: COMMON NORMALS: no JVD Resp: COMMON NORMALS: normal respiratory effort and clear to auscultation bilaterally AUSCULTATION: clear to auscultation bilaterally Cardio: COMMON NORMALS: no JVD, regular rhythm, S1 normal heart sound present, S2 normal heart sound present and No murmurs present (Cardio) RHYTHM: regular rhythm HEART SOUNDS: S1 normal heart sound present and S2 normal heart sound present GI: COMMON NORMALS: Normal to inspection, nondistended, normoactive bowel sounds present, Soft to palpation and non-tender PALPATION: Yes Soft to palpation OTHER: No redness or drainage around PEG insertion site. Extremity: COMMON NORMALS: no joint enlargement and no pedal edema Neuro: COMMON NORMALS: patient oriented x3 and moves all extremities SENSORIUM/ORIENTATION: Yes alert Skin: COMMON NORMALS: no rashes or lesions noted GENERAL SKIN EXAM: no rashes or lesions noted Discharge Data Studies Completed and Pending Completed Studies During Hospitalization Category Date Time Status CTA chest [CT angio chest PE protcl [id number]] Routine Cat Scan 11/10/23 22:02 Completed CXRP [XR chest 1V portable [id number]] Routine Exams 11/18/23 09:26 Completed XR chest 1V portable [id number] Routine Exams 11/15/23 11:13 Completed Pending at discharge Category Date Time Status AFB [Mycobacteria, Culture w/Fluor] Q4H Lab 11/15/23 11:12 Uncollected AFB [Mycobacteria, Culture w/Fluor] Q4H Lab 11/15/23 15:12 Uncollected AFB [Mycobacteria, Culture w/Fluor] Q4H Lab 11/15/23 19:12 Uncollected BLASTOMYCES AG [MVista Blastomyces AG Quant] Routine Lab 11/12/23 15:32 Results Basic Metabolic Panel AM LABS Lab 11/19/23 04:00 Ordered Basic Metabolic Panel AM LABS Lab 11/20/23 04:00 Ordered Blastomyces AB Panel CF and ID Routine Lab 11/12/23 15:32 Results Coccidioides AB CF Serum Routine Lab 11/12/23 15:32 Results Complete Blood Count w/Auto AM LABS Lab 11/19/23 04:00 Ordered Complete Blood Count w/Auto AM LABS Lab 11/20/23 04:00 Ordered Cryptococcal Antigen w/ Reflex Routine Lab 11/12/23 15:32 Results Fungitell Glucan Assay (Blood) Routine Lab 11/12/23 15:32 Results Histoplasma Antibody Immunodif Routine Lab 11/12/23 15:32 Results Histoplasma Galactomannan Ag Routine Lab 11/12/23 17:00 Received Histoplasma Quantitative AG Routine Lab 11/12/23 15:32 Received Radiology Impressions Chest CTA 11/10/23 22:02 IMPRESSION: 1. No evidence pulmonary embolism to the segmental level. Left lower lobe subsegmental pulmonary emboli difficult to exclude. No definitive emboli are identified. 2. Enlarging mediastinal and hilar lymph nodes. 3. Marked progression of pulmonary disease is nonspecific and may represent progression of neoplastic and/or infectious etiology. Chest X-Ray 11/18/23 09:26 IMPRESSION: 1. Unchanged appearance of bilateral lung opacities. 2. Unchanged appearance of left chest port. Laboratory Results WBC 8.74 10^3/uL (3.29-11.43) 11/18/23 04:52 RBC 3.83 10^6/uL (3.85-5.65) L 11/18/23 04:52 Hgb 10.70 g/dL (11.27-16.99) L 11/18/23 04:52 Hct 34.3 % (37-53) L 11/18/23 04:52 MCV 89.6 fl (82-101) 11/18/23 04:52 MCH 27.9 pg (27-33) 11/18/23 04:52 MCHC 31.2 g/dL (30-55) 11/18/23 04:52 RDW 14.5 % (12.1-15.1) 11/18/23 04:52 Plt Count 559 10^3/cmm (157-399) H 11/18/23 04:52 MPV 8.6 fL (7.4-10.4) 11/18/23 04:52 Neut % (Auto) 78.0 % 11/18/23 04:52 Lymph % (Auto) 9.2 % 11/18/23 04:52 [place] % (Auto) 7.6 % 11/18/23 04:52 Eos % (Auto) 3.8 % 11/18/23 04:52 Baso % (Auto) 0.6 % 11/18/23 04:52 Neut # (Auto) 6.83 10^3/uL (1.8-7.7) 11/18/23 04:52 Lymph # (Auto) 0.8 10^3/uL (0.8-4.8) 11/18/23 04:52 [place] # (Auto) 0.7 10^3/uL (0.2-0.9) 11/18/23 04:52 Eos # (Auto) 0.3 10^3/uL (0.0-0.8) 11/18/23 04:52 Baso # (Auto) 0.1 10^3/uL (0.0-0.1) 11/18/23 04:52 Nucleated RBC % (auto) 0 % 11/18/23 04:52 Nucleated RBCs # 0.0 /100WBC 11/18/23 04:52 D-Dimer 1.23 ug/mLFEU (0-0.59) H 11/10/23 16:42 Sodium 134 mmol/L (136-145) L 11/18/23 04:52 Potassium 4.5 mmol/L (3.5-5.1) 11/18/23 04:52 Chloride 94 mmol/L (98-107) L 11/18/23 04:52 Carbon Dioxide 32 mmol/L (22-29) H 11/18/23 04:52 Anion Gap 12.5 (5-19) 11/18/23 04:52 BUN 20 mg/dL (8-23) 11/18/23 04:52 Creatinine 0.9 mg/dL (0.7-1.2) 11/18/23 04:52 GFR Calculation 85.8 mL/min (90-130) L 11/18/23 04:52 Glucose 183 mg/dL (65-115) H 11/18/23 04:52 Estimat Average Glucose 137 11/11/23 05:53 Hemoglobin A1c 6.4 % (4.0-6.0) H 11/11/23 05:53 Calculated Osmolality 285 mOsm/kg (285-295) 11/18/23 04:52 Calcium 8.7 mg/dL (8.5-10.5) 11/18/23 04:52 Phosphorus 4.4 mg/dL (2.5-4.5) 11/11/23 05:53 Magnesium 1.5 mg/dL (1.7-2.3) L 11/11/23 05:53 Iron 10 ug/dL (59-158) L 11/10/23 16:42 TIBC 147 mcg/dl 11/10/23 16:42 % Saturation 6.8 % (20-50) L 11/10/23 16:42 Unsat Iron Binding 137 ug/dL (112-347) 11/10/23 16:42 Total Bilirubin 0.2 mg/dL (0.15-1.2) 11/17/23 02:39 AST 18 U/L (0-40) 11/17/23 02:39 ALT 15 U/L (0-41) 11/17/23 02:39 Alkaline Phosphatase 47 U/L (40-130) 11/17/23 02:39 Total Protein 6.4 g/dL (6.6-8.7) L 11/17/23 02:39 Albumin 2.6 g/dL (3.5-5.2) L 11/17/23 02:39 Globulin 3.8 g/dL (1.3-4.6) 11/17/23 02:39 Triglycerides 112 mg/dL (0-150) 11/11/23 05:53 Cholesterol 77 mg/dL (0-200) 11/11/23 05:53 LDL Cholesterol, Calc 32 mg/dL (50-129) L 11/11/23 05:53 HDL Cholesterol 23 mg/dL (60-100) L 11/11/23 05:53 LDL/HDL Ratio 1.39 RATIO (0.00-3.22) 11/11/23 05:53 Cholesterol/HDL Ratio 3.35 mg/dL (1.0-5.00) 11/11/23 05:53 Vitamin B12 1389 pg/mL (232-1245) H 11/10/23 16:42 Folate > 20.0 ng/mL (4.5-32.2) 11/11/23 05:53 Procalcitonin 0.83 ng/mL (0-0.5) H 11/10/23 16:42 TSH 4.23 uIU/mL (0.27-4.20) H 11/10/23 16:42 Urine Color Yellow (Yellow) 11/10/23 20:20 Urine Appearance Clear (CLEAR) 11/10/23 20:20 Urine pH 5 (5-7) 11/10/23 20:20 Ur Specific [place] 1.015 (1.005-1.030) 11/10/23 20:20 Urine Protein Neg (Negative) 11/10/23 20:20 Urine Glucose (UA) Norm (Normal) 11/10/23 20:20 Urine Ketones Negative (Negative) 11/10/23 20:20 Urine Blood 2+ (Negative) H 11/10/23 20:20 Urine Nitrate Negative (Negative) 11/10/23 20:20 Urine Bilirubin Neg (Negative) 11/10/23 20:20 Urine Urobilinogen Norm mg/dL (Negative) 11/10/23 20:20 Ur Leukocyte Esterase Negative (Negative) 11/10/23 20:20 Urine RBC 5-10 /hpf (0-2) H 11/10/23 20:20 Urine WBC 0-4 /hpf (0-5) H 11/10/23 20:20 Ur Squamous Epith Cells 0-4 /hpf (0-5) H 11/10/23 20:20 Amorphous Sediment Not Reportable 11/10/23 20:20 Urine Bacteria Trace /hpf (NONE) 11/10/23 20:20 Adenovirus (PCR) Not detected (NOT DETECT) 11/10/23 19:55 C. pneumoniae DNA (PCR) Not detected (NOT DETECT) 11/10/23 19:55 Coronavirus 229E (PCR) Not detected (NOT DETECT) 11/10/23 19:55 Human Metapneumovir PCR Not detected (NOT DETECT) 11/10/23 19:55 Influenza A (H1) PCR Not detected (NOT DETECT) 11/10/23 19:55 Influ A (H1/09) PCR Not detected (NOT DETECT) 11/10/23 19:55 Influenza A (H3) PCR Not detected (NOT DETECT) 11/10/23 19:55 Influenza Type A (PCR) Not detected (NOT DETECT) 11/10/23 19:55 Influenza Type B (PCR) Not detected (NOT DETECT) 11/10/23 19:55 M. pneumoniae (PCR) Not detected (NOT DETECT) 11/10/23 19:55 Parainfluenza 1 (PCR) Not detected (NOT DETECT) 11/10/23 19:55 Parainfluenza 2 (PCR) Not detected (NOT DETECT) 11/10/23 19:55 Parainfluenza 3 (PCR) Not detected (NOT DETECT) 11/10/23 19:55 Parainfluenza 4 (PCR) Not detected (NOT DETECT) 11/10/23 19:55 RSV Type A (PCR) Not detected (NOT DETECT) 11/10/23 19:55 RSV Type B (PCR) Not detected (NOT DETECT) 11/10/23 19:55 Entero/Rhino (PCR) Not detected (NOT DETECT) 11/10/23 19:55 SARS-CoV-2 (PCR) Not detected (NOT DETECT) 11/10/23 19:55 MRSA (PCR) Not detected (NOT DETECTED) 11/10/23 22:30 TB (QFT) Gold In Tube Indeterminate (NEGATIVE) A 11/12/23 15:32 TB Test (QFT) Nil 0.02 IU/mL 11/12/23 15:32 TB Test (QFT) Mitogen 0.48 IU/mL 11/12/23 15:32 TB Test Mitogen - Nil <0.00 IU/mL 11/12/23 15:32 TB Test TB -Nil 0.00 IU/mL 11/12/23 15:32 Beta-(1,3)-D-Glucan 37 pg/mL 03/06/24 15:32 B-(1,3)-D-Glucan Intrp Negative 11/12/23 15:32 Vitals Last Vital Signs Temp 97.5 F L 11/18/23 08:00 Pulse 86 11/18/23 11:30 Resp 16 11/18/23 11:30 BP 100/65 11/18/23 08:00 Pulse Ox 93 11/18/23 11:30 O2 Del Method Nasal Cannula 11/18/23 11:30 O2 Flow Rate 4 11/18/23 11:30 FiO2 47 11/14/23 11:16 Discharge Plan Discharge Patient Disposition: Home Condition: Stable Prescriptions: New metoprolol tartrate 25 mg Tablet 12.5 mg PO BID@0900,2100 Qty: 90 0RF amoxicillin-pot clavulanate 250-62.5 mg/5 mL suspension for reconstitution 10 ml PO Q8H 2 Days Qty: 60 0RF ipratropium-albuterol 0.5 mg-3 mg(2.5 mg base)/3 mL solution for nebulization 3 ml inhalation Q8H PRN (Reason: shortness of breath or wheezing) Qty: 90 1RF fluconazole 40 mg/mL suspension for reconstitution 200 mg PO DAILY 2 Days Qty: 35 0RF Rx Instructions: administer on day 1 of therapy Continued [place] Thyroid 180 mg tablet 180 mg PO DAILY Qty: 30 0RF lorazepam 1 mg tablet 0.5 - 1 mg PO Q6H PRN (Reason: Severe Nausea) Qty: 30 3RF ondansetron 8 mg tablet,disintegrating 8 mg PO Q8H PRN (Reason: nausea and vomiting) Qty: 30 2RF (DME) Enteral Feeding Pump and supplies See Rx Instructions .Route .MEDSUPPLY Qty: 1 0RF Rx Instructions: As directed meloxicam 7.5 mg tablet 7.5 mg PO DAILY PRN (Reason: Pain) ibuprofen 200 mg tablet 200 mg PO Q6H PRN (Reason: Pain) acetaminophen 500 mg capsule 500 mg PO Q6H PRN (Reason: Pain) guaifenesin [Mucinex] 1,200 mg tablet extended release 12hr 1,200 mg PO .Q6HR metoclopramide HCl [Reglan] 10 mg tablet 10 mg PO QID PRN (Reason: nausea and vomiting) Qty: 120 0RF Rx Instructions: Before meals and at bedtime (DME) [employer] Feeding pump and supplies See Rx Instructions .Route .MEDSUPPLY Qty: 1 0RF Rx Instructions: As directed (DME) Booost plus See Rx Instructions .Route .MEDSUPPLY Qty: 240 6RF Rx Instructions: 8 cartons Boost Plus a day provides: 2880 kcals or 99% Pt's estimated calorie needs (which are 3111-1924 kcals or 35 to 40 kcals/kg) and 112 grams protein or 90% Pt's estimated protein needs (which are 100-125 grams protein or1.2 to 1.5 g/kg IBW). ergocalciferol (vitamin D2) 1,250 mcg (50,000 unit) capsule 1,250 mcg PO Q7D Rx Instructions: ON FRIDAY Discontinued cefdinir 250 mg/5 mL suspension for reconstitution 500 mg PO BID 14 Days Qty: 280 0RF fluconazole 40 mg/mL suspension for reconstitution 100 mg PO DAILY 14 Days Qty: 35 0RF Discharge Orders: Discharge Order (Routine); Ordered 11/18/23 Ordered By: Jordan Barker Other Ambulatory Orders: DME: Enteral Nutrition (Order) Location: None Selected Ordered By: Jordan Barker DME: Nebulizer with Neb Kit (Order) Location: None Selected Ordered By: Jordan Braker DME: Oxygen (Order) Location: None Selected Ordered By: Jordan Barker Referrals: [facility] [place] [Outside] Bella Ledesma MD [Primary Care Provider] - (We have notified your physician's clinic of the need for a follow-up appointment to be scheduled. If you have not heard from them within the next 2 business days, please call them directly. ) Discharge Diet: Start new tube feeds as directed Discharge Activity: Oxygen as instructed Patient Instructions: Metoprolol (By mouth), Ipratropium (By breathing), Amoxicillin/Clavulanate Potassium (By mouth), Fluconazole (By mouth), Aspiration Pneumonia (GEN), Pneumonia (GEN), Opioid Safety, Pneumonia Stoplight Activity Restrictions/Additional Instructions: Complete antibiotic and antifungal course for pneumonia, suspected aspiration pneumonia. Continue tube feeds as recommended by current group lab and gravity [facility] mL/h for 12 hours overnight as well as TwoCal HN 120 mL every four hours. Free water flushes 120 mL four times a day. Continue Zofran as needed for nausea and Reglan as needed to aid motility/transit through the upper GI tract. Discharge Attestations Time Spent in Discharge Care*: greater than 30 min Quality Metrics Clinical Quality Measures [ No reported AMI, CVA or VTE this stay] Coding Level of Care Code 58809 Total time (in minutes) for Discharge: 45 Diagnoses Pneumonia J18.9 Hypoxia R09.02 Malignant neoplasm of overlapping sites of tonsil C09.8 Port-A-Cath in place Z95.828 S/P percutaneous endoscopic gastrostomy (PEG) tube placement Z93.1 Hypothyroidism E03.9 Aleksandra infection, oral B37.0 Protein malnutrition E46 Immunocompromised D84.9 Failure of outpatient treatment Z78.9
--- NOTE | 2023-11-18 12:56 | PC.NURSE ---
Patient discharged. Waiting transportation. Will be here at 1630.
[2023-11-18 18:10] LABS: Cryptococcal Source SERUM
[2023-11-19 14:35] LABS: Histoplasma Antigen (Quant) NONE DETECTED; Histoplasma Antigen Interpreta NEGATIVE; Histoplasma Antigen Specimen SERUM
[2023-11-19 15:20] LABS: Blastomyces Antigen Interpret NEGATIVE; Blastomyces Antigen Result NONE DETECTED
[2023-11-19 15:25] LABS: Blastomyces AB Immunodiffusion Negative (Negative); Blastomyces Dermatitidis AB <1:8 titer (<1:8)
[2023-11-20 02:06] LABS: Histoplasma Galactomannan Ag <0.2 ng/mL
[2023-11-22 19:34] LABS: Coccidioides AB CF Serum <1:2; Histoplasma capsulatum H Ab NEGATIVE; Histoplasma capsulatum M Ab NEGATIVE
== END 2023-11-18 17:36 | disposition home or self-care (01) | DRG 177 ==
PROVIDERS: Admitting Provider Student in an Organized Health Care Education/Training Program; PCP Family Medicine; Visit Provider Internal Medicine
DX: J69.0 Pneumonitis due to inhalation of food and vomit (principal); J96.91 Respiratory failure, unspecified with hypoxia; B37.0 Candidal stomatitis; D84.9 Immunodeficiency, unspecified; E46 Unspecified protein-calorie malnutrition; Z87.891 Personal history of nicotine dependence; Z95.828 Presence of other vascular implants and grafts; E03.9 Hypothyroidism, unspecified; Z93.1 Gastrostomy status; Z68.22 Body mass index [BMI] 22.0-22.9, adult; C09.9 Malignant neoplasm of tonsil, unspecified
CPT/HCPCS: 36415; 36591; 36592; 71045; 71275; 80048; 80053; 80061; 81001; 82607; 82746; 83036; 83540; 83550; 83735; 84100; 84145; 84443; 85025; 85378; 86403; 86480; 86612; 86635; 86698; 87040; 87070; 87106; 87205; 87385; 87449; 87486; 87581; 87633; 87641; 94640; 94664; 94760; 94762; 94799; 96372; C9113; J0696; J1642; J1644; J1940; J2270; J2405; J2543; J7030; J7626; Q0144; Q9967